=== PATIENT | female | born 1940 | race Caucasian/White ===

== ENCOUNTER 2022-01-18 09:50 | Day surgery (SDC) | payer MEDICARE, OTHER, SELFPAY ==
--- NOTE | ~2022-01-18 | FL_ITS ---
EXAMINATION: FL GUIDED LUMBAR PUNCTURE CLINICAL INFORMATION: Peripheral neuropathy. COMPARISON: None TECHNIQUE: Following explaining fluoroscopic lumbar puncture procedure, benefits and risks, a written consent was obtained. Patient was placed prone and low back area was cleaned and draped in the usual sterile manner. 1% lidocaine was inserted overlying the L3-L4 disc level. A 22-gauge spinal needle then was inserted with a left paramidline approach intrathecally at the L3-L4 disc level. Patient was placed in left lateral decubitus view and CSF collected in 4 test tubes. Postprocedure, needle was withdrawn and complete hemostasis achieved at puncture site. Sterile Band-Aid applied postprocedure. Patient tolerated procedure extremely well. FINDINGS: On visualized images, there is maintained lumbar lordosis. The vertebral height, alignment and disc heights are normal. There is hardware seen overlying the sacrum with a solitary electrode. Approximately 10 mL of clear CSF fluid was collected in 4 test tubes and sent to lab. FLUOROSCOPY TIME: 0.8 minutes DOSE AREA PRODUCT: 4.779 uGy-m2 (microgray-meter squared) FL/FL guided lumbar puncture LP IMPRESSION: Successful fluoroscopy-guided lumbar puncture performed at L3-L4 disc level.
[2022-01-18 10:08] VITALS: BMI 20.5
[2022-01-18 10:19] LABS: Basophils Percent Auto 0.4 % (0-2); Eosinophils Percent Auto 0.4 % (0-4); Hemoglobin 9.9 g/dl (12.0-16.0); Imm Gran Abs Auto 0.01 X10*3/uL (0.00-0.03); Imm Gran Pct Auto 0.2 % (0.0-0.4); Lymphocytes Absolute Auto 0.1 X10*3/uL (1.2-4.9); MANUAL DIFF FLAG SCAN; Mean Corpuscular HGB Conc 31.9 g/dl (31.0-35.0); Mean Corpuscular Volume 84.5 fL (80.0-98.0); Mean Platelet Volume 11.9 fL (9.4-12.3); Monocytes Absolute Auto 0.2 X10*3/uL (0.1-1.2); Monocytes Percent Auto 4.7 % (2-11); Neutrophils Absolute Auto 4.1 x10*3/uL (2.0-8.3); Neutrophils Percent Auto 92.3 % (45-73); Platelet Count 139 X10*3/uL (160-400); Red Blood Count 3.67 X10*6/uL (4.20-5.50); Red Cell Distribution Width 15.3 % (11.0-16.0); SCAN SMEAR FLAG 1; White Blood Count 4.5 X10*3/uL (4.8-10.8)
[2022-01-18 10:25] LABS: INTERNATIONAL NORM RATIO 1.2 (0.9-1.1); Prothrombin Time 13.6 SEC (10.0-13.1)
[2022-01-18 10:28] LABS: Partial Thromboplastin Time 29.2 SEC (26.0-36.4)
[2022-01-18 10:37] LABS: SLIDE REVIEW VERIFIED
[2022-01-18 12:53] VITALS: BP 110/29; PULSE 56; RESP 18; TEMP 37.4; O2SAT 93
--- NOTE | 2022-01-18 13:11 | ECG_ITS ---
Test Reason : New on set AFIB Blood Pressure : / mmHG Vent. Rate : 061 BPM Atrial Rate : 061 BPM P-R Int : 180 ms QRS Dur : 126 ms QT Int : 478 ms P-R-T Axes : 057 048 076 degrees QTc Int : 481 ms Sinus bradycardia with Premature supraventricular complexes Left ventricular hypertrophy with QRS widening and repolarization abnormality ( Sokolow-Galvan , Arie product , Romhilt-Wilson ) Abnormal ECG No previous ECGs available Referred By: Kavon Galvan Electronically Signed By:ALICE FERGUSON MD
[2022-01-18 13:23] VITALS: BP 126/45; PULSE 55; RESP 18; O2SAT 92
[2022-01-18 13:53] VITALS: BP 125/34; PULSE 63; RESP 18; O2SAT 93
[2022-01-18 14:23] VITALS: BP 113/26; PULSE 56; RESP 18; O2SAT 93
[2022-01-18 14:52] LABS: CSF Appearance Clear, Colorless; CSF Tube # 1
[2022-01-18 14:53] VITALS: BP 117/30; PULSE 61; RESP 20; O2SAT 93
[2022-01-18 15:03] LABS: Appearance CSF CLEAR; CSF Tube # 4; Glucose CSF 80 mg/dL; Total Protein CSF 37.1 mg/dL (15-45)
[2022-01-18 15:04] LABS: CSF Monos 30 %; Color CSF COLORLESS; Lymphocytes CSF 70 %; Neutrophils CSF 0 %; Red Blood Cell CSF 0 MM*3; White Blood Cell CSF 7 MM*3
[2022-01-18 15:23] VITALS: BP 121/34; PULSE 63; RESP 20; TEMP 36.6; O2SAT 93
== END 2022-01-18 15:47 | disposition home or self-care (01) ==
PROVIDERS: Radiology Diagnostic Radiology; PCP Family Medicine; Visit Provider Psychiatry & Neurology Neurology
PROC: 009U3ZZ Drainage of Spinal Canal, Percutaneous Approach (ICD-10-PCS; CPT 62270; principal; 2022-01-18 11:00)
DX: G62.9 Polyneuropathy, unspecified (principal); G70.00 Myasthenia gravis without (acute) exacerbation; R26.89 Other abnormalities of gait and mobility; J44.9 Chronic obstructive pulmonary disease, unspecified; D64.9 Anemia, unspecified; D69.6 Thrombocytopenia, unspecified; Z85.6 Personal history of leukemia; Z79.899 Other long term (current) drug therapy; Z96.659 Presence of unspecified artificial knee joint
CPT/HCPCS: 36415; 62328; 82945; 84157; 85025; 85610; 85730; 87015; 87070; 87205; 89051; 93005

== ENCOUNTER 2023-08-11 14:16 | Inpatient (IN) | payer MEDICARE, OTHER, SELFPAY ==
[2023-08-11] VITALS (8 sets, daily range): BP systolic 115–141; BP diastolic 36–59; PULSE 77–92; RESP 18–33; TEMP 36.7–37.3; O2SAT 74–100; BMI 23.5
--- NOTE | ~2023-08-11 | CT_ITS ---
EXAMINATION: CT CHEST WITHOUT IV CONTRAST CLINICAL INFORMATION: COMPARISON: Previous chest x-ray 08/11/2023. TECHNIQUE: Axial images through the chest without IV contrast. Sagittal and coronal reconstructions on the technologist workstation. This CT examination was performed using dose optimization techniques as appropriate, variously including the following: *Automated exposure control *Adjustment of mA and/or kV according to patient size (this includes techniques or standardized protocols for targeted exams where dose is matched to indication/reason for exam; i.e. extremities or head) *Use of iterative reconstruction technique DLP: 184 mGy-cm FINDINGS: There is evidence of emphysema. There is increased ground-glass attenuation and interstitial markings, right lung greater than left, questionable for pulmonary edema. Differential would include pneumonia. There is denser compressive atelectasis in the lower lobes adjacent to the pleural effusions, right greater than left. There is a 5 mm left lower lobe pulmonary nodule axial image 34 series 2. There is a 1.2 cm nodule in the peripheral or subpleural lateral segment of the right middle lobe. It is uncertain whether this represents area of atelectasis as it appears somewhat linear on sagittal and coronal reconstructed images. The heart is slightly enlarged. Small pericardial effusion. Severe coronary artery and aortic valve calcification. Probable anemia. Evaluation for adenopathy limited due to lack of IV contrast. There is shotty mediastinal lymphadenopathy in the paratracheal pre- and subcarinal regions. There may be calcified left hilar lymph nodes. There are bilateral pleural effusions, moderate on the right and small on the left. There is evidence of severe atherosclerotic disease in the upper abdomen with extensive vascular calcification. Degenerative changes of the spine and mild scoliosis. No fracture seen. CT/CT chest wo IV con IMPRESSION: Enlarged heart and severe coronary artery and aortic valve calcification. Small pericardial effusion. Probable anemia. Emphysema. Ground-glass attenuation and increased interstitial markings in the lungs, right greater than left, question of representing asymmetric distribution of pulmonary edema. Bilateral pleural effusions, right greater than left. 5 mm left lower lobe nodule. According to the UPDATED 2017 Fleischner Society recommendations, the advised followup imaging for less than 6 mm solid nodule: Low-risk no chest CT follow up, and high-risk, optional chest CT follow up in 1 year.
--- NOTE | ~2023-08-11 | XR_ITS ---
EXAMINATION: XR CHEST CLINICAL INFORMATION: Shortness of breath COMPARISON: None available. TECHNIQUE: Frontal view of the chest was obtained. FINDINGS: Chest radiograph is grossly abnormal with increased interstitial markings and some alveolar disease. No prior radiographs are available for comparison. There is mild cardiac enlargement. A small left pleural effusion is present. A trace right pleural effusion is likely present. Findings could be secondary to combination of bronchiectasis/interstitial lung disease plus/minus CHF. Infectious etiologies cannot be entirely excluded. There is bilateral rotator cuff tears along with an old healed fracture of the lateral left femoral neck and old healed left rib fractures. XR/XR chest 1V IMPRESSION: Abnormal chest radiograph with increased interstitial markings and some alveolar disease. Findings could be secondary to combination of bronchiectasis/interstitial lung disease plus/minus CHF. Infectious etiologies cannot be entirely excluded.
--- NOTE | ~2023-08-11 | XR_ITS ---
EXAMINATION: XR CHEST CLINICAL INFORMATION: Low oxygen saturation COMPARISON: 08/11/2023 TECHNIQUE: Frontal view of the chest was obtained. FINDINGS: Cardiomegaly and pulmonary vascular congestion. Interval increased airspace opacity in the perihilar region of the right lung. Findings include generalized interstitial prominence, persistent patchy opacity in the left upper lobe and small pleural effusions. No pneumothorax. A CardioMEMS device projects over the left lower lobe pulmonary artery. There is atherosclerotic calcification of the aorta. No acute osseous abnormality. XR/XR chest 1V IMPRESSION: Cardiomegaly, pulmonary opacities (likely edema) and small pleural effusions. Interval worsening patchy airspace opacity in the perihilar region of the right lung compared to 08/11/2023.
--- NOTE | ~2023-08-11 | NM_ITS ---
PULMONARY PERFUSION ONLY STUDY: CLINICAL INDICATION: Hypoxia. Suspected pulmonary thromboembolism. PROCEDURE: Following the intravenous administration of 1.0 millicuries technetium 99m MAA, images of the chest were obtained in multiple projections using a gamma scintiphotographic camera. COMPARISON: Chest radiograph done on 08/11/2023. PERFUSION IMAGES: No large segmental perfusion defects or other perfusion abnormalities are noted. NM/NM pul perfusion IMPRESSION: Based on perfusion only modified PIOPED 2 criteria, pulmonary thromboembolism is absent.
--- NOTE | 2023-08-11 14:23 | ED_ITS ---
HPI - General Adult General Chief complaint: Dyspnea Stated complaint: SOB Time Seen by Provider: 08/11/23 14:23 History of Present Illness HPI narrative: The patient is an 83-year-old woman with a history of congestive heart failure and COPD who presents with 2 or 3 days of worsening shortness of breath. She is normally on 2 L of oxygen at home. She was mildly short of breath yesterday but today became significantly more short of breath with a cough. She does not believe that she has had any fever. No significant chest pain. No peripheral edema. Patient says that she has been having problems with shortness of breath multiple times over the last couple of months. She has been hospitalized 3 times at [facility]. She says she has been home for about a week following her most recent hospitalization. When paramedics came to her house today to pick her up she asked to be taken to [facility] but because her oxygen saturations were in the 70s paramedics felt they needed to come to the nearest hospital. Related Data Allergies Allergy/AdvReac Type Severity Reaction Status Date / Time SARI Inhibitors Allergy Unknown ANGIOEDEMA Verified 08/11/23 14:24 [SARI INHIBITORS] Review of Systems 2 Review of Systems: Yes all other systems are reviewed and are negative PMFSH Social History Social History Smoked in Last 30 Days: Yes Use of substances other than those prescribed or required for medical reasons: No Advance Directives: No Advance Directives Information Provided: No Physical Exam ED Vital Signs: Vital Signs - 24 hr 08/11/23 14:23 08/11/23 14:36 08/11/23 15:05 Temperature 99.1 F Pulse Rate 92 92 85 Respiratory Rate 33 H 31 H 25 H Blood Pressure 141/38 H 129/45 L Pulse Oximetry 93 84 L Oxygen Delivery Method Non-Rebreather Mask Oxymask Oxygen Flow Rate 6 08/11/23 15:35 08/11/23 16:01 08/11/23 17:11 Temperature 98.1 F Pulse Rate 85 77 Respiratory Rate 25 H 18 Blood Pressure 126/36 L 115/44 L Pulse Oximetry 83 L 100 Oxygen Delivery Method Oxymask Oxymask Oxygen Flow Rate 10 BMI result Body Mass Index 23.5 Const Other: The patient was awake and alert and looked quite short of breath. She had a non-rebreather mask with paramedics. She seemed very anxious as well. HENMT Other: Face is symmetrical. Airway clear. Eyes Other: Pupils are round equal, conjunctivae clear Neck Other: No adenopathy, I think there is jugular venous distention present Resp Other: The patient was tachypneic and had what I thought might be a combination of wheezes and crackles. Cardio Rate: regular rate Rhythm: regular rhythm Heart sounds: S1 normal heart sound present and S2 normal heart sound present GI Other: Abdomen is soft and nontender Skin Other: Skin is dry and unremarkable Neuro Other: The patient is awake and alert. Face is symmetrical. Speech was clear. Moves extremities with symmetrical tone. The patient seems neurologically intact. Extrem Other: No peripheral edema. The left lower leg seems mildly larger than the right but not remarkably so. Medications Administered Discontinued Medications Generic Name Dose Route Start Last Admin Trade Name Freq PRN Reason Stop Dose Admin Albuterol Sulfate 7.5 mg/ 0 mg 08/11/23 14:29 08/11/23 14:33 Albuterol/Ipratropium 3 ml INHALE 08/11/23 14:30 1 each ONCE ONE Administration Furosemide 80 mg 08/11/23 15:14 08/11/23 15:35 Furosemide 100 Mg/10 Ml Vial IVPUSH 08/11/23 15:15 80 mg ONCE ONE Administration Protocol Ceftriaxone Sodium 1 gm/ 50 mls @ 100 mls/hr 08/11/23 15:27 08/11/23 16:11 Sodium Chloride IV 08/11/23 15:56 Infused ONCE ONE Infusion Azithromycin 500 mg/ Sodium 250 mls @ 125 mls/hr 08/11/23 15:27 08/11/23 15:59 Chloride IV 08/11/23 17:26 125 mls/hr ONCE ONE Administration Methylprednisolone Sodium Succinate 80 mg 08/11/23 16:11 08/11/23 16:27 Methylprednisolone Sod Succ 125 Mg/2 Ml Vial IVPUSH 08/11/23 16:12 80 mg ONCE ONE Administration Ondansetron HCl 4 mg 08/11/23 14:30 08/11/23 15:04 Ondansetron Hcl 4 Mg/2 Ml Vial IVPUSH 08/11/23 14:31 4 mg ONCE ONE Administration Ondansetron HCl 4 mg 08/11/23 15:39 08/11/23 16:00 Ondansetron Hcl 4 Mg/2 Ml Vial IVPUSH 08/11/23 15:40 4 mg ONCE ONE Administration Medical Decision Making Medical Decision Making [facility] Narrative: The patient is an 83-year-old female with a history of congestive heart failure and COPD who presents in acute respiratory distress with hypoxia. She looks significantly ill and was seen right away. My initial impression was that she had a great deal of wheezing and so she was given bronchodilator treatments. A portable chest x-ray I thought suggested congestive heart failure and so she was also given furosemide. She felt warm although she was not febrile. However she has had a cough. She was given IV antibiotics after blood cultures have been drawn. The patient reports that she has been trying to wean off steroids which were prescribed for apparent chronic inflammatory demyelinating polyneuropathy (she reports she received no benefit from the steroids). She was therefore somewhat reluctant to receive any steroids initially but ultimately accepted a dose of IV methylprednisolone. Patient was observed. Her oxygen saturations improved and her respiratory effort improved. I think she is stable for admission for the hospitalist service on telemetry. Of note the patient has some mild asymmetry of her lower legs with the left leg being slightly larger than the right. Given the abnormal x-ray in the abnormal breath sounds and the positive response to treatment for COPD and CHF I think pulmonary embolism would be very unlikely. Ultrasound was not available for a DVT steady. Lab Data 08/11/23 14:46 08/11/23 14:46 Labs: Lab Results 08/11/23 08/11/23 08/11/23 Range/Units 14:46 15:04 17:27 WBC 11.7 H (4.8-10.8) X10*3/uL RBC 4.06 L (4.20-5.50) X10*6/uL Hgb 9.0 L (12.0-16.0) g/dl Hct 31.4 L (37.0-47.0) % MCV 77.3 L (80.0-98.0) fL MCH 22.2 L (27.0-33.0) pg MCHC 28.7 L (31.0-35.0) g/dl RDW 17.1 H (11.0-16.0) % Plt Count 251 D (160-400) X10*3/uL MPV 11.6 (9.4-12.3) fL Immature Gran % (Auto) 0.6 H (0.0-0.4) % Neut % (Auto) 80.2 H (45-73) % Lymph % (Auto) 9.1 L (20-40) % [place] % (Auto) 7.3 (2-11) % Eos % (Auto) 2.1 (0-4) % Baso % (Auto) 0.7 (0-2) % Lymph # (Auto) 1.1 L (1.2-4.9) X10*3/uL [place] # (Auto) 0.9 (0.1-1.2) X10*3/uL Eos # (Auto) 0.3 (0.0-0.4) X10*3/uL Baso # (Auto) 0.1 (0.0-0.2) X10*3/uL Abs Immat Gran (auto) 0.07 H (0.00-0.03) X10*3/uL Absolute Neuts (auto) 9.4 H (2.0-8.3) x10*3/uL Absolute Nucleated RBC 0.000 (0.0-0.012) X10*3/uL Nucleated RBC % (auto) 0.0 (0.0-0.2) /100WBC PT 13.4 H (11.1-13.3) SEC INR 1.1 (0.9-1.1) VBG pH 7.38 (7.32-7.43) VBG pCO2 47 mmHg VBG pO2 140 mmHg VBG HCO3 28 H (22-26) mmol/L VBG O2 Saturation 99.0 % VBG Base Excess 2.9 mmol/L Sodium 140 (135-145) mmol/L Potassium 4.8 (3.3-5.1) mmol/L Chloride 104 (96-108) mmol/L Carbon Dioxide 24 (22-29) mmol/L Anion Gap 17 (12-20) BUN 23 H (9-16) mg/dL Creatinine 1.29 (0.5-1.4) mg/dL Estim Creat Clear Calc 25.7 Estimated GFR 39 Random Glucose 200 H (60-115) mg/dL Lactic Acid 2.2 H* (0.5-2.0) mmol/L Lactic Acid F/U @ 2Hr 1.1 (0.5-2.0) mmol/L Calcium 9.2 (8.4-10.2) mg/dL Magnesium 2.2 (1.6-2.6) mg/dL Total Bilirubin 0.4 (0.0-1.0) mg/dL Direct Bilirubin 0.1 (0.0-0.5) mg/dL AST 18 (5-31) U/L ALT 7 (0-31) U/L Alkaline Phosphatase 61 (39-117) U/L Troponin I High Sens 40.6 H 42.2 H (<3.5-17.0) ng/L C-Reactive Protein 0.86 H (< or = 0.50) mg/dL B-Natriuretic Peptide 3159 H (<100) pg/mL Total Protein 7.0 (6.5-8.0) g/dL Albumin 3.7 (3.5-5.0) g/dL Urine Color Yellow Urine Appearance Clear Urine pH 5.5 (5.0-9.0) Ur Specific [place] 1.010 (1.005-1.025) Urine Protein Negative (Neg-Trace) mg/dL Urine Glucose (UA) Negative (Negative) mg/dL Urine Ketones Negative (Negative) mg/dL Urine Blood Negative (Negative) Urine Nitrite Negative (Negative) Ur Leukocyte Esterase Small (1+) H (Negative) Urine RBC 0-2 (0-2) /HPF Urine WBC 6-10 (0-5) /HPF Ur Squamous Epith Cells 0-2 (0-2) /HPF Urine Bacteria None Seen (None Seen) Hyaline Casts 3-5 (0-2) /LPF Ethyl Alcohol < 10 mg/dL Influenza Type A (PCR) NEGATIVE (Negative) Influenza Type B (PCR) NEGATIVE (Negative) RSV RNA Qual (PCR) NEGATIVE (Negative) SARS-CoV-2 RNA (RT-PCR) NEGATIVE (Negative) Critical Care Time Critical Care Time Total Critical Care Time: 45 Attestation: The patient was critically ill with a high probability of imminent or life- threatening deterioration. ?I spent greater than 30 minutes of discontinuous time evaluating the patient, delivering critical care at the bedside, discussing evaluating data with consultants. ?Critical care time does not include time spent performing separately billable procedures or teaching. ?Time spent performing critical care with 45 minutes. Discharge Plan Discharge Clinical Impression: Acute dyspnea, Congestive heart failure, Acute exacerbation of chronic obstructive pulmonary disease Patient Disposition: Admitted As Inpatient Print Language: Georgian
--- NOTE | 2023-08-11 14:23 | ECG_ITS ---
Test Reason : SOB Blood Pressure : / mmHG Vent. Rate : 086 BPM Atrial Rate : 086 BPM P-R Int : 194 ms QRS Dur : 128 ms QT Int : 388 ms P-R-T Axes : 034 078 -07 degrees QTc Int : 464 ms Sinus rhythm with Premature ventricular complexes Left ventricular hypertrophy with QRS widening and repolarization abnormality ( Arie product ) Inferior infarct (cited on or before 11-AUG-2023) Abnormal ECG When compared with ECG of 18-JAN-2022 13:26, Premature ventricular complexes are now Present Referred By: Nasim Estevez Electronically Signed By:ARIC PRIETO
[2023-08-11] MEDS: Albuterol Sulfate 7.5 MG, Albuterol/Iprat 2.5/0.5MG 3 ML 3 ML INHALE (14:33)
[2023-08-11 14:57] LABS: MANUAL DIFF FLAG NO
[2023-08-11 15:01] LABS: Basophils Absolute Auto 0.1 X10*3/uL (0.0-0.2); Basophils Percent Auto 0.7 % (0-2); Eosinophils Absolute Auto 0.3 X10*3/uL (0.0-0.4); Eosinophils Percent Auto 2.1 % (0-4); Hematocrit 31.4 % (37.0-47.0); Imm Gran Abs Auto 0.07 X10*3/uL (0.00-0.03); Imm Gran Pct Auto 0.6 % (0.0-0.4); Lymphocytes Absolute Auto 1.1 X10*3/uL (1.2-4.9); Lymphocytes Percent Auto 9.1 % (20-40); Mean Corpuscular HGB Conc 28.7 g/dl (31.0-35.0); Mean Corpuscular Hemoglobin 22.2 pg (27.0-33.0); Mean Corpuscular Volume 77.3 fL (80.0-98.0); Mean Platelet Volume 11.6 fL (9.4-12.3); Monocytes Absolute Auto 0.9 X10*3/uL (0.1-1.2); Monocytes Percent Auto 7.3 % (2-11); Neutrophils Absolute Auto 9.4 x10*3/uL (2.0-8.3); Neutrophils Percent Auto 80.2 % (45-73); Platelet Count 251 X10*3/uL (160-400); Red Blood Count 4.06 X10*6/uL (4.20-5.50); Red Cell Distribution Width 17.1 % (11.0-16.0); White Blood Count 11.7 X10*3/uL (4.8-10.8)
[2023-08-11] MEDS: ondansetron HCL 4 MG/2 ML VIAL IVPUSH ×3 (15:04→19:31)
[2023-08-11 15:11] LABS: INTERNATIONAL NORM RATIO 1.1 (0.9-1.1); Prothrombin Time 13.4 SEC (11.1-13.3)
[2023-08-11 15:11] LABS: Venous Blood Gas Refer to POC result
[2023-08-11 15:12] LABS: VBG Base Excess 2.9 mmol/L; VBG HCO3 28 mmol/L (22-26); VBG pCO2 47 mmHg; VBG pH 7.38 (7.32-7.43); VBG pO2 140 mmHg
[2023-08-11 15:22] LABS: Ethanol < 10 mg/dL; Lactic Acid 2.2 mmol/L (0.5-2.0)
[2023-08-11 15:28] LABS: Alanine Aminotransferase 7 U/L (0-31); Albumin Level 3.7 g/dL (3.5-5.0); Alkaline Phosphatase 61 U/L (39-117); Anion Gap 17 (12-20); Aspartate Amino Transferase 18 U/L (5-31); Bilirubin Direct 0.1 mg/dL (0.0-0.5); Bilirubin Total 0.4 mg/dL (0.0-1.0); Blood Urea Nitrogen 23 mg/dL (9-16); C Reactive Protein 0.86 mg/dL (< or = 0.50); Calcium 9.2 mg/dL (8.4-10.2); Carbon Dioxide 24 mmol/L (22-29); Chloride 104 mmol/L (96-108); Creatinine Clr Calc Pharmacy 25.7; Estimated Glomerular Filt Rate 39; Glucose Random 200 mg/dL (60-115); Magnesium 2.2 mg/dL (1.6-2.6); Potassium 4.8 mmol/L (3.3-5.1); Sodium 140 mmol/L (135-145)
[2023-08-11 15:32] LABS: Troponin-I High Sensitivity 40.6 ng/L (<3.5-17.0)
[2023-08-11] MEDS: cefTRIAXone sodium 1 GM in 0.9 % Sodium Chloride 50 ML IV (15:35)
[2023-08-11] MEDS: Furosemide 100 MG/10 ML VIAL 80 MG IVPUSH (15:35)
[2023-08-11 15:57] LABS: Influenza A PCR NEGATIVE (Negative); Influenza B PCR NEGATIVE (Negative); Resp Syncy Virus RNA Qual PCR NEGATIVE (Negative); SARS COV2 PCR INHOUSE NEGATIVE (Negative)
[2023-08-11] MEDS: Azithromycin 500 MG in 0.9 % Sodium Chloride 250 ML 125 MG IV (15:59)
[2023-08-11 16:18] LABS: B Type Natriuretic Peptide 3159 pg/mL (<100)
[2023-08-11] MEDS: methylPREDNISolone Sod Succ 125 MG/2 ML VIAL 80 MG IVPUSH (16:27)
[2023-08-11 16:53] LABS: Reflex Lactate? Lactic Acid Added
[2023-08-11 17:38] LABS: Appearance Urine Clear; Color Urine Yellow; Glucose Urine UA Negative (Negative); Leukocyte Esterase Urine Small (1+) (Negative); Nitrite Urine Negative (Negative); PH 5.5 (5.0-9.0); UMIC TRIGGER UACC YES; Urine Blood Negative (Negative); Urine Ketones Negative (Negative); Urine Protein Negative (Neg-Trace)
[2023-08-11 17:46] LABS: ~Lactic Acid-LAB USE ONLY 1.1 mmol/L (0.5-2.0)
[2023-08-11 17:57] LABS: Troponin-I High Sensitivity 42.2 ng/L (<3.5-17.0)
[2023-08-11 18:02] LABS: Bacteria Urine None Seen (None Seen); RBC Urine 0-2 /HPF (0-2); Squamous Epithelial Cell Urine 0-2 /HPF (0-2); UACC Culture Trigger YES
--- NOTE | 2023-08-11 18:04 | PC.NURSE ---
ARRIVES FROM HOME AFTER BECOMING SOB TODAY. RECENT ADMISSION TO [facility] FOR THE SAME. HX CHF, COPD, ON 2L OF O2 AT BASELINE. ABD BREATHING ON ARRIVAL, 93% ON NRB. RHONCHI, WHEEZING AUDIBLE, ALERT, ORIENTED X4. SIGNIFICANT IMPROVEMENT WITH WORK OF BREATHING AFTER DUONEB, LASIX THOUGH SPO2 REMAINED 83% AT 6L FOR A PERIOD. DENIES CP. NITRO PASTE HELD DUE TO LOW DBP. PT RETAINS URINE, SELF CATHS AT HOME, ADAMES INSERTED. 2 #20S IN LFA. PT HAS COMPLAINED OF ONGOING NAUSEA, DENIES ANY PAIN, REQUESTS TO BE LEFT ALONE TO SLEEP.SHE IS AWARE OF THE PLAN FOR ADMISSION TO INPT.
[2023-08-11] MEDS: Albuterol Sulfate 2.5 MG, Albuterol/Iprat 2.5/0.5MG 3 ML 3 ML INHALE (18:34)
--- NOTE | 2023-08-11 18:40 | P.HPHOSP_ITS ---
History of Present Illness Date of Service: 08/11/23 Attending physician on admission: Jorge Luis Carcamo Chief Complaint: sob 83-year-old female with history of AAA, coronary artery disease, heart failure reduced ejection fraction with EF 30-35%, moderate to severe aortic valve regurgitation, hypertension, hyperlipidemia, history of myasthenia gravis, peripheral artery disease, asthma/copd, chronic hypoxemic respiratory failure, urinary retention requiring self straight catheterization, and CKD stage 3 presented to the ED earlier today for evaluation of dyspnea. The patient has had multiple admissions to [facility] with most recent discharge on 07/22 for CHF exacerbation. She follows with Dr. Sanders in Cardiology and reports compliance with her 2 L supplemental O2 at rest and 3 L with ambulation as well as 40 mg of Lasix in the morning and 20 mg of Lasix in the evening. She states that she was feeling well following her discharge but around 3 days ago began developing shortness of breath again both at rest and with exertion that worsened significantly last night. She is also endorsing significant orthopnea and bilateral lower extremity edema. Does not weigh herself on a daily basis but does not feel she is gained weight. She denies any recent illness. No fevers, chills, abdominal pain, nausea, vomiting, diarrhea, dysuria, cough, wheezing, lightheadedness, chest pain. Since arrival, was tachypneic with significant improvement following IV diuresis. She was also initially on a non-rebreather but has been weaned to OxyMask now maintaining oximetry 95%. She is afebrile. There is a mild leukocytosis of 11.7. She is stable, chronic microcytic anemia. Renal function baseline, electrolyte levels normal. Initial lactic acid 2.2, repeat 1.1. Initial troponin 40.6, repeat 42.2 BNP 3159. Procalcitonin 0.04. Urinalysis unremarkable. Negative for COVID-19, RSV, flu. Ethyl alcohol level undetectable. Chest x-ray shows increased interstitial markings and some alveolar disease likely combination of bronchiectasis, interstitial lung disease plus-minus CHF. EKG shows sinus rhythm with PSVT complexes and occasional PVCs with nonspecific T-wave abnormality but no ST or depressions. In the ED, has received multiple DuoNebs, 80 mg Lasix, ceftriaxone, azithromycin, 80 mg methylprednisolone and ondansetron. Review of Systems 2 Review of Systems: Yes all other systems are reviewed and are negative [facility] Medical History Peripheral artery disease Myasthenia gravis Hypertension Urinary retention AAA (abdominal aortic aneurysm) Moderate to severe aortic valve regurgitation Heart failure with reduced ejection fraction Cigarette smoker Asthma-COPD overlap syndrome Social History Smoked in Last 30 Days: Yes Use of substances other than those prescribed or required for medical reasons: No Advance Directives: No Advance Directives Information Provided: No Meds Allergies Allergy/AdvReac Type Severity Reaction Status Date / Time SARI Inhibitors Allergy Unknown ANGIOEDEMA Verified 08/11/23 14:24 [SARI INHIBITORS] Active Medications: Current Medications Acetaminophen (Acetaminophen 325 Mg Tablet) 650 mg PO Q6H PRN PRN Reason: Pain, Mild, headache, fever Enoxaparin Sodium (Enoxaparin Sodium 30 Mg/0.3 Ml Syringe) 30 mg SUBCUT Q24H [facility] Magnesium Hydroxide (Milk Of Magnesia 30 Ml Oral.Susp) 30 ml PO DAILY PRN PRN Reason: Constipation Ondansetron HCl (Ondansetron Hcl 4 Mg/2 Ml Vial) 4 mg IVPUSH Q8H PRN PRN Reason: Nausea and Vomiting Sodium Chloride (0.9 % Sodium Chloride Flush 3 Ml Syringe) 3 ml IVFLUSH QSHIFT [facility] Home Medications ?Medication ?Instructions ?Recorded ?Confirmed ?Last Taken ?Type albuterol sulfate 90 mcg/actuation 2 puff inhalation Q4H PRN wheezing 08/11/23 08/11/23 Unknown History aerosol inhaler amlodipine 10 mg tablet 10 mg PO BID 08/11/23 08/11/23 Unknown History atenolol 50 mg tablet 25 mg PO BID 08/11/23 08/11/23 Unknown History budesonide 0.5 mg/2 mL suspension 0.5 mg inhalation BID 08/11/23 08/11/23 Unknown History for nebulization desmopressin 0.2 mg tablet 0.2 mg PO DAILY 08/11/23 08/11/23 Unknown History furosemide 20 mg tablet 20 mg PO BEDTIME 08/11/23 08/11/23 Unknown History furosemide 20 mg tablet 40 mg PO QAM 08/11/23 08/11/23 Unknown History ipratropium 0.5 mg-albuterol 3 mg 3 ml inhalation QID 08/11/23 08/11/23 Unknown History (2.5 mg base)/3 mL nebulization soln losartan 50 mg tablet 50 mg PO DAILY 08/11/23 08/11/23 Unknown History mirabegron 50 mg tablet,extended 50 mg PO DAILY 08/11/23 08/11/23 Unknown History release 24 hr omeprazole 40 mg capsule,delayed 40 mg PO BID PRN Heartburn 08/11/23 08/11/23 Unknown History release oxcarbazepine 600 mg tablet 600 mg PO BEDTIME 08/11/23 08/11/23 Unknown History prednisone 1 mg tablet 0.5 mg PO DAILY 08/11/23 08/11/23 Unknown History rosuvastatin 20 mg tablet 20 mg PO DAILY 08/11/23 08/11/23 Unknown History terazosin 10 mg capsule 20 mg PO BEDTIME 08/11/23 Unknown History trazodone 100 mg tablet 100 mg PO DAILY 08/11/23 08/11/23 Unknown History Physical Exam 2 Vital Signs and Narrative: Vital Signs: Last Vital Signs Temp 98.1 F 08/11/23 17:11 Pulse 81 08/11/23 18:36 Resp 18 08/11/23 18:36 BP 115/44 L 08/11/23 16:01 Pulse Ox 100 08/11/23 17:11 O2 Del Method Oxymask 08/11/23 17:11 O2 Flow Rate 10 08/11/23 16:01 Oxygen Flow Rate 15 08/11/23 14:23 BMI result Body Mass Index 23.5 Constitutional - Awake and Alert, No apparent distress Eyes - PERRLA, EOMI Cardiovascular - S1S2, RRR, 2+ LLE edema , 1+ RLE, no jvd Respiratory - Normal lung expansion, Normal respiratory effort, No respiratory distress on oxymask, crackles bilaterally R>L Gastrointestinal - NT / ND; +BS; No rebound or guarding Extremities - no calf tenderness bilaterally, no swelling Skin - Warm/Dry Neurological - Alert & oriented x3 Psychological - Appropriate affect Results Labs 08/11/23 14:46 08/11/23 14:46 Labs: Laboratory Results - last 24 hr 08/11/23 08/11/23 08/11/23 14:46 15:04 17:27 MCV 77.3 L MCH 22.2 L MCHC 28.7 L RDW 17.1 H Plt Count 251 D MPV 11.6 Immature Gran % (Auto) 0.6 H Neut % (Auto) 80.2 H Lymph % (Auto) 9.1 L [place] % (Auto) 7.3 Eos % (Auto) 2.1 Baso % (Auto) 0.7 Lymph # (Auto) 1.1 L [place] # (Auto) 0.9 Eos # (Auto) 0.3 Baso # (Auto) 0.1 Abs Immat Gran (auto) 0.07 H Absolute Neuts (auto) 9.4 H Absolute Nucleated RBC 0.000 Nucleated RBC % (auto) 0.0 PT 13.4 H INR 1.1 VBG pH 7.38 VBG pCO2 47 VBG pO2 140 VBG HCO3 28 H VBG O2 Saturation 99.0 VBG Base Excess 2.9 Anion Gap 17 Estim Creat Clear Calc 25.7 Estimated GFR 39 Random Glucose 200 H Lactic Acid 2.2 H* Lactic Acid F/U @ 2Hr 1.1 Calcium 9.2 Magnesium 2.2 Total Bilirubin 0.4 Direct Bilirubin 0.1 AST 18 ALT 7 Alkaline Phosphatase 61 Troponin I High Sens 40.6 H 42.2 H C-Reactive Protein 0.86 H B-Natriuretic Peptide 3159 H Total Protein 7.0 Albumin 3.7 Urine Color Yellow Urine Appearance Clear Urine pH 5.5 Ur Specific [place] 1.010 Urine Protein Negative Urine Glucose (UA) Negative Urine Ketones Negative Urine Blood Negative Urine Nitrite Negative Ur Leukocyte Esterase Small (1+) H Urine RBC 0-2 Urine WBC 6-10 Ur Squamous Epith Cells 0-2 Urine Bacteria None Seen Hyaline Casts 3-5 Ethyl Alcohol < 10 Influenza Type A (PCR) NEGATIVE Influenza Type B (PCR) NEGATIVE RSV RNA Qual (PCR) NEGATIVE SARS-CoV-2 RNA (RT-PCR) NEGATIVE Imaging Radiologist's Impressions: Impressions Chest X-Ray 08/11/23 15:10 IMPRESSION: Abnormal chest radiograph with increased interstitial markings and some alveolar disease. Findings could be secondary to combination of bronchiectasis/interstitial lung disease plus/minus CHF. Infectious etiologies cannot be entirely excluded. Assessment and Plan (1) Congestive heart failure: Status: Acute (2) Acute on chronic hypoxic respiratory failure: Status: Acute Plan 83-year-old female with history of AAA, coronary artery disease, heart failure reduced ejection fraction with EF 30-35%, moderate to severe aortic valve regurgitation, hypertension, hyperlipidemia, history of myasthenia gravis, peripheral artery disease, asthma/copd, chronic hypoxemic respiratory failure, urinary retention requiring self straight catheterization, and CKD stage 3 admitted for further management of acute on chronic hypoxemic respiratory failure secondary to CHF exacerbation. #acute on chronic hypoxemic respiratory failure secondary to CHF exacerbation -CXR with increased interstitial markings. BNP >3000 -Echo Summary 06/30/2023 from [facility]: The left ventricle is moderately dilated (5.9 cm). There is asymmetric septal hypertrophy (2.1 cm). The left ventricular wall thickness is upper normal. The LV systolic function is moderately reduced. The left ventricular ejection fraction is 30-35 %. There is moderate global hypokinesis with regional variation. Unable to assess diastolic function due to severe mitral annulus calcification. The aortic valve is trileaflet. The aortic valve appears severely calcified. The aortic valve leaflet opening is mildly decreased. There is moderate aortic regurgitation. There is mild aortic stenosis. There is severe posterior mitral annular calcification. The mitral valve and subchordal apparatus appear calcified. Mitral leaflet excursion is mildly reduced. There is moderate to severe mitral regurgitation. There is no significant mitral stenosis (mean gradient of 4 mmHg at heart rate of 67 bpm). The ascending aorta and aortic root are normal in size. Abdominal aorta is not well visualized, dilatation is suggested in limited images - recommend dedicated evaluation. The right ventricular size and function appears grossly normal. There is a small circumferential pericardial effusion most notable anteriorly. There is no evidence of tamponade. The left ventricle is moderately dilated (5.9 cm). There is asymmetric septal hypertrophy (2.1 cm). The left ventricular wall thickness is upper normal. The LV systolic function is moderately reduced. The left ventricular ejection fraction is 30-35 %. There is moderate global hypokinesis with regional variation. Unable to assess diastolic function due to severe mitral annulus calcification. The ascending aorta and aortic root are normal in size. Abdominal aorta is not well visualized, dilatation is suggested in limited images - recommend dedicated evaluation. The pulmonary artery systolic pressure estimation is 65-70 mmHg. There is pulmonary hypertension. There is a small circumferential pericardial effusion most notable anteriorly. There is no evidence of tamponade. -40 mg IV Lasix b.i.d. -strict I&O-has Odell catheter in place due to urinary retention (straight catheterizes at home at baseline) -daily weights -cardiac diet -consider cardiology consult if no improvement -continue atenolol, losartan. Apparently was previously on spironolactone but is no longer taking -follow renal function, lytes. Trend BNP -wean supplemental O2 as tolerated # asthma/COPD overlap -doubt acute exacerbation. Patient denies cough, wheezing -DuoNebs p.r.n., continue maintenance inhaler # hypertension -continue atenolol, amlodipine, furosemide, losartan # myasthenia gravis -has been tapering prednisone, currently on 0.5 mg daily, continue # urinary retention -hold desmopressin. Can continue mirabegron. Self-catheterizations at home, has Odell catheter in place at this time for fluid management with urinary retention # CKD stage 3 -renal function baseline # PVD/hyperlipidemia -statin DVT prophylaxis-Lovenox Full code Patient requires inpatient stay at least 2 midnights for management of CHF exacerbation with acute on chronic hypoxemic respiratory failure requiring IV diuresis, close monitoring of intake and output, as well as close monitoring of respiratory status to monitor for and prevent decompensation Quality Stroke Does the patient have a stroke diagnosis?: No VTE Prior VTE?: No VTE Risk Level:: Medical - moderate - high VTE Device Contraindication: Treatment Not Indicated VTE Drug Contraindication: N/A - Med Ordered
[2023-08-11 18:58] LABS: Procalcitonin 0.04 ng/mL
--- NOTE | 2023-08-11 19:16 | PHA.MEDREC ---
Addendum entered by Ronnie Monsivais 08/12/23 09:19: Called [facility] pharmacy, they have no prescriptions on file for her, confirmed terazosin on med rec according to claim history. Original Note: Pharmacy Consult ? Medication Reconciliation Pharmacy has completed the medication reconciliation. spoke with patient. She was able to confirm trazodone, rosuvastatin, oxcarbazepine, prednisone, omeprazole, atenolol (she said she cuts in half), myrbetriq, lasix, and reported she was on 3 breathing treatments but claims only show 2 and an albuterol inhaler. Used [facility] discharge medications and claim history to confirm the ones she was unsure about. Patient said she was not on spironolactone and only on one water pill (the lasix) despite it being in claims and in [facility] discharge list, Provider is aware. Terazosin on [facility] discharge med list says 1mg at bedtime but in her claims it has 10 mg capsules - 2 at bedtime. Will call [facility] pharmacy in the morning to se if anything was filled there that is not showing on claims. Will update and let provider know of any changes. Patient also reports cutting 3 of her medications in half however she was only able to recognize one that she cuts in half.
[2023-08-11] MEDS: Enoxaparin Sodium 30 MG/0.3 ML SYRINGE SUBCUT (19:32)
[2023-08-11] MEDS: Nicotine 7 MG PATCH.TD24 TRANSDERMA (19:32)
[2023-08-11] MEDS: LORazepam 0.5 MG TABLET PO (19:32)
[2023-08-11 19:51] LABS: Iron 48 mcg/dL (30-160); Percent Iron Saturation 15 % (15-50); Total Iron Binding Capacity 312 mcg/dL (228-428); Unsaturated Iron Binding 264 ug/dL
[2023-08-11 20:07] LABS: Ferritin 19 ng/mL (10-250)
[2023-08-11] MEDS: Metoclopramide HCl 10 MG/2 ML VIAL 5 MG IVPUSH (21:14)
[2023-08-11] MEDS: LORazepam 1 MG TABLET PO (21:14)
[2023-08-11] MEDS: OXcarbazepine 300 MG TABLET 600 MG PO (21:15)
[2023-08-11] MEDS: amLODIPine Besylate 10 MG TABLET PO (21:15)
[2023-08-11] MEDS: atenoloL 25 MG TABLET PO (21:15)
[2023-08-12] VITALS (14 sets, daily range): BP systolic 114–141; BP diastolic 38–64; PULSE 65–85; RESP 18–25; TEMP 36.4–37.8; O2SAT 84–98; BMI 21.8
[2023-08-12] MEDS: 0.9 % Sodium Chloride Flush 3 ML SYRINGE IVFLUSH ×3 (00:33→21:38)
--- NOTE | 2023-08-12 02:00 | PC.NURSE ---
Patient is alert and oriented x3. VSS, O2 Sat 94-98% on Oxymask at 4 LPM. Patient denies any pain at present, currently resting in a stretcher bed, call argueta in reach, plan of care ongoing.
[2023-08-12 05:01] LABS: MANUAL DIFF FLAG NO
[2023-08-12 05:02] LABS: Basophils Percent Auto 0.2 % (0-2); Hematocrit 27.3 % (37.0-47.0); Hemoglobin 7.9 g/dl (12.0-16.0); Imm Gran Abs Auto 0.02 X10*3/uL (0.00-0.03); Imm Gran Pct Auto 0.3 % (0.0-0.4); Lymphocytes Absolute Auto 0.3 X10*3/uL (1.2-4.9); Lymphocytes Percent Auto 5.3 % (20-40); Mean Corpuscular HGB Conc 28.9 g/dl (31.0-35.0); Mean Corpuscular Hemoglobin 22.1 pg (27.0-33.0); Mean Corpuscular Volume 76.3 fL (80.0-98.0); Mean Platelet Volume 10.7 fL (9.4-12.3); Monocytes Absolute Auto 0.3 X10*3/uL (0.1-1.2); Monocytes Percent Auto 5.7 % (2-11); Neutrophils Absolute Auto 5.2 x10*3/uL (2.0-8.3); Neutrophils Percent Auto 88.5 % (45-73); Platelet Count 165 X10*3/uL (160-400); Red Blood Count 3.58 X10*6/uL (4.20-5.50); White Blood Count 5.8 X10*3/uL (4.8-10.8)
[2023-08-12 05:15] LABS: Anion Gap 16 (12-20); Blood Urea Nitrogen 27 mg/dL (9-16); Calcium 8.9 mg/dL (8.4-10.2); Carbon Dioxide 25 mmol/L (22-29); Chloride 104 mmol/L (96-108); Estimated Glomerular Filt Rate 40; Glucose Random 125 mg/dL (60-115); Sodium 141 mmol/L (135-145)
--- NOTE | 2023-08-12 05:15 | PC.NURSE ---
Patient appears to be sleeping, respirations even and unlabored, call argueta within reach, plan of care ongoing
[2023-08-12 05:23] LABS: B Type Natriuretic Peptide 4460 pg/mL (<100)
--- NOTE | 2023-08-12 09:27 | MHC.CM.PN ---
CM met with Patient at bedside and attempted to address IMM with her but she stated that she has, 50 thousand copies, and did not want CM leaving another one. Patient lives in a condo with a Friend and she uses a walker to assist with mobility. Patient may benefit from a VNA and her home O2 is supplied by [facility]. CM has initiated and will follow for dc planning. Patient did not want to discuss a HCP and the PCP is Dr.Lauren Ford.
[2023-08-12] MEDS: Budesonide 0.5 MG/2 ML AMPUL.NEB INHALE ×2 (09:33→19:55)
--- NOTE | 2023-08-12 09:51 | PM.CNCAR ---
History of Present Illness History of Present Illness Date of Service: 08/12/23 Chief complaint: Chf exacerbation Narrative: This is a cardiology consultation regarding congestive heart failure. Per recent [facility] discharge summary, she has cardiomyopathy ejection fraction 30-35% and she also has COPD with supplemental oxygen therapy. It appears that she has had multiple hospitalizations for a combination of both COPD and CHF. It seems that she also has a CardioMEMS in place. Question of myasthenia gravis and demyelinating polyneuropathy. She was admitted to [facility] and discharged in July. She states that she again did not feel good and her shortness of breath got worse and now she has back in the hospital. No significant leg swelling at this time. No clear-cut anginal-type complaints. Review of Systems Review of Systems: Yes all other systems are reviewed and are negative Constitutional: Constitutional: Reports as per HPI and Reports no additional constitutional complaints Eyes: Eyes: Reports as per HPI and Denies no additional eye complaints ENT: Denies system reviewed and no additional complaints, except as documented and Reports as per HPI Cardiovascular: Cardiovascular: Reports as per HPI, Reports no additional cardiovascular complaints, Denies acrocyanosis, Denies cool extremities, Denies chest pain, Denies leg edema, Denies lightheadedness, Denies palpitations and Reports dyspnea Respiratory: Respiratory: Reports as per HPI, Denies no additional respiratory complaints and Reports dyspnea Gastrointestinal: Gastrointestinal: Reports as per HPI and Denies no additional gastrointestinal complaints Genitourinary: Genitourinary: Reports as per HPI Musculoskeletal: Musculoskeletal: Reports no additional musculoskeletal complaints and Reports as per HPI Integumentary/Breasts: Skin/Breast: Reports system reviewed and no additional complaints, except as docu Neurologic: Reports system reviewed and no additional complaints, except as documented and Reports as per HPI Psychiatric: Psychiatric: Reports no additional psychiatric complaints and Reports as per HPI Endocrine: Endocrine: Reports no additional endocrine complaints, Reports as per HPI and Denies palpitations Hematologic/Lymphatic: Hematologic/Lymphatic: Reports no additional hematologic/lymphatic complaints and Reports as per HPI Allergic/Immunologic: Allergic/Immunologic: Reports no additional allergic/immunologic complaints and Reports as per HPI [facility] Past Medical History Medical History Peripheral artery disease Myasthenia gravis Hypertension Urinary retention AAA (abdominal aortic aneurysm) Moderate to severe aortic valve regurgitation Heart failure with reduced ejection fraction Cigarette smoker Asthma-COPD overlap syndrome Family History Pertinent family history: No pertinent family history Social History Social History Household Members: Friend(s) Housing: Condominium Do you presently have visiting nurse or other home services: No Patient Tobacco Use Status: Former Tobacco user Tobacco use type: Cigarette Smoked in Last 30 Days: Yes e-Cigarette/Vaping Use: Never Used Patient Interested in Nicotine Replacement: Yes Patient Given Instructions on How to Stop Smoking: Yes Date Education Initiated: 08/12/23 Second Hand Smoke Exposure: Yes Use of substances other than those prescribed or required for medical reasons: No Currently Displaying Signs/Symptoms of Drug Intoxication Withdrawal: No Any prior treatment program specific to substance use: No Have you been hit, kicked, punched, or otherwise hurt by someone within the past year? If so, by whom?: No Do you feel safe in your current relationship?: Yes Is there a partner from a previous relationship who is making you feel unsafe now?: No Are you made to feel afraid or neglected: No Advance Directives: No Advance Directives Information Provided: No Do you have a plan to hurt others: No Plan Recently lost weight without trying: No Nutrition Risks: No Nutritional Risk Patient : No : No Poor oral hygiene: No service: No Meds Allergies Allergy/AdvReac Type Severity Reaction Status Date / Time SARI Inhibitors Allergy Unknown ANGIOEDEMA Verified 08/11/23 14:24 [SARI INHIBITORS] Active Medications: Current Medications Acetaminophen (Acetaminophen 325 Mg Tablet) 650 mg PO Q6H PRN PRN Reason: Pain, Mild, headache, fever Albuterol Sulfate (Albuterol Sulfate 90 Mcg 8 Gm Inhaler) 2 puff INHALE Q4H PRN PRN Reason: wheezing Albuterol/Ipratropium (Albuterol/Iprat 2.5/0.5mg 3 Ml Ampul.Neb) 3 ml INHALE RQ4H WHILE AWAKE PRN PRN Reason: Shortness of Breath/Wheezing Amlodipine Besylate (Amlodipine Besylate 10 Mg Tablet) 10 mg PO BID [facility]; Protocol Last Admin: 08/11/23 21:15 Dose: 10 mg Atenolol (Atenolol 25 Mg Tablet) 25 mg PO BID [facility]; Protocol Last Admin: 08/11/23 21:15 Dose: 25 mg Atorvastatin Calcium (Atorvastatin Calcium 80 Mg Tablet) 80 mg PO DAILY [facility] Budesonide (Budesonide 0.5 Mg/2 Ml Ampul.Neb) 0.5 mg INHALE RBID [facility] Last Admin: 08/12/23 09:33 Dose: 0.5 mg Enoxaparin Sodium (Enoxaparin Sodium 30 Mg/0.3 Ml Syringe) 30 mg SUBCUT Q24H [facility] Last Admin: 08/11/23 19:32 Dose: 30 mg Furosemide (Furosemide 40 Mg/4 Ml Vial) 40 mg IVPUSH BID@0900,1800 [facility]; Protocol Losartan Potassium (Losartan Potassium 50 Mg Tablet) 50 mg PO DAILY [facility]; Protocol Magnesium Hydroxide (Milk Of Magnesia 30 Ml Oral.Susp) 30 ml PO DAILY PRN PRN Reason: Constipation Methylprednisolone Sodium Succinate (Methylprednisolone Sod Succ 40 Mg/Ml Vial) 40 mg IVPUSH Q24H [facility] Mirabegron (Mirabegron 50 Mg Tab.Er.24h) 50 mg PO DAILY [facility] Nicotine (Nicotine 7 Mg Patch.Td24) 7 mg TRANSDERMA DAILY [facility] Last Admin: 08/11/23 19:32 Dose: 7 mg Omeprazole (Omeprazole 40 Mg Capsule.Dr) 40 mg PO BID PRN PRN Reason: Heartburn Ondansetron HCl (Ondansetron Hcl 4 Mg/2 Ml Vial) 4 mg IVPUSH Q8H PRN PRN Reason: Nausea and Vomiting Last Admin: 08/11/23 19:31 Dose: 4 mg Oxcarbazepine (Oxcarbazepine 300 Mg Tablet) 600 mg PO BEDTIME [facility] Last Admin: 08/11/23 21:15 Dose: 600 mg Prednisone (Prednisone 1 Mg Tablet) 0.5 mg PO DAILY [facility] Sodium Chloride (0.9 % Sodium Chloride Flush 3 Ml Syringe) 3 ml IVFLUSH QSHIFT [facility] Last Admin: 08/12/23 00:33 Dose: 3 ml Trazodone HCl (Trazodone Hcl 100 Mg Tablet) 100 mg PO DAILY [facility] Home Medications ?Medication ?Instructions ?Recorded ?Confirmed ?Last Taken ?Type albuterol sulfate 90 mcg/actuation 2 puff inhalation Q4H PRN wheezing 08/11/23 08/11/23 Unknown History aerosol inhaler amlodipine 10 mg tablet 10 mg PO BID 08/11/23 08/11/23 Unknown History atenolol 50 mg tablet 25 mg PO BID 08/11/23 08/11/23 Unknown History budesonide 0.5 mg/2 mL suspension 0.5 mg inhalation BID 08/11/23 08/11/23 Unknown History for nebulization desmopressin 0.2 mg tablet 0.2 mg PO DAILY 08/11/23 08/11/23 Unknown History furosemide 20 mg tablet 20 mg PO BEDTIME 08/11/23 08/11/23 Unknown History furosemide 20 mg tablet 40 mg PO QAM 08/11/23 08/11/23 Unknown History ipratropium 0.5 mg-albuterol 3 mg 3 ml inhalation QID 08/11/23 08/11/23 Unknown History (2.5 mg base)/3 mL nebulization soln losartan 50 mg tablet 50 mg PO DAILY 08/11/23 08/11/23 Unknown History mirabegron 50 mg tablet,extended 50 mg PO DAILY 08/11/23 08/11/23 Unknown History release 24 hr omeprazole 40 mg capsule,delayed 40 mg PO BID PRN Heartburn 08/11/23 08/11/23 Unknown History release oxcarbazepine 600 mg tablet 600 mg PO BEDTIME 08/11/23 08/11/23 Unknown History prednisone 1 mg tablet 0.5 mg PO DAILY 08/11/23 08/11/23 Unknown History rosuvastatin 20 mg tablet 20 mg PO DAILY 08/11/23 08/11/23 Unknown History terazosin 10 mg capsule 20 mg PO BEDTIME 08/11/23 08/12/23 Unknown History trazodone 100 mg tablet 100 mg PO DAILY 08/11/23 08/11/23 Unknown History Physical Exam Vital Signs: Vital Signs: Last Vital Signs Temp 97.7 F 08/12/23 07:42 Pulse 77 08/12/23 09:35 Resp 18 08/12/23 09:35 BP 124/40 L 08/12/23 07:42 Pulse Ox 98 08/12/23 07:42 O2 Del Method Oxymask 08/12/23 07:42 O2 Flow Rate 5.5 08/12/23 07:42 Oxygen Flow Rate 15 08/11/23 14:23 BMI result Body Mass Index 21.8 Const: Other: Does not look too comfortable but she is also being moved from the stretcher to bed. Orientation/consciousness: patient oriented x3 HEENT: Other: Unremarkable Head: Yes normal to inspection Neck: Neck: Yes normal visual inspection Chest: Chest palpation & inspection: normal inspection of the chest Resp: Auscultation: rhonchi and diminished lung sounds Cardio: Palpation: normal PMI Heart sounds: S1 normal heart sound present, S2 normal heart sound present, no gallops, no murmurs and no rubs GI: Palpation (GI): Soft to palpation Back/Spine/Pelvis: Other: unremarkable Skin: General skin exam: no rashes or lesions noted Neuro: General: patient oriented x3 Extrem: General: Yes normal to inspection Psych: Mental Status: mental status grossly normal Objective Labs and Meds 08/12/23 04:57 08/12/23 04:57 Lab results: Laboratory Results - last 24 hr 08/11/23 08/11/23 08/11/23 14:46 15:04 17:27 WBC 11.7 H RBC 4.06 L Hgb 9.0 L Hct 31.4 L MCV 77.3 L MCH 22.2 L MCHC 28.7 L RDW 17.1 H Plt Count 251 D MPV 11.6 Immature Gran % (Auto) 0.6 H Neut % (Auto) 80.2 H Lymph % (Auto) 9.1 L [place] % (Auto) 7.3 Eos % (Auto) 2.1 Baso % (Auto) 0.7 Lymph # (Auto) 1.1 L [place] # (Auto) 0.9 Eos # (Auto) 0.3 Baso # (Auto) 0.1 Abs Immat Gran (auto) 0.07 H Absolute Neuts (auto) 9.4 H Absolute Nucleated RBC 0.000 Nucleated RBC % (auto) 0.0 PT 13.4 H INR 1.1 VBG pH 7.38 VBG pCO2 47 VBG pO2 140 VBG HCO3 28 H VBG O2 Saturation 99.0 VBG Base Excess 2.9 Sodium 140 Potassium 4.8 Chloride 104 Carbon Dioxide 24 Anion Gap 17 BUN 23 H Creatinine 1.29 Estim Creat Clear Calc 25.7 Estimated GFR 39 Random Glucose 200 H Lactic Acid 2.2 H* Lactic Acid F/U @ 2Hr 1.1 Calcium 9.2 Magnesium 2.2 Iron 48 TIBC 312 % Saturation 15 Unsat Iron Binding 264 Ferritin 19 Total Bilirubin 0.4 Direct Bilirubin 0.1 AST 18 ALT 7 Alkaline Phosphatase 61 Troponin I High Sens 40.6 H 42.2 H C-Reactive Protein 0.86 H B-Natriuretic Peptide 3159 H Total Protein 7.0 Albumin 3.7 Procalcitonin 0.04 Urine Color Yellow Urine Appearance Clear Urine pH 5.5 Ur Specific [place] 1.010 Urine Protein Negative Urine Glucose (UA) Negative Urine Ketones Negative Urine Blood Negative Urine Nitrite Negative Ur Leukocyte Esterase Small (1+) H Urine RBC 0-2 Urine WBC 6-10 Ur Squamous Epith Cells 0-2 Urine Bacteria None Seen Hyaline Casts 3-5 Ethyl Alcohol < 10 Influenza Type A (PCR) NEGATIVE Influenza Type B (PCR) NEGATIVE RSV RNA Qual (PCR) NEGATIVE SARS-CoV-2 RNA (RT-PCR) NEGATIVE 08/12/23 04:57 WBC 5.8 RBC 3.58 L Hgb 7.9 L Hct 27.3 L MCV 76.3 L MCH 22.1 L MCHC 28.9 L RDW 17.0 H Plt Count 165 D MPV 10.7 Immature Gran % (Auto) 0.3 Neut % (Auto) 88.5 H Lymph % (Auto) 5.3 L [place] % (Auto) 5.7 Eos % (Auto) 0.0 Baso % (Auto) 0.2 Lymph # (Auto) 0.3 L [place] # (Auto) 0.3 Eos # (Auto) 0.0 Baso # (Auto) 0.0 Abs Immat Gran (auto) 0.02 Absolute Neuts (auto) 5.2 Absolute Nucleated RBC 0.000 Nucleated RBC % (auto) 0.0 PT INR VBG pH VBG pCO2 VBG pO2 VBG HCO3 VBG O2 Saturation VBG Base Excess Sodium 141 Potassium 4.0 Chloride 104 Carbon Dioxide 25 Anion Gap 16 BUN 27 H Creatinine 1.27 Estim Creat Clear Calc 26.0 Estimated GFR 40 Random Glucose 125 H Lactic Acid Lactic Acid F/U @ 2Hr Calcium 8.9 Magnesium Iron TIBC % Saturation Unsat Iron Binding Ferritin Total Bilirubin Direct Bilirubin AST ALT Alkaline Phosphatase Troponin I High Sens C-Reactive Protein B-Natriuretic Peptide 4460 H Total Protein Albumin Procalcitonin Urine Color Urine Appearance Urine pH Ur Specific [place] Urine Protein Urine Glucose (UA) Urine Ketones Urine Blood Urine Nitrite Ur Leukocyte Esterase Urine RBC Urine WBC Ur Squamous Epith Cells Urine Bacteria Hyaline Casts Ethyl Alcohol Influenza Type A (PCR) Influenza Type B (PCR) RSV RNA Qual (PCR) SARS-CoV-2 RNA (RT-PCR) ECG Interpretation: EKG with sinus rhythm; LVH/repolarization findings and can not exclude old inferior infarct. PVC. Imaging Radiologist's impression: Impressions Chest X-Ray 08/11/23 15:10 IMPRESSION: Abnormal chest radiograph with increased interstitial markings and some alveolar disease. Findings could be secondary to combination of bronchiectasis/interstitial lung disease plus/minus CHF. Infectious etiologies cannot be entirely excluded. Assessment and Plan (1) Acute on chronic systolic congestive heart failure, NYHA class 3: Status: Acute (2) Nonrheumatic aortic valve regurgitation: Status: Acute (3) Nonrheumatic mitral valve regurgitation: Status: Acute (4) Pulmonary hypertension: Status: Acute Plan Per recent echocardiogram at [facility], LV moderately dilated; LVEF 30-35%; calcified aortic valve with moderate regurgitation; mild stenosis; severe mitral annular calcification with moderate to severe mitral regurgitation; moderate tricuspid regurgitation; RVSP of 65-70mmHg. Dilated IVC with blunted inspiratory collapse. Small circumferential pericardial effusion. Chest x-ray with some interstitial markings, alveolar disease. Suspected to be some combination of bronchiectasis/interstitial lung disease/CHF. Labs reveal anemia. Slightly increased lactic acid. Elevated cardiac BNP in the 3000s/4000s. Slightly increased troponins but flat. Overall, cardiomyopathy, significant valvular disease including mitral and aortic regurgitation, COPD on supplemental oxygen, recurrent hospitalizations with shortness of breath. Suspect some combination of the above. Unclear if she has been assess for any transcatheter valvular interventions but she seems to be fairly of high risk. For now, diurese and treat COPD as well. Will follow. Procedures Date of Service Date of Service: 08/12/23
[2023-08-12] MEDS: Mirabegron 50 MG TAB.ER.24H PO (10:26)
[2023-08-12] MEDS: amLODIPine Besylate 10 MG TABLET PO (10:26)
[2023-08-12] MEDS: Losartan Potassium 50 MG TABLET PO (10:26)
[2023-08-12] MEDS: Atorvastatin Calcium 80 MG TABLET PO (10:26)
[2023-08-12] MEDS: traZODone HCL 100 MG TABLET PO (10:26)
[2023-08-12] MEDS: atenoloL 25 MG TABLET PO ×2 (10:26→20:25)
[2023-08-12] MEDS: Nicotine 7 MG PATCH.TD24 TRANSDERMA (10:29)
[2023-08-12] MEDS: methylPREDNISolone Sod Succ 40 MG/ML VIAL IVPUSH ×2 (10:30→21:38)
[2023-08-12] MEDS: predniSONE 1 MG TABLET 0.5 MG PO (10:30)
[2023-08-12] MEDS: Furosemide 40 MG/4 ML VIAL IVPUSH (10:30)
[2023-08-12] MEDS: ondansetron HCL 4 MG/2 ML VIAL IVPUSH ×2 (10:31→21:38)
[2023-08-12] MEDS: Albuterol/Iprat 2.5/0.5MG 3 ML AMPUL.NEB INHALE ×2 (11:38→23:31)
[2023-08-12 12:19] LABS: ABG Base Excess 4.6 mmol/L; ABG HCO3 28 mmol/L (22-26); ABG pCO2 39 mmHg (32-45); ABG pH 7.46 (7.35-7.45); ABG pO2 54 mmHg (83-108)
--- NOTE | 2023-08-12 12:32 | P.PNIM_ITS ---
Subjective Subjective Date of Service: 08/12/23 Interval History: short of breath and hypoxic, currently on 12L via [place] cannula and SaO2 only 84% not hypercarbic on ABG wheezing negative 900 mL thus far Review of Systems Review of Systems: Yes all other systems are reviewed and are negative Physical Exam 2 Vital Signs: Vital Signs: Last Vital Signs Temp 97.5 F 08/12/23 10:23 Pulse 79 08/12/23 11:41 Resp 25 H 08/12/23 12:24 BP 141/64 H 08/12/23 10:23 Pulse Ox 90 L 08/12/23 10:23 O2 Del Method Nasal Cannula, Hu midified O2 08/12/23 10:23 O2 Flow Rate 5.5 08/12/23 07:42 Oxygen Flow Rate 15 08/11/23 14:23 BMI result Body Mass Index 21.8 Gen: in acute respiratory distress HEENT: sclera anicteric, moist mucus membranes Neck: supple Lungs: diminished, bilateral inspiratory crackles and expiratory wheezes, tachypneic Heart: regular rate and rhythm, no murmurs Abd: soft, non-tender, non-distended Ext: no edema Skin: warm/well-perfused Neuro: alert and oriented x3, no focal findings Psych: appropriate affect Objective Data Active Medications Acetaminophen (Acetaminophen 325 Mg Tablet) 650 mg PO Q6H PRN PRN Reason: Pain, Mild, headache, fever Albuterol Sulfate (Albuterol Sulfate 90 Mcg 8 Gm Inhaler) 2 puff INHALE Q4H PRN PRN Reason: wheezing Albuterol/Ipratropium (Albuterol/Iprat 2.5/0.5mg 3 Ml Ampul.Neb) 3 ml INHALE RQ4H WHILE AWAKE PRN PRN Reason: Shortness of Breath/Wheezing Last Admin: 08/12/23 11:38 Dose: 3 ml Documented By: DAT Amlodipine Besylate (Amlodipine Besylate 10 Mg Tablet) 10 mg PO BID [facility]; Protocol Last Admin: 08/12/23 10:26 Dose: 10 mg Documented By: CATARINO Atenolol (Atenolol 25 Mg Tablet) 25 mg PO BID [facility]; Protocol Last Admin: 08/12/23 10:26 Dose: 25 mg Documented By: CATARINO Atorvastatin Calcium (Atorvastatin Calcium 80 Mg Tablet) 80 mg PO DAILY [facility] Last Admin: 08/12/23 10:26 Dose: 80 mg Documented By: CATARINO Budesonide (Budesonide 0.5 Mg/2 Ml Ampul.Neb) 0.5 mg INHALE RBID [facility] Last Admin: 08/12/23 09:33 Dose: 0.5 mg Documented By: HENNA Enoxaparin Sodium (Enoxaparin Sodium 30 Mg/0.3 Ml Syringe) 30 mg SUBCUT Q24H [facility] Last Admin: 08/11/23 19:32 Dose: 30 mg Documented By: VTIALIY Furosemide 200 mg/ Sodium (Chloride) 100 mls @ 2.5 mls/hr IVCONT .Q24H [facility] Losartan Potassium (Losartan Potassium 50 Mg Tablet) 50 mg PO DAILY [facility]; Protocol Last Admin: 08/12/23 10:26 Dose: 50 mg Documented By: CATARINO Magnesium Hydroxide (Milk Of Magnesia 30 Ml Oral.Susp) 30 ml PO DAILY PRN PRN Reason: Constipation Methylprednisolone Sodium Succinate (Methylprednisolone Sod Succ 40 Mg/Ml Vial) 40 mg IVPUSH Q12H [facility] Mirabegron (Mirabegron 50 Mg Tab.Er.24h) 50 mg PO DAILY [facility] Last Admin: 08/12/23 10:26 Dose: 50 mg Documented By: CATARINO Nicotine (Nicotine 7 Mg Patch.Td24) 7 mg TRANSDERMA DAILY [facility] Last Admin: 08/12/23 10:29 Dose: 7 mg Documented By: CATARINO Omeprazole (Omeprazole 40 Mg Capsule.Dr) 40 mg PO BID PRN PRN Reason: Heartburn Ondansetron HCl (Ondansetron Hcl 4 Mg/2 Ml Vial) 4 mg IVPUSH Q8H PRN PRN Reason: Nausea and Vomiting Last Admin: 08/12/23 10:31 Dose: 4 mg Documented By: CATARINO Oxcarbazepine (Oxcarbazepine 300 Mg Tablet) 600 mg PO BEDTIME [facility] Last Admin: 08/11/23 21:15 Dose: 600 mg Documented By: VITALIY Prednisone (Prednisone 1 Mg Tablet) 0.5 mg PO DAILY [facility] Last Admin: 08/12/23 10:30 Dose: 0.5 mg Documented By: CATARINO Sodium Chloride (0.9 % Sodium Chloride Flush 3 Ml Syringe) 3 ml IVFLUSH QSHIFT [facility] Last Admin: 08/12/23 10:31 Dose: 3 ml Documented By: CATARINO Trazodone HCl (Trazodone Hcl 100 Mg Tablet) 100 mg PO DAILY [facility] Last Admin: 08/12/23 10:26 Dose: 100 mg Documented By: CATARINO Labs 08/12/23 04:57 08/12/23 04:57 Labs: Laboratory Results - last 24 hr 08/11/23 08/11/23 08/11/23 14:46 15:04 17:27 MCV 77.3 L MCH 22.2 L MCHC 28.7 L RDW 17.1 H Plt Count 251 D MPV 11.6 Immature Gran % (Auto) 0.6 H Neut % (Auto) 80.2 H Lymph % (Auto) 9.1 L [place] % (Auto) 7.3 Eos % (Auto) 2.1 Baso % (Auto) 0.7 Lymph # (Auto) 1.1 L [place] # (Auto) 0.9 Eos # (Auto) 0.3 Baso # (Auto) 0.1 Abs Immat Gran (auto) 0.07 H Absolute Neuts (auto) 9.4 H Absolute Nucleated RBC 0.000 Nucleated RBC % (auto) 0.0 PT 13.4 H INR 1.1 O2 Saturation ABG pH at Pt Temp ABG pCO2 at Pt Temp ABG pO2 at Pt Temp ABG HCO3 ABG Base Excess (Actual) VBG pH 7.38 VBG pCO2 47 VBG pO2 140 VBG HCO3 28 H VBG O2 Saturation 99.0 VBG Base Excess 2.9 Anion Gap 17 Estim Creat Clear Calc 25.7 Estimated GFR 39 Random Glucose 200 H Lactic Acid 2.2 H* Lactic Acid F/U @ 2Hr 1.1 Calcium 9.2 Magnesium 2.2 Iron 48 TIBC 312 % Saturation 15 Unsat Iron Binding 264 Ferritin 19 Total Bilirubin 0.4 Direct Bilirubin 0.1 AST 18 ALT 7 Alkaline Phosphatase 61 Troponin I High Sens 40.6 H 42.2 H C-Reactive Protein 0.86 H B-Natriuretic Peptide 3159 H Total Protein 7.0 Albumin 3.7 Procalcitonin 0.04 Urine Color Yellow Urine Appearance Clear Urine pH 5.5 Ur Specific [place] 1.010 Urine Protein Negative Urine Glucose (UA) Negative Urine Ketones Negative Urine Blood Negative Urine Nitrite Negative Ur Leukocyte Esterase Small (1+) H Urine RBC 0-2 Urine WBC 6-10 Ur Squamous Epith Cells 0-2 Urine Bacteria None Seen Hyaline Casts 3-5 Ethyl Alcohol < 10 Influenza Type A (PCR) NEGATIVE Influenza Type B (PCR) NEGATIVE RSV RNA Qual (PCR) NEGATIVE SARS-CoV-2 RNA (RT-PCR) NEGATIVE 08/12/23 08/12/23 04:57 12:11 MCV 76.3 L MCH 22.1 L MCHC 28.9 L RDW 17.0 H Plt Count 165 D MPV 10.7 Immature Gran % (Auto) 0.3 Neut % (Auto) 88.5 H Lymph % (Auto) 5.3 L [place] % (Auto) 5.7 Eos % (Auto) 0.0 Baso % (Auto) 0.2 Lymph # (Auto) 0.3 L [place] # (Auto) 0.3 Eos # (Auto) 0.0 Baso # (Auto) 0.0 Abs Immat Gran (auto) 0.02 Absolute Neuts (auto) 5.2 Absolute Nucleated RBC 0.000 Nucleated RBC % (auto) 0.0 PT INR O2 Saturation 84.0 ABG pH at Pt Temp 7.46 H ABG pCO2 at Pt Temp 39 ABG pO2 at Pt Temp 54 L ABG HCO3 28 H ABG Base Excess (Actual) 4.6 VBG pH VBG pCO2 VBG pO2 VBG HCO3 VBG O2 Saturation VBG Base Excess Anion Gap 16 Estim Creat Clear Calc 26.0 Estimated GFR 40 Random Glucose 125 H Lactic Acid Lactic Acid F/U @ 2Hr Calcium 8.9 Magnesium Iron TIBC % Saturation Unsat Iron Binding Ferritin Total Bilirubin Direct Bilirubin AST ALT Alkaline Phosphatase Troponin I High Sens C-Reactive Protein B-Natriuretic Peptide 4460 H Total Protein Albumin Procalcitonin Urine Color Urine Appearance Urine pH Ur Specific [place] Urine Protein Urine Glucose (UA) Urine Ketones Urine Blood Urine Nitrite Ur Leukocyte Esterase Urine RBC Urine WBC Ur Squamous Epith Cells Urine Bacteria Hyaline Casts Ethyl Alcohol Influenza Type A (PCR) Influenza Type B (PCR) RSV RNA Qual (PCR) SARS-CoV-2 RNA (RT-PCR) Microbiology Microbiology Results: Microbiology 08/11/23 17:27 Urine Culture - Preliminary Urine clean catch - Urine masters top No growth to date. Assessment and Plan (1) Pulmonary hypertension: Status: Acute (2) Nonrheumatic aortic valve regurgitation: Status: Acute (3) Acute on chronic systolic congestive heart failure, NYHA class 3: Status: Acute (4) Acute on chronic hypoxic respiratory failure: Status: Acute (5) Acute exacerbation of chronic obstructive pulmonary disease: Status: Acute Assessment and Plan: d2 83yo F with CAD, HFrEF 30-35%, mitral + aortic regurgitation, pHTN, chronic hypoxic RF on 2-4L O2 at home, HTN, HLD, hx MG, PAD, asthma/COPD, urinary retention dependent on self-catheterization, CKD3; recent admission to [facility] for CHF eaxcerbation presenting with 3d of exertional dyspnea, orthopnea, and leg swelling admitted for acute/chronic hypoxia due to CHF + COPD exacerbation acute/chronic HFrEF - switch to IV furosemide gtt; monitor I/O, daily weights, BNP, BMP, and Mg with diuresis - recent [June 2023] TTE at [facility]: LV dilated to 5.9cm, asymmetric septal hypertrophy of 2.1cm, upper-normal thickness of LV wall, LVEF 30-35%, moderate global hypokinesis with regional variation, dilated ascending aorta + root, PASP 65-70mmHg, small circumferential pericardial effusion, mod-sev mitral regurg, mod aor regurg - Cardiology consulted, following - continue atenolol + losartan acute asthma/COPD exacerbation - steroids, nebs treatments, maintenance inhalers acute/chronic hypoxic respiratory failure - ABG reviewed; place on CPAP CKD3 - SCr at baseline; monitor carefully with diuresis HTN - continue atenolol, amlodipine, furosemide, losartan PAD HLD - continue statin myasthenia gravis - has been tapering prednisone, currently on 0.5 mg daily urinary retention - hold desmopressin [antidiuretic effect]; continue mirabegron; [place] in place at this time VTE ppx - LMWH dispo - TBD In my clinical judgment, the patient requires continued inpatient hospitalization for the following reasons: resp failure, IV diuresis Total time managing care of this patient today: 55 minutes. Quality Stroke Does the patient have a stroke diagnosis?: No VTE Prior VTE?: No VTE Risk Level:: Medical - moderate - high VTE Device Contraindication: Treatment Not Indicated VTE Drug Contraindication: N/A - Med Ordered
[2023-08-12] MEDS: Furosemide 200 MG in 0.9 % Sodium Chloride 80 ML IVCONT (13:42)
[2023-08-12 14:53] LABS: ABG Refer to POC result
[2023-08-12] MEDS: Enoxaparin Sodium 30 MG/0.3 ML SYRINGE SUBCUT (18:20)
[2023-08-12] MEDS: OXcarbazepine 300 MG TABLET 600 MG PO (20:25)
[2023-08-13] VITALS (15 sets, daily range): BP systolic 115–127; BP diastolic 55–77; PULSE 57–95; RESP 17–22; TEMP 36.1–36.9; O2SAT 88–98
[2023-08-13 06:15] LABS: Anion Gap 15 (12-20); Blood Urea Nitrogen 46 mg/dL (9-16); Calcium 8.6 mg/dL (8.4-10.2); Carbon Dioxide 24 mmol/L (22-29); Chloride 103 mmol/L (96-108); Creatinine Clr Calc Pharmacy 19.5; Estimated Glomerular Filt Rate 29; Glucose Random 143 mg/dL (60-115); Magnesium 2.2 mg/dL (1.6-2.6); Potassium 3.9 mmol/L (3.3-5.1); Sodium 138 mmol/L (135-145)
[2023-08-13 06:19] LABS: B Type Natriuretic Peptide 4205 pg/mL (<100)
[2023-08-13] MEDS: amLODIPine Besylate 10 MG TABLET PO ×2 (07:49→19:46)
[2023-08-13] MEDS: Nicotine 7 MG PATCH.TD24 TRANSDERMA (07:49)
[2023-08-13] MEDS: atenoloL 25 MG TABLET PO ×2 (07:50→19:45)
[2023-08-13] MEDS: predniSONE 1 MG TABLET 0.5 MG PO (07:50)
[2023-08-13] MEDS: Albuterol/Iprat 2.5/0.5MG 3 ML AMPUL.NEB INHALE (07:50)
[2023-08-13] MEDS: Budesonide 0.5 MG/2 ML AMPUL.NEB INHALE ×2 (07:50→19:52)
[2023-08-13] MEDS: Atorvastatin Calcium 80 MG TABLET PO (07:53)
[2023-08-13] MEDS: methylPREDNISolone Sod Succ 40 MG/ML VIAL 60 MG IVPUSH ×3 (08:17→19:45)
[2023-08-13] MEDS: levoFLOXacin/D5W 750 MG/150 ML PIGGYBACK 100 MG IV (10:26)
[2023-08-13] MEDS: Mirabegron 50 MG TAB.ER.24H PO (10:26)
[2023-08-13] MEDS: 0.9 % Sodium Chloride Flush 3 ML SYRINGE IVFLUSH ×3 (10:28→19:47)
--- NOTE | 2023-08-13 11:01 | HO.PM.IMPN ---
Subjective Subjective Date of Service: 08/13/23 Interval History: feeling better now; on 55% fiO2 @ 40 Lpm no leg edema no chest pain negative 900 mL this admission Lasix gtt held due to elevated Cr Review of Systems Review of Systems: Yes all other systems are reviewed and are negative Physical Exam Vital Signs: Vital Signs: Last Vital Signs Temp 97.0 F 08/13/23 07:16 Pulse 69 08/13/23 07:51 Resp 19 08/13/23 07:51 BP 122/58 L 08/13/23 07:50 Pulse Ox 98 08/13/23 07:16 O2 Del Method High Flow Nasal C annula 08/13/23 07:16 O2 Flow Rate 38 08/13/23 07:16 FiO2 70 08/13/23 07:16 Oxygen Flow Rate 15 08/11/23 14:23 BMI result Body Mass Index 21.8 Gen: NAD HEENT: sclera anicteric, moist mucus membranes Neck: supple Lungs: diminished, bilateral fine inspiratory crackles, scattered rhonchi Heart: regular rate and rhythm, no murmurs Abd: soft, non-tender, non-distended Ext: no edema Skin: warm/well-perfused Neuro: alert and oriented x3, no focal findings Psych: appropriate affect Objective Data Active Medications Acetaminophen (Acetaminophen 325 Mg Tablet) 650 mg PO Q6H PRN PRN Reason: Pain, Mild, headache, fever Albuterol Sulfate (Albuterol Sulfate 90 Mcg 8 Gm Inhaler) 2 puff INHALE Q4H PRN PRN Reason: wheezing Albuterol/Ipratropium (Albuterol/Iprat 2.5/0.5mg 3 Ml Ampul.Neb) 3 ml INHALE RQ4H WHILE AWAKE PRN PRN Reason: Shortness of Breath/Wheezing Last Admin: 08/13/23 07:50 Dose: 3 ml Documented By: DAT Amlodipine Besylate (Amlodipine Besylate 10 Mg Tablet) 10 mg PO BID [facility]; Protocol Last Admin: 08/13/23 07:49 Dose: 10 mg Documented By: DAVID Atenolol (Atenolol 25 Mg Tablet) 25 mg PO BID [facility]; Protocol Last Admin: 08/13/23 07:50 Dose: 25 mg Documented By: DAVID Atorvastatin Calcium (Atorvastatin Calcium 80 Mg Tablet) 80 mg PO DAILY [facility] Last Admin: 08/13/23 07:53 Dose: 80 mg Documented By: DAVID Budesonide (Budesonide 0.5 Mg/2 Ml Ampul.Neb) 0.5 mg INHALE RBID [facility] Last Admin: 08/13/23 07:50 Dose: 0.5 mg Documented By: DAT Enoxaparin Sodium (Enoxaparin Sodium 30 Mg/0.3 Ml Syringe) 30 mg SUBCUT Q24H [facility] Last Admin: 08/12/23 18:20 Dose: 30 mg Documented By: CATARINO Furosemide 200 mg/ Sodium (Chloride) 100 mls @ 2.5 mls/hr IVCONT .Q24H [facility] Last Infusion: 08/13/23 08:15 Dose: 0 mg/hr, 0 mls/hr Documented By: DAVID Levofloxacin (Levaquin) 750 mg in 150 mls @ 100 mls/hr IV Q48H [facility] Last Admin: 08/13/23 10:26 Dose: 100 mls/hr Documented By: DAVID Losartan Potassium (Losartan Potassium 50 Mg Tablet) 50 mg PO DAILY [facility]; Protocol Last Admin: 08/12/23 10:26 Dose: 50 mg Documented By: CATARINO Magnesium Hydroxide (Milk Of Magnesia 30 Ml Oral.Susp) 30 ml PO DAILY PRN PRN Reason: Constipation Methylprednisolone Sodium Succinate (Methylprednisolone Sod Succ 40 Mg/Ml Vial) 60 mg IVPUSH Q6H [facility] Last Admin: 08/13/23 08:17 Dose: 60 mg Documented By: DAVID Mirabegron (Mirabegron 50 Mg Tab.Er.24h) 50 mg PO DAILY [facility] Last Admin: 08/13/23 10:26 Dose: 50 mg Documented By: DAVID Nicotine (Nicotine 7 Mg Patch.Td24) 7 mg TRANSDERMA DAILY [facility] Last Admin: 08/13/23 07:49 Dose: 7 mg Documented By: DAVID Omeprazole (Omeprazole 40 Mg Capsule.Dr) 40 mg PO BID PRN PRN Reason: Heartburn Ondansetron HCl (Ondansetron Hcl 4 Mg/2 Ml Vial) 4 mg IVPUSH Q8H PRN PRN Reason: Nausea and Vomiting Last Admin: 08/12/23 21:38 Dose: 4 mg Documented By: JACINTO Oxcarbazepine (Oxcarbazepine 300 Mg Tablet) 600 mg PO BEDTIME [facility] Last Admin: 08/12/23 20:25 Dose: 600 mg Documented By: JACINTO Prednisone (Prednisone 1 Mg Tablet) 0.5 mg PO DAILY [facility] Last Admin: 08/13/23 07:50 Dose: 0.5 mg Documented By: DAVID Sodium Chloride (0.9 % Sodium Chloride Flush 3 Ml Syringe) 3 ml IVFLUSH QSHIFT [facility] Last Admin: 08/13/23 10:28 Dose: 3 ml Documented By: DAVID Trazodone HCl (Trazodone Hcl 100 Mg Tablet) 100 mg PO BEDTIME [facility] Labs 08/12/23 04:57 08/13/23 05:50 Labs: Laboratory Results - last 24 hr 08/12/23 08/13/23 12:11 05:50 O2 Saturation 84.0 ABG pH at Pt Temp 7.46 H ABG pCO2 at Pt Temp 39 ABG pO2 at Pt Temp 54 L ABG HCO3 28 H ABG Base Excess (Actual) 4.6 Anion Gap 15 Estim Creat Clear Calc 19.5 Estimated GFR 29 Random Glucose 143 H Calcium 8.6 Magnesium 2.2 B-Natriuretic Peptide 4205 H Procalcitonin 1.00 Microbiology Microbiology Results: Microbiology 08/11/23 17:27 Urine Culture - Final Urine clean catch - Urine masters top 08/11/23 14:46 Blood Culture - Preliminary Blood - Venous No growth after 24 hours. 08/11/23 14:46 Blood Culture - Preliminary Blood - Venous No growth after 24 hours. Assessment and Plan (1) Pulmonary hypertension: Status: Acute (2) Nonrheumatic aortic valve regurgitation: Status: Acute (3) Acute on chronic systolic congestive heart failure, NYHA class 3: Status: Acute (4) Acute on chronic hypoxic respiratory failure: Status: Acute (5) Acute exacerbation of chronic obstructive pulmonary disease: Status: Acute Assessment and Plan: d3 83yo F with CAD, HFrEF 30-35%, mitral + aortic regurgitation, pHTN, chronic hypoxic RF on 2-4L O2 at home, HTN, HLD, hx MG, PAD, asthma/COPD, urinary retention dependent on self-catheterization, CKD3; [place] [facility] [place] presenting with 3d of exertional dyspnea, orthopnea, and leg swelling admitted for acute/chronic hypoxia due to CHF + COPD/bronchiectasis exacerbation acute/chronic HFrEF - hold furosemide gtt due to elevated BUN/Cr - recent [June 2023] [place] [facility] LV dilated to 5.9cm, asymmetric septal hypertrophy of 2.1cm, upper-normal thickness of LV wall, LVEF 30-35%, moderate global hypokinesis with regional variation, dilated ascending aorta + root, PASP 65-70mmHg, small circumferential pericardial effusion, mod-sev mitral regurg, mod aor regurg - Cardiology consulted, following - continue atenolol acute COPD/bronchiectatsis exacerbation - increase IV methylprednisolone, start levofloxacin, check sputum culture, trend PCT [1 today], continue nebs + inhalers acute/chronic hypoxic respiratory failure - HFNC, wean to NC as tolerated JUAN MIGUEL/CKD3 - likely overdiuresis; hold furosemide for now and recheck BMP in AM; also hold losartan HTN - continue atenolol, amlodipine; hold furosemide, losartan PAD HLD - continue statin myasthenia gravis - has been tapering prednisone, currently on 0.5 mg daily urinary retention - hold desmopressin [antidiuretic effect]; continue mirabegron; Odell in place at this time VTE ppx - LMWH dispo - TBD In my clinical judgment, the patient requires continued inpatient hospitalization for the following reasons: resp failure requiring HFNC Total time managing care of this patient today: 50 minutes. Quality Stroke Does the patient have a stroke diagnosis?: No VTE Prior VTE?: No VTE Risk Level:: Medical - moderate - high VTE Device Contraindication: Treatment Not Indicated VTE Drug Contraindication: N/A - Med Ordered
[2023-08-13 12:47] LABS: Adenovirus PCR Not Detected (Not Detect.); Bordetella parapertussis PCR Not Detected (Not Detect.); Bordetella pertussis PCR Not Detected (Not Detect.); Chlamydia pneumoniae PCR Not Detected (Not Detect.); Coronavirus 229E PCR Not Detected (Not Detect.); Coronavirus HKU1 PCR Not Detected (Not Detect.); Coronavirus NL63 PCR Not Detected (Not Detect.); Coronavirus OC43 PCR Not Detected (Not Detect.); Human metapneumovirus PCR Not Detected (Not Detect.); Influenza A PCR Not Detected (Not Detect.); Influenza B PCR Not Detected (Not Detect.); Mycoplasma pneumoniae PCR Not Detected (Not Detect.); Parainfluenza 1 PCR Not Detected (Not Detect.); Parainfluenza 2 PCR Not Detected (Not Detect.); Parainfluenza 3 PCR Not Detected (Not Detect.); Parainfluenza 4 PCR Not Detected (Not Detect.); RSV PCR Not Detected (Not Detect.); Rhino/Enterovirus PCR Not Detected (Not Detect.)
--- NOTE | 2023-08-13 13:19 | PM.CNPUL ---
History of Present Illness History of Present Illness Consult date: 08/13/23 Chief complaint: Chf exacerbation Narrative: 83-year-old lady with underlying emphysema followed by Dr. Faria at [facility], also significant cardiomyopathy with reduced ejection fraction of approximately 30-35%, severe aortic regurgitation and mitral disease, chronic hypoxemia on 3 L of supplemental oxygen with recent admission to [facility] for CHF exacerbation admitted on 08/11/2023 with dyspnea secondary to acute on chronic congestive heart failure also treated empirically for COPD exacerbation and community-acquired pneumonia. Patient states that her dyspnea is improving with diuretic. Her CT chest is pending. Review of Systems Constitutional: Constitutional: Denies daytime sleepiness, Denies excessive sweating, Denies fatigue, Denies fever(s), Denies lethargy, Denies malaise, Denies night sweats, Denies snoring and Denies weight loss Eyes: Eyes: Denies blurry vision and Denies itchy eyes ENT: Denies nasal congestion, Denies post nasal drip, Denies sinus pain, Denies sinus pressure and Denies other ( Thrush) Cardiovascular: Cardiovascular: Denies chest pain, Denies pedal edema, Reports dyspnea, Reports orthopnea and Denies paroxysmal nocturnal dyspnea Respiratory: Respiratory: Denies cough, Denies hemoptysis, Denies excessive phlegm production, Reports dyspnea, Denies snoring and Denies wheezing Gastrointestinal: Gastrointestinal: Denies abdominal pain and Denies heartburn Musculoskeletal: Musculoskeletal: Denies myalgias, Denies arthralgias and Denies joint swelling Integumentary/Breasts: Skin/Breast: Denies rash Neurologic: Denies memory loss and Denies seizure-like activity Psychiatric: Psychiatric: Denies abnormal sleep pattern, Denies anxiety and Denies memory loss Endocrine: Endocrine: Denies excessive sweating, Denies fatigue and Denies heat intolerance Hematologic/Lymphatic: Hematologic/Lymphatic: Denies easy bruising Allergic/Immunologic: Allergic/Immunologic: Denies itchy eyes, Denies seasonal rhinorrhea and Denies wheezing PMFSH Past Medical History Medical History Peripheral artery disease Myasthenia gravis Hypertension Urinary retention AAA (abdominal aortic aneurysm) Moderate to severe aortic valve regurgitation Heart failure with reduced ejection fraction Cigarette smoker Asthma-COPD overlap syndrome Social History Social History Household Members: Friend(s) Housing: Condominium Do you presently have visiting nurse or other home services: No Patient Tobacco Use Status: Former Tobacco user Tobacco use type: Cigarette e-Cigarette/Vaping Use: Never Used Second Hand Smoke Exposure: Yes service: No Meds Allergies Allergy/AdvReac Type Severity Reaction Status Date / Time SARI Inhibitors Allergy Unknown ANGIOEDEMA Verified 08/11/23 14:24 [SARI INHIBITORS] Active Medications: Current Medications Acetaminophen (Acetaminophen 325 Mg Tablet) 650 mg PO Q6H PRN PRN Reason: Pain, Mild, headache, fever Albuterol Sulfate (Albuterol Sulfate 90 Mcg 8 Gm Inhaler) 2 puff INHALE Q4H PRN PRN Reason: wheezing Albuterol/Ipratropium (Albuterol/Iprat 2.5/0.5mg 3 Ml Ampul.Neb) 3 ml INHALE RQ4H WHILE AWAKE PRN PRN Reason: Shortness of Breath/Wheezing Last Admin: 08/13/23 07:50 Dose: 3 ml Amlodipine Besylate (Amlodipine Besylate 10 Mg Tablet) 10 mg PO BID [facility]; Protocol Last Admin: 08/13/23 07:49 Dose: 10 mg Atenolol (Atenolol 25 Mg Tablet) 25 mg PO BID [facility]; Protocol Last Admin: 08/13/23 07:50 Dose: 25 mg Atorvastatin Calcium (Atorvastatin Calcium 80 Mg Tablet) 80 mg PO DAILY [facility] Last Admin: 08/13/23 07:53 Dose: 80 mg Budesonide (Budesonide 0.5 Mg/2 Ml Ampul.Neb) 0.5 mg INHALE RBID [facility] Last Admin: 08/13/23 07:50 Dose: 0.5 mg Enoxaparin Sodium (Enoxaparin Sodium 30 Mg/0.3 Ml Syringe) 30 mg SUBCUT Q24H [facility] Last Admin: 08/12/23 18:20 Dose: 30 mg Furosemide 200 mg/ Sodium (Chloride) 100 mls @ 2.5 mls/hr IVCONT .Q24H [facility] Last Infusion: 08/13/23 08:15 Dose: 0 mg/hr, 0 mls/hr Levofloxacin (Levaquin) 750 mg in 150 mls @ 100 mls/hr IV Q48H [facility] Last Infusion: 08/13/23 12:08 Dose: Infused Losartan Potassium (Losartan Potassium 50 Mg Tablet) 50 mg PO DAILY [facility]; Protocol Last Admin: 08/12/23 10:26 Dose: 50 mg Magnesium Hydroxide (Milk Of Magnesia 30 Ml Oral.Susp) 30 ml PO DAILY PRN PRN Reason: Constipation Methylprednisolone Sodium Succinate (Methylprednisolone Sod Succ 40 Mg/Ml Vial) 60 mg IVPUSH Q6H [facility] Last Admin: 08/13/23 08:17 Dose: 60 mg Mirabegron (Mirabegron 50 Mg Tab.Er.24h) 50 mg PO DAILY [facility] Last Admin: 08/13/23 10:26 Dose: 50 mg Nicotine (Nicotine 7 Mg Patch.Td24) 7 mg TRANSDERMA DAILY [facility] Last Admin: 08/13/23 07:49 Dose: 7 mg Omeprazole (Omeprazole 40 Mg Capsule.Dr) 40 mg PO BID PRN PRN Reason: Heartburn Ondansetron HCl (Ondansetron Hcl 4 Mg/2 Ml Vial) 4 mg IVPUSH Q8H PRN PRN Reason: Nausea and Vomiting Last Admin: 08/12/23 21:38 Dose: 4 mg Oxcarbazepine (Oxcarbazepine 300 Mg Tablet) 600 mg PO BEDTIME [facility] Last Admin: 08/12/23 20:25 Dose: 600 mg Prednisone (Prednisone 1 Mg Tablet) 0.5 mg PO DAILY [facility] Last Admin: 08/13/23 07:50 Dose: 0.5 mg Sodium Chloride (0.9 % Sodium Chloride Flush 3 Ml Syringe) 3 ml IVFLUSH QSHIFT [facility] Last Admin: 08/13/23 10:28 Dose: 3 ml Trazodone HCl (Trazodone Hcl 100 Mg Tablet) 100 mg PO BEDTIME [facility] Home Medications ?Medication ?Instructions ?Recorded ?Confirmed ?Last Taken ?Type albuterol sulfate 90 mcg/actuation 2 puff inhalation Q4H PRN wheezing 08/11/23 08/11/23 Unknown History aerosol inhaler amlodipine 10 mg tablet 10 mg PO BID 08/11/23 08/11/23 Unknown History atenolol 50 mg tablet 25 mg PO BID 08/11/23 08/11/23 Unknown History budesonide 0.5 mg/2 mL suspension 0.5 mg inhalation BID 08/11/23 08/11/23 Unknown History for nebulization desmopressin 0.2 mg tablet 0.2 mg PO DAILY 08/11/23 08/11/23 Unknown History furosemide 20 mg tablet 20 mg PO BEDTIME 08/11/23 08/11/23 Unknown History furosemide 20 mg tablet 40 mg PO QAM 08/11/23 08/11/23 Unknown History ipratropium 0.5 mg-albuterol 3 mg 3 ml inhalation QID 08/11/23 08/11/23 Unknown History (2.5 mg base)/3 mL nebulization soln losartan 50 mg tablet 50 mg PO DAILY 08/11/23 08/11/23 Unknown History mirabegron 50 mg tablet,extended 50 mg PO DAILY 08/11/23 08/11/23 Unknown History release 24 hr omeprazole 40 mg capsule,delayed 40 mg PO BID PRN Heartburn 08/11/23 08/11/23 Unknown History release oxcarbazepine 600 mg tablet 600 mg PO BEDTIME 08/11/23 08/11/23 Unknown History prednisone 1 mg tablet 0.5 mg PO DAILY 08/11/23 08/11/23 Unknown History rosuvastatin 20 mg tablet 20 mg PO DAILY 08/11/23 08/11/23 Unknown History terazosin 10 mg capsule 20 mg PO BEDTIME 08/11/23 08/12/23 Unknown History trazodone 100 mg tablet 100 mg PO DAILY 08/11/23 08/11/23 Unknown History Physical Exam Vital Signs: Vital Signs: Last Vital Signs Temp 97.0 F 08/13/23 07:16 Pulse 69 08/13/23 07:51 Resp 18 08/13/23 11:35 BP 122/58 L 08/13/23 07:50 Pulse Ox 98 08/13/23 07:16 O2 Del Method High Flow Nasal C annula 08/13/23 07:16 O2 Flow Rate 38 08/13/23 07:16 FiO2 70 08/13/23 07:16 Oxygen Flow Rate 15 08/11/23 14:23 BMI result Body Mass Index 21.8 Const: General: no acute distress and alert Nutritional Appearance: not obese Orientation/consciousness: Other orientation findings ( oriented) HEENT: Head: Yes atraumatic Eyes: General: appearance normal, both eyes and all related structures Sclerae: sclerae normal EOM: EOMs intact bilaterally Neck: Neck: Yes supple Lymphatic: no lymphadenopathy noted Resp: Effort & Inspection: normal respiratory effort and no use of accessory muscles Auscultation: clear to auscultation bilaterally Cardio: Rate: regular rate Rhythm: regular rhythm Heart sounds: no gallops, no murmurs and no rubs Skin: General skin exam: other ( warm) Extrem: General: No clubbing, No cyanosis and No edema Results Laboratory Findings 08/12/23 04:57 08/13/23 05:50 ABG, PT/INR, D-dimer: PT/INR, D-dimer PT 13.4 SEC (11.1-13.3) H 08/11/23 14:46 INR 1.1 (0.9-1.1) 08/11/23 14:46 Abnormal lab findings: Abnormal Labs 08/11/23 08/11/23 08/11/23 14:46 15:04 17:27 WBC 11.7 H RBC 4.06 L Hgb 9.0 L Hct 31.4 L MCV 77.3 L MCH 22.2 L MCHC 28.7 L RDW 17.1 H Immature Gran % (Auto) 0.6 H Neut % (Auto) 80.2 H Lymph % (Auto) 9.1 L Lymph # (Auto) 1.1 L Abs Immat Gran (auto) 0.07 H Absolute Neuts (auto) 9.4 H PT 13.4 H ABG pH at Pt Temp ABG pO2 at Pt Temp ABG HCO3 VBG HCO3 28 H BUN 23 H Creatinine Random Glucose 200 H Lactic Acid 2.2 H* Troponin I High Sens 40.6 H 42.2 H C-Reactive Protein 0.86 H B-Natriuretic Peptide 3159 H Ur Leukocyte Esterase Small (1+) H 08/12/23 08/12/23 08/13/23 04:57 12:11 05:50 WBC RBC 3.58 L Hgb 7.9 L Hct 27.3 L MCV 76.3 L MCH 22.1 L MCHC 28.9 L RDW 17.0 H Immature Gran % (Auto) Neut % (Auto) 88.5 H Lymph % (Auto) 5.3 L Lymph # (Auto) 0.3 L Abs Immat Gran (auto) Absolute Neuts (auto) PT ABG pH at Pt Temp 7.46 H ABG pO2 at Pt Temp 54 L ABG HCO3 28 H VBG HCO3 BUN 27 H 46 H Creatinine 1.70 H Random Glucose 125 H 143 H Lactic Acid Troponin I High Sens C-Reactive Protein B-Natriuretic Peptide 4460 H 4205 H Ur Leukocyte Esterase Microbiology: Microbiology 08/11/23 17:27 Urine clean catch - Urine masters top Urine Culture - Final 08/11/23 14:46 Blood - Venous Blood Culture - Preliminary No growth after 24 hours. 08/11/23 14:46 Blood - Venous Blood Culture - Preliminary No growth after 24 hours. Assessment and Plan (1) Acute on chronic hypoxic respiratory failure: Status: Acute (2) Acute on chronic systolic congestive heart failure, NYHA class 3: Status: Acute (3) Pulmonary hypertension: Status: Acute Plan Impression: 83-year-old lady with underlying systolic congestive heart failure with valvular disease admitted with acute on chronic hypoxic respiratory failure secondary to exacerbation of underlying congestive heart failure. At this time, patient does not appear to have exacerbation of underlying COPD or significant pneumonia. Recommendations: Agree with judicious diuresis. Does not requiring nebulized budesonide 0 systemic Solu-Medrol. Does not appear to have community-acquired pneumonia, thus would consider monitoring off Levaquin. Check D-dimer. Procedures Date of Service Date of Service: 08/13/23
[2023-08-13 13:55] LABS: SARS-CoV-2 PCR Not Detected (Not Detect.)
[2023-08-13] MEDS: LORazepam 1 MG TABLET PO (16:19)
[2023-08-13] MEDS: Enoxaparin Sodium 30 MG/0.3 ML SYRINGE SUBCUT (17:09)
[2023-08-13] MEDS: OXcarbazepine 300 MG TABLET 600 MG PO (19:46)
[2023-08-13] MEDS: traZODone HCL 100 MG TABLET PO (19:47)
[2023-08-14] VITALS (13 sets, daily range): BP systolic 102–124; BP diastolic 45–62; PULSE 60–67; RESP 17–26; TEMP 36.4–36.5; O2SAT 84–97
[2023-08-14] MEDS: methylPREDNISolone Sod Succ 40 MG/ML VIAL 60 MG IVPUSH ×2 (02:00→09:50)
[2023-08-14] MEDS: Furosemide 20 MG/2 ML VIAL IVPUSH (04:20)
--- NOTE | 2023-08-14 05:47 | PC.NURSE ---
Pt observed newly desatting to 84-85% with good pleth. HFNC settings observed fluctuating 60-65% Fio2, consistent with earlier settings in evening. Respiratory notified and to bedside, increased Fio2 to 75%. Crackles RT greater than LT heard in bases. Pt denies sob and was shouting let me sleep at staff when attempting to explain care and assessments. Covering Dr. Darvin Nance notified, 20mg IVP lasix ordered and given. 250ml UOP via grubbs this morning, spo2 improved to 99% on Fio2 75%; respiratory notified and weaned patient to 65% which patient is tolerating at this time. Patient attempted to refuse labs this morning for profiler. Mine Car Repairer to bedside and importance explained. After this, patient agreeable.
[2023-08-14 07:10] LABS: D Dimer High Sensitivity 307 NG/ML
[2023-08-14 07:10] LABS: Hemoglobin 8.5 g/dl (12.0-16.0); Mean Corpuscular HGB Conc 29.3 g/dl (31.0-35.0); Mean Corpuscular Hemoglobin 21.9 pg (27.0-33.0); Mean Corpuscular Volume 74.7 fL (80.0-98.0); Mean Platelet Volume 11.6 fL (9.4-12.3); Platelet Count 233 X10*3/uL (160-400); Red Blood Count 3.88 X10*6/uL (4.20-5.50); Red Cell Distribution Width 17.3 % (11.0-16.0); White Blood Count 5.4 X10*3/uL (4.8-10.8)
[2023-08-14] MEDS: Budesonide 0.5 MG/2 ML AMPUL.NEB INHALE (07:20)
[2023-08-14 07:23] LABS: Anion Gap 13 (12-20); Blood Urea Nitrogen 57 mg/dL (9-16); Calcium 8.8 mg/dL (8.4-10.2); Carbon Dioxide 27 mmol/L (22-29); Chloride 100 mmol/L (96-108); Creatinine Clr Calc Pharmacy 19.2; Estimated Glomerular Filt Rate 28; Glucose Random 164 mg/dL (60-115); Magnesium 2.4 mg/dL (1.6-2.6); Potassium 4.4 mmol/L (3.3-5.1); Sodium 136 mmol/L (135-145)
[2023-08-14 07:48] LABS: B Type Natriuretic Peptide 6349 pg/mL (<100)
[2023-08-14] MEDS: Furosemide 40 MG/4 ML VIAL IVPUSH (08:40)
--- NOTE | 2023-08-14 09:00 | P.PNCA_ITS ---
Subjective Subjective Date of Service: 08/14/23 Interval history: Seen and examined. Patient states she still feeling short of breath. BNP is going up. Kidney function is also going up. Review of Systems Review of Systems Yes all other systems are reviewed and are negative Constitutional: Reports as per HPI and Reports no additional constitutional complaints Eyes: Reports as per HPI and Denies no additional eye complaints Denies system reviewed and no additional complaints, except as documented and Reports as per HPI Cardiovascular: Reports as per HPI, Reports no additional cardiovascular complaints, Denies acrocyanosis, Denies cool extremities, Denies chest pain, Denies leg edema, Denies lightheadedness, Denies palpitations and Reports dyspnea Respiratory: Reports as per HPI, Denies no additional respiratory complaints and Reports dyspnea Gastrointestinal: Reports as per HPI and Denies no additional gastrointestinal complaints Genitourinary: Reports as per HPI Musculoskeletal: Reports no additional musculoskeletal complaints and Reports as per HPI Skin/Breast: Reports system reviewed and no additional complaints, except as docu Reports system reviewed and no additional complaints, except as documented and Reports as per HPI Psychiatric: Reports no additional psychiatric complaints and Reports as per HPI Endocrine: Reports no additional endocrine complaints, Reports as per HPI and Denies palpitations Hematologic/Lymphatic: Reports no additional hematologic/lymphatic complaints and Reports as per HPI Allergic/Immunologic: Reports no additional allergic/immunologic complaints and Reports as per HPI Physical Exam Vital Signs: Last Vital Signs Temp 97.7 F 08/14/23 08:00 Pulse 64 08/14/23 08:00 Resp 20 08/14/23 08:00 BP 124/62 08/14/23 08:40 Pulse Ox 97 08/14/23 08:00 O2 Del Method High Flow Nasal Cannula, Humidified O2 08/14/23 08:00 O2 Flow Rate 40 08/14/23 08:00 FiO2 70 08/14/23 08:00 Oxygen Flow Rate 15 08/11/23 14:23 BMI result Body Mass Index 21.8 Const General: in distress, ill appearing and tired appearing Orientation/consciousness: patient oriented x3 HEENT Other: Unremarkable Head: Yes normal to inspection Neck Neck: Yes normal visual inspection Chest Chest palpation & inspection: normal inspection of the chest Resp Other: Scattered rhonchi Auscultation: diminished lung sounds Cardio Palpation: normal PMI Heart sounds: S1 normal heart sound present, S2 normal heart sound present, no gallops, no murmurs and no rubs GI Palpation (GI): Soft to palpation Back/Spine/Pelvis Other: unremarkable Skin General skin exam: no rashes or lesions noted Neuro General: patient oriented x3 Extrem General: Yes normal to inspection Psych Mental Status: mental status grossly normal Objective Labs and Meds 08/14/23 06:03 08/14/23 06:02 Lab results: Laboratory Results - last 24 hr 08/13/23 08/13/23 08/14/23 05:50 10:18 06:02 WBC RBC Hgb Hct MCV MCH MCHC RDW Plt Count MPV Absolute Nucleated RBC Nucleated RBC % (auto) D-Dimer High Sensitivty 307 Sodium 136 Potassium 4.4 Chloride 100 Carbon Dioxide 27 Anion Gap 13 BUN 57 H Creatinine 1.72 H Estim Creat Clear Calc 19.2 Estimated GFR 28 Random Glucose 164 H Calcium 8.8 Magnesium 2.4 B-Natriuretic Peptide Procalcitonin 1.00 Respiratory Panel Zamorano See Note Adenovirus (Rapid PCR) Not Detected B.pert (TEM-PCR) Not Detected B.parapertussis DNA PCR Not Detected C. pneumoniae DNA (PCR) Not Detected Coronavirus OC43 (PCR) Not Detected Coronavirus HKU1 (PCR) Not Detected Coronavirus 229E (PCR) Not Detected Coronavirus NL63 (PCR) Not Detected Human Metapneumovir PCR Not Detected Influenza A (RT-PCR) Not Detected Influenza B (RT-PCR) Not Detected M. pneumoniae (PCR) Not Detected Parainfluenza 1 (PCR) Not Detected Parainfluenza 2 (PCR) Not Detected Parainfluenza 3 (PCR) Not Detected Parainfluenza 4 (PCR) Not Detected RSV (PCR) Not Detected Entero/Rhino (PCR) Not Detected SARS-CoV-2 RNA (RT-PCR) Not Detected Blood Type A Positive Antibody Screen NEGATIVE 08/14/23 06:03 WBC 5.4 RBC 3.88 L Hgb 8.5 L Hct 29.0 L MCV 74.7 L MCH 21.9 L MCHC 29.3 L RDW 17.3 H Plt Count 233 D MPV 11.6 Absolute Nucleated RBC 0.000 Nucleated RBC % (auto) 0.0 D-Dimer High Sensitivty Sodium Potassium Chloride Carbon Dioxide Anion Gap BUN Creatinine Estim Creat Clear Calc Estimated GFR Random Glucose Calcium Magnesium B-Natriuretic Peptide 6349 H Procalcitonin Respiratory Panel Zamorano Adenovirus (Rapid PCR) B.pert (TEM-PCR) B.parapertussis DNA PCR C. pneumoniae DNA (PCR) Coronavirus OC43 (PCR) Coronavirus HKU1 (PCR) Coronavirus 229E (PCR) Coronavirus NL63 (PCR) Human Metapneumovir PCR Influenza A (RT-PCR) Influenza B (RT-PCR) M. pneumoniae (PCR) Parainfluenza 1 (PCR) Parainfluenza 2 (PCR) Parainfluenza 3 (PCR) Parainfluenza 4 (PCR) RSV (PCR) Entero/Rhino (PCR) SARS-CoV-2 RNA (RT-PCR) Blood Type Antibody Screen Imaging Radiologist's impression: Impressions Chest CT 08/13/23 09:30 IMPRESSION: Enlarged heart and severe coronary artery and aortic valve calcification. Small pericardial effusion. Probable anemia. Emphysema. Ground-glass attenuation and increased interstitial markings in the lungs, right greater than left, question of representing asymmetric distribution of pulmonary edema. Bilateral pleural effusions, right greater than left. 5 mm left lower lobe nodule. According to the UPDATED 2017 Fleischner Society recommendations, the advised followup imaging for less than 6 mm solid nodule: Low-risk no chest CT follow up, and high-risk, optional chest CT follow up in 1 year. Pulmonary Perfusion Imaging 08/13/23 09:30 IMPRESSION: Based on perfusion only modified PIOPED 2 criteria, pulmonary thromboembolism is absent. Chest X-Ray 08/14/23 06:10 IMPRESSION: Cardiomegaly, pulmonary opacities (likely edema) and small pleural effusions. Interval worsening patchy airspace opacity in the perihilar region of the right lung compared to 08/11/2023. Progress Note: A&P Assessment and plan (1) Acute on chronic systolic congestive heart failure, NYHA class 3: Status: Acute (2) Nonrheumatic aortic valve regurgitation: Status: Acute (3) Nonrheumatic mitral valve regurgitation: Status: Acute (4) Pulmonary hypertension: Status: Acute Plan Per recent echocardiogram at [facility], LV moderately dilated; LVEF 30-35%; calcified aortic valve with moderate regurgitation; mild stenosis; severe mitral annular calcification with moderate to severe mitral regurgitation; moderate tricuspid regurgitation; RVSP of 65-70mmHg. Dilated IVC with blunted inspiratory collapse. Small circumferential pericardial effusion. Chest x-ray with some interstitial markings, alveolar disease. Suspected to be some combination of bronchiectasis/interstitial lung disease/CHF. Overall, cardiomyopathy, significant valvular disease including mitral and aortic regurgitation, COPD on supplemental oxygen, recurrent hospitalizations with shortness of breath. Suspect some combination of the above. She did receive diuretics but it seems that kidney function is going up. Cardiac BNP is also going up. Discussed with , her stock taker. Decided on [facility] transfer for further care. However, it is felt that transcatheter interventions will probably be high risk for her. Time Spent With Patient Time: Total time managing care of this patient today ____ minutes. Progress Note: Quality Stroke Does the patient have a stroke diagnosis?: No Procedures Date of Service Date of Service: 08/14/23
[2023-08-14] MEDS: Atorvastatin Calcium 80 MG TABLET PO (09:48)
[2023-08-14] MEDS: amLODIPine Besylate 10 MG TABLET PO (09:48)
[2023-08-14] MEDS: Nicotine 7 MG PATCH.TD24 TRANSDERMA (09:51)
[2023-08-14] MEDS: 0.9 % Sodium Chloride Flush 3 ML SYRINGE IVFLUSH (09:51)
[2023-08-14] MEDS: atenoloL 25 MG TABLET PO (09:54)
--- NOTE | 2023-08-14 10:27 | PM.DS ---
DS: Providers Provider Date of Service: 08/14/23 Date of admission: 08/11/23 18:26 Date of discharge: 08/14/23 Primary care physician: Layne Ford MD Consults: 08/12/23 08:06 Consult to Cardiology Routine Consulting Provider: [facility] Reason for consultation: HFrEF 08/13/23 07:48 Consult to Pulmonology Routine Consulting Provider: [facility] Pulmonology Services Reason for consultation: CHF/COPD, hypoxia RF on HFNC DS: Diagnosis Discharge Diagnosis (1) Acute on chronic systolic congestive heart failure, NYHA class 3: Status: Acute (2) Nonrheumatic aortic valve regurgitation: Status: Acute (3) Nonrheumatic mitral valve regurgitation: Status: Acute (4) Pulmonary hypertension: Status: Acute (5) Acute on chronic hypoxic respiratory failure: Status: Acute (6) Acute exacerbation of chronic obstructive pulmonary disease: Status: Acute (7) Bronchiectasis: Status: Acute (8) Acute kidney injury: Status: Acute DS: Summary Hospital Course Hospital Course: From the history and physical by the admitting hospitalist, TOÑITO Dale, 08/11/23: 83-year-old female with history of AAA, coronary artery disease, heart failure reduced ejection fraction with EF 30-35%, moderate to severe aortic valve regurgitation, hypertension, hyperlipidemia, history of myasthenia gravis, peripheral artery disease, asthma/copd, chronic hypoxemic respiratory failure, urinary retention requiring self straight catheterization, and CKD stage 3 presented to the ED earlier today for evaluation of dyspnea. The patient has had multiple admissions to [facility] with most recent discharge on 07/22 for CHF exacerbation. She follows with Dr. Sanders in Cardiology and reports compliance with her 2 L supplemental O2 at rest and 3 L with ambulation as well as 40 mg of Lasix in the morning and 20 mg of Lasix in the evening. She states that she was feeling well following her discharge but around 3 days ago began developing shortness of breath again both at rest and with exertion that worsened significantly last night. She is also endorsing significant orthopnea and bilateral lower extremity edema. Does not weigh herself on a daily basis but does not feel she is gained weight. She denies any recent illness. No fevers, chills, abdominal pain, nausea, vomiting, diarrhea, dysuria, cough, wheezing, lightheadedness, chest pain. Since arrival, was tachypneic with significant improvement following IV diuresis. She was also initially on a non-rebreather but has been weaned to OxyMask now maintaining oximetry 95%. She is afebrile. There is a mild leukocytosis of 11.7. She is stable, chronic microcytic anemia. Renal function baseline, electrolyte levels normal. Initial lactic acid 2.2, repeat 1.1. Initial troponin 40.6, repeat 42.2 BNP 3159. Procalcitonin 0.04. Urinalysis unremarkable. Negative for COVID-19, RSV, flu. Ethyl alcohol level undetectable. Chest x-ray shows increased interstitial markings and some alveolar disease likely combination of bronchiectasis, interstitial lung disease plus-minus CHF. EKG shows sinus rhythm with PSVT complexes and occasional PVCs with nonspecific T-wave abnormality but no ST or depressions. In the ED, has received multiple DuoNebs, 80 mg Lasix, ceftriaxone, azithromycin, 80 mg methylprednisolone and ondansetron. 83yo F with CAD, HFrEF with recent 30-35%, sev mitral + mod aortic regurgitation, pHTN, chronic hypoxic RF on 2-4L O2 at home, HTN, HLD, hx MG on 0.5 mg/d prednisone, PAD, asthma/COPD, urinary retention dependent on self-catheterization, and CKD3. She was recently admitted to [facility] in July 2023 for CHF exacerbation. This time, she presented with 3d of exertional dyspnea, orthopnea, and leg swelling and was admitted to the telemetry unit with Cardiology and Pulmonology consultations for acute/chronic hypoxia due to CHF + COPD/bronchiectasis exacerbations. Hospital course by problem: acute/chronic HFrEF - Diuresed with furosemide IV drip, but this was then held due to elevated BUN/Cr. However, this may be due to cardiorenal syndrome. Net fluid balance about -950 mL cumulatively. But due to BNP and hypoxia worsening, furosemide was resumed, as IV pushes. Difficult to manage due to valvular regurgitation as noted as above. Cardiology was consulted and arranged transfer to [facility] where her primary wood experimental mechanic, Danial Sanders, practices. acute COPD/bronchiectatsis exacerbation - Blood cultures negative. Respiratory pathogen PCR panel negative. CT scan with extensive emphysema, ground-glass infiltrates, R>L interstitial infiltates, and R>L pleural effusions. Treated with IV methylprednisolone. Procalcitonin 1.00 and started levofloxacin on 08/13/23. acute/chronic hypoxic respiratory failure - Briefly on CPAP then transitioned to HFNC. No CO2 retention. At the time of transfer to [facility], she was saturating 92% on 90% fiO2 @ 40 Lpm. V/Q negative for acute PE. JUAN MIGUEL/CKD3 - Could be cardiorenal syndrome. Continue to monitor carefully with diuresis. Losartan on hold Time Attestation Discharge Coordination Time (in mins): 55 Quality: Safe Use of Opioids Does Pt have an Active Cancer Diagnosis on the Problem List?: No Quality: Stroke Does the patient have a stroke diagnosis?: No Physical Exam Vital Signs: Vital Signs: Last Vital Signs Temp 97.7 F 08/14/23 08:00 Pulse 67 08/14/23 09:54 Resp 20 08/14/23 08:00 BP 115/45 L 08/14/23 09:54 Pulse Ox 97 08/14/23 08:00 O2 Del Method High Flow Nasal C annula, Humidified O2 08/14/23 08:00 O2 Flow Rate 40 08/14/23 08:00 FiO2 70 08/14/23 08:00 Oxygen Flow Rate 15 08/11/23 14:23 BMI result Body Mass Index 21.8 Gen: no respiratory distress HEENT: sclera anicteric, moist mucus membranes Neck: supple Lungs: diminished, bilateral fine inspiratory crackles, scattered rhonchi Heart: regular rate and rhythm, no murmurs Abd: soft, non-tender, non-distended Ext: no edema Skin: warm/well-perfused Neuro: alert and oriented x3, no focal findings Psych: appropriate affect DS: Data Data Completed and Pending Completed studies during hospitalization [Text1]: ITS Impressions Chest X-Ray 08/11/23 15:10 IMPRESSION: Abnormal chest radiograph with increased interstitial markings and some alveolar disease. Findings could be secondary to combination of bronchiectasis/interstitial lung disease plus/minus CHF. Infectious etiologies cannot be entirely excluded. Chest CT 08/13/23 09:30 IMPRESSION: Enlarged heart and severe coronary artery and aortic valve calcification. Small pericardial effusion. Probable anemia. Emphysema. Ground-glass attenuation and increased interstitial markings in the lungs, right greater than left, question of representing asymmetric distribution of pulmonary edema. Bilateral pleural effusions, right greater than left. 5 mm left lower lobe nodule. According to the UPDATED 2017 Fleischner Society recommendations, the advised followup imaging for less than 6 mm solid nodule: Low-risk no chest CT follow up, and high-risk, optional chest CT follow up in 1 year. Pulmonary Perfusion Imaging 08/13/23 09:30 IMPRESSION: Based on perfusion only modified PIOPED 2 criteria, pulmonary thromboembolism is absent. Chest X-Ray 08/14/23 06:10 IMPRESSION: Cardiomegaly, pulmonary opacities (likely edema) and small pleural effusions. Interval worsening patchy airspace opacity in the perihilar region of the right lung compared to 08/11/2023. Laboratory Tests 08/11/23 08/11/23 08/11/23 14:46 15:04 17:27 WBC 11.7 H RBC 4.06 L Hgb 9.0 L Hct 31.4 L MCV 77.3 L MCH 22.2 L MCHC 28.7 L RDW 17.1 H Plt Count 251 D MPV 11.6 Immature Gran % (Auto) 0.6 H Neut % (Auto) 80.2 H Lymph % (Auto) 9.1 L [place] % (Auto) 7.3 Eos % (Auto) 2.1 Baso % (Auto) 0.7 Lymph # (Auto) 1.1 L [place] # (Auto) 0.9 Eos # (Auto) 0.3 Baso # (Auto) 0.1 Abs Immat Gran (auto) 0.07 H Absolute Neuts (auto) 9.4 H Absolute Nucleated RBC 0.000 Nucleated RBC % (auto) 0.0 PT 13.4 H INR 1.1 D-Dimer High Sensitivty O2 Saturation ABG pH at Pt Temp ABG pCO2 at Pt Temp ABG pO2 at Pt Temp ABG HCO3 ABG Base Excess (Actual) VBG pH 7.38 VBG pCO2 47 VBG pO2 140 VBG HCO3 28 H VBG O2 Saturation 99.0 VBG Base Excess 2.9 Sodium 140 Potassium 4.8 Chloride 104 Carbon Dioxide 24 Anion Gap 17 BUN 23 H Creatinine 1.29 Estim Creat Clear Calc 25.7 Estimated GFR 39 Random Glucose 200 H Lactic Acid 2.2 H* Lactic Acid F/U @ 2Hr 1.1 Calcium 9.2 Magnesium 2.2 Iron 48 TIBC 312 % Saturation 15 Unsat Iron Binding 264 Ferritin 19 Total Bilirubin 0.4 Direct Bilirubin 0.1 AST 18 ALT 7 Alkaline Phosphatase 61 Troponin I High Sens 40.6 H 42.2 H C-Reactive Protein 0.86 H B-Natriuretic Peptide 3159 H Total Protein 7.0 Albumin 3.7 Procalcitonin 0.04 Urine Color Yellow Urine Appearance Clear Urine pH 5.5 Ur Specific [place] 1.010 Urine Protein Negative Urine Glucose (UA) Negative Urine Ketones Negative Urine Blood Negative Urine Nitrite Negative Ur Leukocyte Esterase Small (1+) H Urine RBC 0-2 Urine WBC 6-10 Ur Squamous Epith Cells 0-2 Urine Bacteria None Seen Hyaline Casts 3-5 Ethyl Alcohol < 10 Respiratory Panel Zamorano Adenovirus (Rapid PCR) B.pert (TEM-PCR) B.parapertussis DNA PCR C. pneumoniae DNA (PCR) Coronavirus OC43 (PCR) Coronavirus HKU1 (PCR) Coronavirus 229E (PCR) Coronavirus NL63 (PCR) Human Metapneumovir PCR Influenza A (RT-PCR) Influenza Type A (PCR) NEGATIVE Influenza B (RT-PCR) Influenza Type B (PCR) NEGATIVE M. pneumoniae (PCR) Parainfluenza 1 (PCR) Parainfluenza 2 (PCR) Parainfluenza 3 (PCR) Parainfluenza 4 (PCR) RSV (PCR) RSV RNA Qual (PCR) NEGATIVE Entero/Rhino (PCR) SARS-CoV-2 RNA (RT-PCR) NEGATIVE Blood Type Antibody Screen 08/12/23 08/12/23 08/13/23 04:57 12:11 05:50 WBC 5.8 RBC 3.58 L Hgb 7.9 L Hct 27.3 L MCV 76.3 L MCH 22.1 L MCHC 28.9 L RDW 17.0 H Plt Count 165 D MPV 10.7 Immature Gran % (Auto) 0.3 Neut % (Auto) 88.5 H Lymph % (Auto) 5.3 L [place] % (Auto) 5.7 Eos % (Auto) 0.0 Baso % (Auto) 0.2 Lymph # (Auto) 0.3 L [place] # (Auto) 0.3 Eos # (Auto) 0.0 Baso # (Auto) 0.0 Abs Immat Gran (auto) 0.02 Absolute Neuts (auto) 5.2 Absolute Nucleated RBC 0.000 Nucleated RBC % (auto) 0.0 PT INR D-Dimer High Sensitivty O2 Saturation 84.0 ABG pH at Pt Temp 7.46 H ABG pCO2 at Pt Temp 39 ABG pO2 at Pt Temp 54 L ABG HCO3 28 H ABG Base Excess (Actual) 4.6 VBG pH VBG pCO2 VBG pO2 VBG HCO3 VBG O2 Saturation VBG Base Excess Sodium 141 138 Potassium 4.0 3.9 Chloride 104 103 Carbon Dioxide 25 24 Anion Gap 16 15 BUN 27 H 46 H Creatinine 1.27 1.70 H Estim Creat Clear Calc 26.0 19.5 Estimated GFR 40 29 Random Glucose 125 H 143 H Lactic Acid Lactic Acid F/U @ 2Hr Calcium 8.9 8.6 Magnesium 2.2 Iron TIBC % Saturation Unsat Iron Binding Ferritin Total Bilirubin Direct Bilirubin AST ALT Alkaline Phosphatase Troponin I High Sens C-Reactive Protein B-Natriuretic Peptide 4460 H 4205 H Total Protein Albumin Procalcitonin 1.00 Urine Color Urine Appearance Urine pH Ur Specific [place] Urine Protein Urine Glucose (UA) Urine Ketones Urine Blood Urine Nitrite Ur Leukocyte Esterase Urine RBC Urine WBC Ur Squamous Epith Cells Urine Bacteria Hyaline Casts Ethyl Alcohol Respiratory Panel Zamorano Adenovirus (Rapid PCR) B.pert (TEM-PCR) B.parapertussis DNA PCR C. pneumoniae DNA (PCR) Coronavirus OC43 (PCR) Coronavirus HKU1 (PCR) Coronavirus 229E (PCR) Coronavirus NL63 (PCR) Human Metapneumovir PCR Influenza A (RT-PCR) Influenza Type A (PCR) Influenza B (RT-PCR) Influenza Type B (PCR) M. pneumoniae (PCR) Parainfluenza 1 (PCR) Parainfluenza 2 (PCR) Parainfluenza 3 (PCR) Parainfluenza 4 (PCR) RSV (PCR) RSV RNA Qual (PCR) Entero/Rhino (PCR) SARS-CoV-2 RNA (RT-PCR) Blood Type Antibody Screen 08/13/23 08/14/23 08/14/23 10:18 06:02 06:03 WBC 5.4 RBC 3.88 L Hgb 8.5 L Hct 29.0 L MCV 74.7 L MCH 21.9 L MCHC 29.3 L RDW 17.3 H Plt Count 233 D MPV 11.6 Immature Gran % (Auto) Neut % (Auto) Lymph % (Auto) [place] % (Auto) Eos % (Auto) Baso % (Auto) Lymph # (Auto) [place] # (Auto) Eos # (Auto) Baso # (Auto) Abs Immat Gran (auto) Absolute Neuts (auto) Absolute Nucleated RBC 0.000 Nucleated RBC % (auto) 0.0 PT INR D-Dimer High Sensitivty 307 O2 Saturation ABG pH at Pt Temp ABG pCO2 at Pt Temp ABG pO2 at Pt Temp ABG HCO3 ABG Base Excess (Actual) VBG pH VBG pCO2 VBG pO2 VBG HCO3 VBG O2 Saturation VBG Base Excess Sodium 136 Potassium 4.4 Chloride 100 Carbon Dioxide 27 Anion Gap 13 BUN 57 H Creatinine 1.72 H Estim Creat Clear Calc 19.2 Estimated GFR 28 Random Glucose 164 H Lactic Acid Lactic Acid F/U @ 2Hr Calcium 8.8 Magnesium 2.4 Iron TIBC % Saturation Unsat Iron Binding Ferritin Total Bilirubin Direct Bilirubin AST ALT Alkaline Phosphatase Troponin I High Sens C-Reactive Protein B-Natriuretic Peptide 6349 H Total Protein Albumin Procalcitonin Urine Color Urine Appearance Urine pH Ur Specific [place] Urine Protein Urine Glucose (UA) Urine Ketones Urine Blood Urine Nitrite Ur Leukocyte Esterase Urine RBC Urine WBC Ur Squamous Epith Cells Urine Bacteria Hyaline Casts Ethyl Alcohol Respiratory Panel Zamorano See Note Adenovirus (Rapid PCR) Not Detected B.pert (TEM-PCR) Not Detected B.parapertussis DNA PCR Not Detected C. pneumoniae DNA (PCR) Not Detected Coronavirus OC43 (PCR) Not Detected Coronavirus HKU1 (PCR) Not Detected Coronavirus 229E (PCR) Not Detected Coronavirus NL63 (PCR) Not Detected Human Metapneumovir PCR Not Detected Influenza A (RT-PCR) Not Detected Influenza Type A (PCR) Influenza B (RT-PCR) Not Detected Influenza Type B (PCR) M. pneumoniae (PCR) Not Detected Parainfluenza 1 (PCR) Not Detected Parainfluenza 2 (PCR) Not Detected Parainfluenza 3 (PCR) Not Detected Parainfluenza 4 (PCR) Not Detected RSV (PCR) Not Detected RSV RNA Qual (PCR) Entero/Rhino (PCR) Not Detected SARS-CoV-2 RNA (RT-PCR) Not Detected Blood Type A Positive Antibody Screen NEGATIVE Discharge Plan Discharge Anticipated Discharge Date/Time: 08/14/23 10:20 Patient Disposition: Xfer Acute Care Hospital Discharge Diagnosis: CHF exacerbation COPD exerbation bronchiectasis acute hypoxic respiratory failure acute renal failure Referrals: [facility] [Outside] - 1 Week Layne Ford MD [Primary Care Provider] - 1 Week Discharge Medications: New furosemide 10 mg/mL Solution 40 mg IVPUSH BID@0900,1800 Qty: 1 0RF Protocol: Hold for SBP< HOLD for SBP < : 90 ipratropium-albuterol 0.5 mg-3 mg(2.5 mg base)/3 mL Solution For Nebulization 3 ml inhalation RQ4H WHILE AWAKE PRN (Reason: Shortness Of Breath/Wheezing) Qty: 1 0RF nicotine 7 mg/24 hr Patch 24 Hour 7 mg transdermal DAILY Qty: 1 0RF enoxaparin 30 mg/0.3 mL Syringe 30 mg subcut Q24H Qty: 1 0RF levofloxacin in D5W 750 mg/150 mL Piggyback 750 mg IV Q48H Qty: 1 0RF Solu-Medrol (PF) 40 mg/mL Recon Soln 60 mg IVPUSH Q6H Qty: 1 0RF Continued ipratropium-albuterol 0.5 mg-3 mg(2.5 mg base)/3 mL solution for nebulization 3 ml inhalation QID omeprazole 40 mg capsule,delayed release(DR/EC) 40 mg PO BID PRN (Reason: Heartburn) trazodone 100 mg tablet 100 mg PO DAILY amlodipine 10 mg tablet 10 mg PO BID oxcarbazepine 600 mg tablet 600 mg PO BEDTIME albuterol sulfate 90 mcg/actuation HFA aerosol inhaler 2 puff inhalation Q4H PRN (Reason: wheezing) terazosin 10 mg capsule 20 mg PO BEDTIME atenolol 50 mg tablet 25 mg PO BID Rx Instructions: patient says she cuts these in half rosuvastatin 20 mg tablet 20 mg PO DAILY mirabegron 50 mg tablet extended release 24 hr 50 mg PO DAILY lorazepam [Ativan] 1 mg Tablet 1 mg PO DAILY PRN (Reason: Anxiety) Held losartan 50 mg tablet 50 mg PO DAILY Hold Instructions: Resume on 09/02/23. prednisone 1 mg tablet 0.5 mg PO DAILY Hold Instructions: Resume on 09/02/23. Rx Instructions: per patient, 0.5mg daily for 2 weeks (currently on first week), then 0.5mg QOD for 2 weeks, then stop budesonide 0.5 mg/2 mL suspension for nebulization 0.5 mg inhalation BID Hold Instructions: Resume on 09/02/23. furosemide 20 mg tablet 20 mg PO BEDTIME Hold Instructions: Resume on 09/02/23. furosemide 20 mg tablet 40 mg PO QAM Hold Instructions: Resume on 09/02/23. Discontinued desmopressin 0.2 mg tablet 0.2 mg PO DAILY Discharge Orders: Discharge Order (Routine); Ordered 08/14/23 Ordered By: Jorge Luis Carcamo Diet: Advance to usual diet Activity on Discharge: As tolerated Stand Alone Forms: Patient Portal Discharge page Print Language: Danish Care Plan Goals: cardiac and respiratory health Health Concerns: CHF exacerbation COPD exerbation bronchiectasis acute hypoxic respiratory failure acute renal failure Plan of Treatment: transfer to [facility] for continued care Assessment: See Discharge Summary.
--- NOTE | 2023-08-14 10:29 | MHC.CM.PN ---
Per ROUNDS discussion, Patient will be transferred to [facility] today.
[2023-08-14] MEDS: Mirabegron 50 MG TAB.ER.24H PO (11:02)
== END 2023-08-14 13:28 | disposition short-term general hospital (02) | DRG 291 ==
LOC: HO.ED 18:04 → HO.EDOVER 18:42 → HO.IMC 08-12 07:34
PROVIDERS: Internal Medicine; Admitting Provider Physician Assistant; Emergency Provider Emergency Medicine; PCP Family Medicine; Visit Provider Family Medicine
DX: I13.0 Hypertensive heart and chronic kidney disease with heart failure and stage 1 through stage 4 chronic kidney disease, or unspecified chronic kidney disease (principal); I50.23 Acute on chronic systolic (congestive) heart failure; J96.21 Acute and chronic respiratory failure with hypoxia; G61.81 Chronic inflammatory demyelinating polyneuritis; J47.1 Bronchiectasis with (acute) exacerbation; N17.9 Acute kidney failure, unspecified; I25.10 Atherosclerotic heart disease of native coronary artery without angina pectoris; I27.20 Pulmonary hypertension, unspecified; J43.9 Emphysema, unspecified; I42.9 Cardiomyopathy, unspecified; R33.9 Retention of urine, unspecified; I73.9 Peripheral vascular disease, unspecified; I08.0 Rheumatic disorders of both mitral and aortic valves; E78.5 Hyperlipidemia, unspecified; G70.00 Myasthenia gravis without (acute) exacerbation; N18.30 Chronic kidney disease, stage 3 unspecified; Z20.822 Contact with and (suspected) exposure to COVID-19; Z87.891 Personal history of nicotine dependence; Z95.818 Presence of other cardiac implants and grafts; Z99.81 Dependence on supplemental oxygen; Z79.899 Other long term (current) drug therapy
CPT/HCPCS: 0241U; 36415; 36600; 71045; 71250; 78580; 80048; 80076; 80307; 81001; 82728; 82803; 83540; 83605; 83735; 83880; 84145; 84484; 85025; 85027; 85379; 85610; 86140; 86850; 86900; 86901; 87040; 87086; 87633; 93005; 94640; 94660; 99285; A9540; C1758; J0456; J0696; J1650; J1940; J1956; J2405; J2765; J2919

== ENCOUNTER → 2023-08-11 18:26 | Outpatient (BNV) | payer MEDICARE, OTHER, SELFPAY | PROVIDERS: Admitting Provider Physician Assistant; Emergency Provider Emergency Medicine; PCP Family Medicine; Visit Provider Family Medicine | DX: I50.23 Acute on chronic systolic (congestive) heart failure (principal); J96.21 Acute and chronic respiratory failure with hypoxia; J44.1 Chronic obstructive pulmonary disease with (acute) exacerbation; I35.1 Nonrheumatic aortic (valve) insufficiency; I27.20 Pulmonary hypertension, unspecified | CPT/HCPCS: 99223; 99233; 99239 ==

== ENCOUNTER → 2023-08-11 18:26 | Outpatient (BNV) | payer MEDICARE, OTHER, SELFPAY | PROVIDERS: Admitting Provider Physician Assistant; Emergency Provider Emergency Medicine; PCP Family Medicine; Visit Provider Internal Medicine | DX: I50.23 Acute on chronic systolic (congestive) heart failure (principal); I35.1 Nonrheumatic aortic (valve) insufficiency; I34.0 Nonrheumatic mitral (valve) insufficiency; I27.20 Pulmonary hypertension, unspecified | CPT/HCPCS: 93010; 99223; 99233 ==

== ENCOUNTER → 2023-08-11 18:26 | Outpatient (BNV) | payer MEDICARE, OTHER, SELFPAY | PROVIDERS: Admitting Provider Physician Assistant; Emergency Provider Emergency Medicine; PCP Family Medicine; Visit Provider Internal Medicine Pulmonary Disease | DX: J96.21 Acute and chronic respiratory failure with hypoxia (principal); I50.23 Acute on chronic systolic (congestive) heart failure; I27.20 Pulmonary hypertension, unspecified | CPT/HCPCS: 99222 ==

== ENCOUNTER 2023-09-16 18:02 | Inpatient (IN) | payer MEDICARE, OTHER, SELFPAY ==
[2023-09-16] VITALS (10 sets, daily range): BP systolic 117–156; BP diastolic 47–82; PULSE 58–94; RESP 16–33; TEMP 36.2–36.6; O2SAT 86–95; BMI 21.8; BMI 19.9
--- NOTE | ~2023-09-16 | XR_ITS ---
EXAMINATION: PORTABLE CHEST 1 VIEW CLINICAL INFORMATION: dyspnea hypoxia. COMPARISON: 08/14/2023. TECHNIQUE: Portable frontal view of the chest was obtained. FINDINGS: Lungs are well-expanded with chronic appearing coarsened reticular markings and possible bronchiectatic changes bilaterally superimposed on chronic emphysematous changes better delineated on the prior CT scan. Blunting of the costophrenic angle suggests tiny effusions. Central vascular prominence may reflect component of underlying pulmonary arterial hypertension although component of pulmonary edema cannot be excluded. Cardiac silhouette is enlarged with vascular calcification in aorta. Left-sided cardiomegaly is pulmonary artery pressure monitor seen XR/XR chest 1V IMPRESSION: Extensive chronic appearing changes better delineated on the prior CT scan. There is central vascular prominence which may reflect component of underlying pulmonary arterial hypertension although component of pulmonary edema cannot be excluded in this setting.
--- NOTE | ~2023-09-16 | CT_ITS ---
EXAMINATION: CT ABDOMEN AND PELVIS WITHOUT CONTRAST CLINICAL INFORMATION: Abdomen pain COMPARISON: None available. TECHNIQUE: Multidetector volumetric imaging was performed from the superior aspect of the liver through the pubic symphysis. Sagittal and coronal reformatted images were obtained on the technologist's workstation. This CT examination was performed using dose optimization techniques as appropriate, variously including the following: *Automated exposure control *Adjustment of mA and/or kV according to patient size (this includes techniques or standardized protocols for targeted exams where dose is matched to indication/reason for exam; i.e. extremities or head) *Use of iterative reconstruction technique DLP: 500 mGy-cm FINDINGS: LUNG BASES: There is bilateral pleural fluid greater on right than left. There is severe calcification of the region of the aortic valve and throughout the visualized coronaries. The heart appears enlarged. The attenuation within the cardiac chambers suggests anemia. There is consolidation in the lower lung some of which is due to atelectasis. Some reticular opacities are nonspecific. LIVER, GALLBLADDER, AND BILIARY TREE: No suspicious focal liver lesion. Gas centrally consistent with pneumobilia. There are surgical clips in the expected region of the gallbladder. PANCREAS: No definite abnormality. SPLEEN: There are some peripheral calcifications which do not require any further imaging follow-up. The spleen measures 11.6 cm which is within one standard deviation above the mean expected ADRENAL GLANDS: No suspicious abnormality KIDNEYS AND URETERS: No dilation of the urinary collecting system. No suspicious mass. BLADDER: There is a balloon catheter present. GASTROINTESTINAL TRACT: Large amount of fecal residue throughout the colon. The stomach is not distended. No significant small bowel dilation. There is some semisolid material within the small bowel suggesting delayed transit There is a small amount of free intraperitoneal fluid. ABDOMINAL WALL: There are large lobular low attenuating structures in the inguinal region on each side. Whether these represent lymph nodes or fluid collections is uncertain. LYMPH NODES: As described there are low attenuating areas in the inguinal region bilaterally. VASCULAR: There is a saccular abdominal aortic aneurysm the maximal external diameter is approximately 4.4 cm. There is no definite evidence of a retroperitoneal hematoma. PELVIC VISCERA: The uterus does not appear enlarged. No large adnexal mass. OSSEOUS STRUCTURES: There is a power source in the right gluteal soft tissues with a catheter traversing one of the sacral neural foramina and terminating near the sacral notch. There is volume loss with opaque cement at L2. CT/CT abdomen pelvis wo IV con IMPRESSION: Intraperitoneal fluid. Large amount of fecal residue. 4.4 cm abdominal aortic aneurysm without evidence of surrounding hemorrhage. Fluid attenuating collections or masses in the inguinal region bilaterally. Bilateral pleural fluid and some lung base disease. Anemia. Enlarged heart. Based upon best practices the recommendation for a 4.4 cm abdominal aortic aneurysm is follow-up every 12 months. Recommend vascular consultation Fleischner guidelines were followed.
--- NOTE | ~2023-09-16 | US_ITS ---
EXAMINATION: RENAL ARTERY DOPPLER ULTRASOUND CLINICAL INFORMATION: JUAN MIGUEL, rule out renal artery stenosis COMPARISON: None TECHNIQUE: Renal ultrasound. Doppler ultrasound (spectral analysis and color Doppler) of the renal arteries and aorta were performed. FINDINGS: The right kidney measures 9.8 x 5.4 x 5.3 cm in sagittal, AP and transverse dimensions. The left kidney measures 10.5 x 4.4 x 4.6 cm in sagittal, AP and transverse dimensions. Simple cyst in the right upper pole measuring 1.6 x 1.3 x 1.2 cm RENAL ARTERY VELOCITIES: Right: Proximally: 121 cm/s. Mid: 47 cm/s. Distal: 56 cm/s. Left: Proximally: 79 cm/s. Mid: 92 cm/s. Distally: 46 cm/s. INTERLOBAR RESISTIVE INDICES: Right: Upper: 0.69 Mid: 0.76 Lower: 0.63 Left: Upper: 0.71 Mid: 0.76 Lower: 0.67 Mid aortic velocity: 50 cm/s. Incidentally noted mid abdominal aortic aneurysm measuring 4.4 x 4.5 cm. Renal Aortic Ratio: Right: 2.42 Left: 1.84 US/US renal BI IMPRESSION: 1. The kidneys are normal in appearance. 2. There is no evidence of renal artery stenosis. 3. Incidentally noted mid abdominal aortic aneurysm measuring 4.4 x 4.5 cm. Best Practice Recommendation: Based on published guidelines in J Am Nimisha Radiol 2013; 10(10):789-794 and J Vasc Surg. 2018; 67:2-77, the recommendation for an abdominal aortic aneurysm with diameter 4.5-5.4 cm is vascular consultation and subsequent follow-up every 6 months.
--- NOTE | ~2023-09-16 | US_ITS ---
EXAMINATION: RENAL ARTERY DOPPLER ULTRASOUND CLINICAL INFORMATION: JUAN MIGUEL, rule out renal artery stenosis COMPARISON: None TECHNIQUE: Renal ultrasound. Doppler ultrasound (spectral analysis and color Doppler) of the renal arteries and aorta were performed. FINDINGS: The right kidney measures 9.8 x 5.4 x 5.3 cm in sagittal, AP and transverse dimensions. The left kidney measures 10.5 x 4.4 x 4.6 cm in sagittal, AP and transverse dimensions. Simple cyst in the right upper pole measuring 1.6 x 1.3 x 1.2 cm RENAL ARTERY VELOCITIES: Right: Proximally: 121 cm/s. Mid: 47 cm/s. Distal: 56 cm/s. Left: Proximally: 79 cm/s. Mid: 92 cm/s. Distally: 46 cm/s. INTERLOBAR RESISTIVE INDICES: Right: Upper: 0.69 Mid: 0.76 Lower: 0.63 Left: Upper: 0.71 Mid: 0.76 Lower: 0.67 Mid aortic velocity: 50 cm/s. Incidentally noted mid abdominal aortic aneurysm measuring 4.4 x 4.5 cm. Renal Aortic Ratio: Right: 2.42 Left: 1.84 US/US renal doppler IMPRESSION: 1. The kidneys are normal in appearance. 2. There is no evidence of renal artery stenosis. 3. Incidentally noted mid abdominal aortic aneurysm measuring 4.4 x 4.5 cm. Best Practice Recommendation: Based on published guidelines in J Am Nimisha Radiol 2013; 10(10):789-794 and J Vasc Surg. 2018; 67:2-77, the recommendation for an abdominal aortic aneurysm with diameter 4.5-5.4 cm is vascular consultation and subsequent follow-up every 6 months.
--- NOTE | 2023-09-16 18:08 | ECG_ITS ---
Test Reason : SOB Blood Pressure : / mmHG Vent. Rate : 060 BPM Atrial Rate : 060 BPM P-R Int : 142 ms QRS Dur : 136 ms QT Int : 464 ms P-R-T Axes : 047 008 097 degrees QTc Int : 464 ms Normal sinus rhythm Left ventricular hypertrophy with QRS widening and repolarization abnormality ( [place] product ) Inferior infarct (cited on or before 11-AUG-2023) Abnormal ECG When compared with ECG of 11-AUG-2023 15:09, Premature ventricular complexes are no longer Present Questionable change in QRS axis Nonspecific T wave abnormality no longer evident in Inferior leads T wave inversion now evident in Lateral leads Referred By: Ashok Good Electronically Signed By:RAMIRO OAKES MD
--- NOTE | 2023-09-16 18:12 | ED_ITS ---
HPI - Asthma General Chief Complaint: Dyspnea Stated Complaint: SOB Time Seen by Provider: 09/16/23 18:06 Source: patient Mode of arrival: ambulatory Limitations: no limitations History of Present Illness HPI Narrative: 83-year-old female with past history significant for COPD CHF presents emergency department with worsening shortness of breath. She has been having multiple problems shortness of breath multiple times over last couple of months has been hospital 3 times [facility] was here and admitted in August. She had oxygen saturations in the 80s for EMS still short of breath on arrival on 6 L and Respiratory was called will try the patient on BiPAP given ABG breathing treatments as he has been get the patient feeling better. She states all her symptoms started today Related Data Home Medications ?Medication ?Instructions ?Recorded ?Confirmed albuterol sulfate 90 mcg/actuation 2 puff inhalation Q4H PRN wheezing 08/11/23 08/11/23 aerosol inhaler amlodipine 10 mg tablet 10 mg PO BID 08/11/23 08/11/23 atenolol 50 mg tablet 25 mg PO BID 08/11/23 08/11/23 budesonide 0.5 mg/2 mL suspension 0.5 mg inhalation BID 08/11/23 08/11/23 for nebulization furosemide 20 mg tablet 20 mg PO BEDTIME 08/11/23 08/11/23 furosemide 20 mg tablet 40 mg PO QAM 08/11/23 08/11/23 ipratropium 0.5 mg-albuterol 3 mg 3 ml inhalation QID 08/11/23 08/11/23 (2.5 mg base)/3 mL nebulization soln losartan 50 mg tablet 50 mg PO DAILY 08/11/23 08/11/23 mirabegron 50 mg tablet,extended 50 mg PO DAILY 08/11/23 08/11/23 release 24 hr omeprazole 40 mg capsule,delayed 40 mg PO BID PRN Heartburn 08/11/23 08/11/23 release oxcarbazepine 600 mg tablet 600 mg PO BEDTIME 08/11/23 08/11/23 prednisone 1 mg tablet 0.5 mg PO DAILY 08/11/23 08/11/23 rosuvastatin 20 mg tablet 20 mg PO DAILY 08/11/23 08/11/23 terazosin 10 mg capsule 20 mg PO BEDTIME 08/11/23 08/12/23 trazodone 100 mg tablet 100 mg PO DAILY 08/11/23 08/11/23 lorazepam 1 mg tablet (Ativan) 1 mg PO DAILY PRN Anxiety 08/13/23 08/13/23 Previous Rx's ?Medication ?Instructions ?Recorded enoxaparin 30 mg/0.3 mL 30 mg (0.3 mL) subcut Q24H #1 mL 08/14/23 subcutaneous syringe furosemide 10 mg/mL injection 40 mg IVPUSH BID@0900,1800 #1 mL 08/14/23 solution ipratropium 0.5 mg-albuterol 3 mg 3 ml inhalation RQ4H WHILE AWAKE 08/14/23 (2.5 mg base)/3 mL nebulization PRN Shortness Of Breath/Wheezing soln #1 mL levofloxacin 750 mg/150 mL in 5 % 750 mg IV Q48H #1 mL 08/14/23 dextrose intravenous piggyback methylprednisolone sod suc(PF) 40 60 mg (1.5 mL) IVPUSH Q6H #1 ea 08/14/23 mg/mL solution for injection (Solu-Medrol (PF)) nicotine 7 mg/24 hr daily 7 mg transdermal DAILY #1 ea 08/14/23 transdermal patch Allergies Allergy/AdvReac Type Severity Reaction Status Date / Time SARI Inhibitors Allergy Unknown ANGIOEDEMA Verified 09/16/23 18:09 [SARI INHIBITORS] Review of Systems 2 Review of Systems: Review of systems: General: Patient denies any fever chills recent illness or falls Musculoskeletal: Denies back pain or body aches or other injuries HEENT: denies headache, runny nose, ear pain Respiratory: shortness of breath, cough Cardiovascular: no chest pain or palpitations : denies dysuria, frequency Abdomen: no nausea vomiting denies abdominal pain Extremities: no swelling, no pain Skin: no diaphoresis Yes all other systems are reviewed and are negative [facility] Past Medical History Medical History Peripheral artery disease Myasthenia gravis Hypertension Urinary retention AAA (abdominal aortic aneurysm) Moderate to severe aortic valve regurgitation Heart failure with reduced ejection fraction Cigarette smoker Asthma-COPD overlap syndrome Social History Social History Household Members: Friend(s) Housing: Condominium Do you presently have visiting nurse or other home services: No Patient Tobacco Use Status: Former Tobacco user Tobacco use type: Cigarette e-Cigarette/Vaping Use: Never Used Second Hand Smoke Exposure: Yes Advance Directives: No Advance Directives Information Provided: No Do you have a plan to hurt others: No Plan service: No Physical Exam 2 Vital Signs: Vital Signs: Last Vital Signs Temp 97.6 F 09/16/23 18:05 Pulse 58 09/16/23 18:34 Resp 33 H 09/16/23 18:34 BP 147/54 H 09/16/23 18:05 Pulse Ox 90 L 09/16/23 18:05 O2 Del Method Nasal Cannula 09/16/23 18:05 Oxygen Flow Rate 6 09/16/23 18:05 BMI result Body Mass Index 21.8 Course Reevaluation(s) Reevaluation #1: ABG is unremarkable take the patient off BiPAP at this time. XR consistent with CHF i will start on lasix at this time. Medications Administered Discontinued Medications Generic Name Dose Route Start Last Admin Trade Name Freq PRN Reason Stop Dose Admin Albuterol Sulfate 7.5 mg/ 0 mg 09/16/23 18:27 09/16/23 18:34 Albuterol/Ipratropium 3 ml INHALE 09/16/23 18:28 10 each ONCE ONE Administration Medical Decision Making Medical Decision Making [facility] Narrative: Will give patient over for breathing treatments BiPAP and reassess. Differential Diagnosis Differential Diagnoses: The differential diagnosis associated with the presentation includes COPD CHF sepsis pneumonia less likely PE Consult Healthcare Provider Management of the patient was discussed with: Hospitalist I did speak with Dr. Blankenship who agrees with admission Lab Data [facility] Lab Attestation statement: I reviewed the patient's lab results. 09/16/23 18:28 09/16/23 18:28 Labs: Lab Results 09/16/23 09/16/23 09/16/23 Range/Units 18:28 18:29 18:46 WBC 7.8 (4.8-10.8) X10*3/uL RBC 4.04 L (4.20-5.50) X10*6/uL Hgb 8.4 L (12.0-16.0) g/dl Hct 30.1 L (37.0-47.0) % MCV 74.5 L (80.0-98.0) fL MCH 20.8 L (27.0-33.0) pg MCHC 27.9 L (31.0-35.0) g/dl RDW 17.6 H (11.0-16.0) % Plt Count 186 (160-400) X10*3/uL MPV 11.1 (9.4-12.3) fL Immature Gran % (Auto) 0.3 (0.0-0.4) % Neut % (Auto) 81.4 H (45-73) % Lymph % (Auto) 9.3 L (20-40) % [place] % (Auto) 6.0 (2-11) % Eos % (Auto) 2.2 (0-4) % Baso % (Auto) 0.8 (0-2) % Lymph # (Auto) 0.7 L (1.2-4.9) X10*3/uL [place] # (Auto) 0.5 (0.1-1.2) X10*3/uL Eos # (Auto) 0.2 (0.0-0.4) X10*3/uL Baso # (Auto) 0.1 (0.0-0.2) X10*3/uL Abs Immat Gran (auto) 0.02 (0.00-0.03) X10*3/uL Absolute Neuts (auto) 6.4 (2.0-8.3) x10*3/uL Absolute Nucleated RBC 0.000 (0.0-0.012) X10*3/uL Nucleated RBC % (auto) 0.0 (0.0-0.2) /100WBC O2 Saturation 100.0 % ABG pH at Pt Temp 7.43 (7.35-7.45) ABG pCO2 at Pt Temp 37 (32-45) mmHg ABG pO2 at Pt Temp 98 (83-108) mmHg ABG HCO3 25 (22-26) mmol/L ABG Base Excess (Actual) 1.7 mmol/L Sodium 139 (135-145) mmol/L Potassium 4.7 (3.3-5.1) mmol/L Chloride 102 (96-108) mmol/L Carbon Dioxide 25 (22-29) mmol/L Anion Gap 17 (12-20) BUN 27 H (9-16) mg/dL Creatinine 1.36 (0.5-1.4) mg/dL Estim Creat Clear Calc 26.5 Estimated GFR 37 Random Glucose 204 H (60-115) mg/dL Lactic Acid 1.5 (0.5-2.0) mmol/L Calcium 9.3 (8.4-10.2) mg/dL Total Bilirubin 0.4 (0.0-1.0) mg/dL Direct Bilirubin 0.2 (0.0-0.5) mg/dL AST 14 (5-31) U/L ALT 7 (0-31) U/L Alkaline Phosphatase 75 (39-117) U/L Troponin I High Sens 12.3 D (<3.5-17.0) ng/L B-Natriuretic Peptide 3916 H (<100) pg/mL Total Protein 6.6 (6.5-8.0) g/dL Albumin 3.9 (3.5-5.0) g/dL Lipase 17 (8-78) U/L Independent Interpretation I performed an independent interpretation of an: EKG, Rhythm Strip and Plain X- Ray Interpretation: EKG rate 60 normal sinus rhythm normal intervals no signs of ischemia will change from previous interpreted by me Independent Historian Clinical information obtained from an independent historian. History obtained from or confirmed by: EMS External Record Review External record reviewed: Inpatient record and Office record Chronic Conditions COPD Social Determinants Patient?s care significantly limited by Social Determinants of Health including: Problems related to primary support group Core Measures AMI core measures followed: Yes Critical Care Time Critical Care Time Critical Care Time: Yes Total Critical Care Time: 45 Attestation: But here patient with hypoxia weakness dehydration CHF exacerbation COPD requiring around multiple re-evaluations afterwards well as interpretation of ABG trialed on BiPAP improved Discharge Plan Discharge Clinical Impression: Acute dyspnea, Acute on chronic hypoxic respiratory failure, Congestive heart failure, Acute exacerbation of chronic obstructive pulmonary disease Patient Disposition: Admitted As Inpatient Prescriptions: No Action losartan 50 mg tablet 50 mg PO DAILY Hold Instructions: Resume on 09/02/23. ipratropium-albuterol 0.5 mg-3 mg(2.5 mg base)/3 mL solution for nebulization 3 ml inhalation QID omeprazole 40 mg capsule,delayed release(DR/EC) 40 mg PO BID PRN (Reason: Heartburn) trazodone 100 mg tablet 100 mg PO DAILY prednisone 1 mg tablet 0.5 mg PO DAILY Hold Instructions: Resume on 09/02/23. Rx Instructions: per patient, 0.5mg daily for 2 weeks (currently on first week), then 0.5mg QOD for 2 weeks, then stop amlodipine 10 mg tablet 10 mg PO BID budesonide 0.5 mg/2 mL suspension for nebulization 0.5 mg inhalation BID Hold Instructions: Resume on 09/02/23. oxcarbazepine 600 mg tablet 600 mg PO BEDTIME furosemide 20 mg tablet 20 mg PO BEDTIME Hold Instructions: Resume on 09/02/23. furosemide 20 mg tablet 40 mg PO QAM Hold Instructions: Resume on 09/02/23. albuterol sulfate 90 mcg/actuation HFA aerosol inhaler 2 puff inhalation Q4H PRN (Reason: wheezing) terazosin 10 mg capsule 20 mg PO BEDTIME atenolol 50 mg tablet 25 mg PO BID Rx Instructions: patient says she cuts these in half rosuvastatin 20 mg tablet 20 mg PO DAILY mirabegron 50 mg tablet extended release 24 hr 50 mg PO DAILY lorazepam [Ativan] 1 mg Tablet 1 mg PO DAILY PRN (Reason: Anxiety) furosemide 10 mg/mL Solution 40 mg IVPUSH BID@0900,1800 Qty: 1 0RF Protocol: Hold for SBP< HOLD for SBP < : 90 ipratropium-albuterol 0.5 mg-3 mg(2.5 mg base)/3 mL Solution For Nebulization 3 ml inhalation RQ4H WHILE AWAKE PRN (Reason: Shortness Of Breath/Wheezing) Qty: 1 0RF nicotine 7 mg/24 hr Patch 24 Hour 7 mg transdermal DAILY Qty: 1 0RF enoxaparin 30 mg/0.3 mL Syringe 30 mg subcut Q24H Qty: 1 0RF levofloxacin in D5W 750 mg/150 mL Piggyback 750 mg IV Q48H Qty: 1 0RF Solu-Medrol (PF) 40 mg/mL Recon Soln 60 mg IVPUSH Q6H Qty: 1 0RF Print Language: Citizen Of [place]
[2023-09-16] MEDS: Albuterol Sulfate 7.5 MG, Albuterol/Iprat 2.5/0.5MG 3 ML 3 ML INHALE (18:34)
[2023-09-16 18:36] LABS: MANUAL DIFF FLAG NO
[2023-09-16 18:38] LABS: Basophils Absolute Auto 0.1 X10*3/uL (0.0-0.2); Basophils Percent Auto 0.8 % (0-2); Eosinophils Absolute Auto 0.2 X10*3/uL (0.0-0.4); Eosinophils Percent Auto 2.2 % (0-4); Hematocrit 30.1 % (37.0-47.0); Hemoglobin 8.4 g/dl (12.0-16.0); Imm Gran Abs Auto 0.02 X10*3/uL (0.00-0.03); Imm Gran Pct Auto 0.3 % (0.0-0.4); Lymphocytes Absolute Auto 0.7 X10*3/uL (1.2-4.9); Lymphocytes Percent Auto 9.3 % (20-40); Mean Corpuscular HGB Conc 27.9 g/dl (31.0-35.0); Mean Corpuscular Hemoglobin 20.8 pg (27.0-33.0); Mean Corpuscular Volume 74.5 fL (80.0-98.0); Mean Platelet Volume 11.1 fL (9.4-12.3); Monocytes Absolute Auto 0.5 X10*3/uL (0.1-1.2); Neutrophils Absolute Auto 6.4 x10*3/uL (2.0-8.3); Neutrophils Percent Auto 81.4 % (45-73); Platelet Count 186 X10*3/uL (160-400); Red Blood Count 4.04 X10*6/uL (4.20-5.50); Red Cell Distribution Width 17.6 % (11.0-16.0); White Blood Count 7.8 X10*3/uL (4.8-10.8)
[2023-09-16 18:49] LABS: Lactic Acid 1.5 mmol/L (0.5-2.0)
[2023-09-16 18:55] LABS: Alanine Aminotransferase 7 U/L (0-31); Albumin Level 3.9 g/dL (3.5-5.0); Alkaline Phosphatase 75 U/L (39-117); Anion Gap 17 (12-20); Aspartate Amino Transferase 14 U/L (5-31); Bilirubin Direct 0.2 mg/dL (0.0-0.5); Bilirubin Total 0.4 mg/dL (0.0-1.0); Blood Urea Nitrogen 27 mg/dL (9-16); Calcium 9.3 mg/dL (8.4-10.2); Carbon Dioxide 25 mmol/L (22-29); Chloride 102 mmol/L (96-108); Creatinine Clr Calc Pharmacy 26.5; Estimated Glomerular Filt Rate 37; Glucose Random 204 mg/dL (60-115); Lipase 17 U/L (8-78); Potassium 4.7 mmol/L (3.3-5.1); Sodium 139 mmol/L (135-145); Total Protein 6.6 g/dL (6.5-8.0)
[2023-09-16 18:56] LABS: ABG Base Excess 1.7 mmol/L; ABG HCO3 25 mmol/L (22-26); ABG pCO2 37 mmHg (32-45); ABG pH 7.43 (7.35-7.45); ABG pO2 98 mmHg (83-108)
[2023-09-16 18:58] LABS: B Type Natriuretic Peptide 3916 pg/mL (<100)
[2023-09-16 19:02] LABS: Troponin-I High Sensitivity 12.3 ng/L (<3.5-17.0)
[2023-09-16] MEDS: methylPREDNISolone Sod Succ 125 MG/2 ML VIAL IVPUSH (19:13)
[2023-09-16] MEDS: 0.9 % Sodium Chloride 1,000 ML 999 ML IV (19:13)
[2023-09-16 19:16] LABS: Influenza A PCR NEGATIVE (Negative); Influenza B PCR NEGATIVE (Negative); Resp Syncy Virus RNA Qual PCR NEGATIVE (Negative); SARS COV2 PCR INHOUSE NEGATIVE (Negative)
--- NOTE | 2023-09-16 19:48 | P.HPHOSP_ITS ---
History of Present Illness Date of Service: 09/16/23 Chief Complaint: Dyspnea This is a 83-year-old female with pertinent history of congestive heart failure with reduced ejection fraction, severe mitral annular calcification with regurgitation, calcified aortic valve with moderate regurgitation, moderate tricuspid regurgitation, pulmonary hypertension, chronic hypoxic respiratory failure on 2 L supplemental oxygen, CKD stage 3, hypertension, peripheral arterial disease, mixed hyperlipidemia, urinary retention dependent on self catheterization, myasthenia gravis, gastroesophageal reflux disease, mood disorder who presents to the emergency department for evaluation of dyspnea. Patient states her symptoms started on the day of presentation. She has been having dyspnea and wheezing. Admits orthopnea. No cough or fever or chills. Patient with recurrent hospitalizations due to dyspnea in the past few months. Patient denies chest discomfort, palpitations, abdominal pain, changes in urinary or bowel habits. Patient was found to be satting in the 80s on her 2 L baseline supplemental oxygen as per EMS. Patient was placed on BiPAP upon arrival in the ER. Patient states she has an appointment with the scorer helper tomorrow and has two outpatient scheduled tests. Patient's breathing improved with BiPAP in the ER. ABG within normal limits. She was given IV diuresis and admitted to hospital medicine. Review of Systems 2 Constitutional: Constitutional: Reports fatigue and Reports malaise Cardiovascular: Cardiovascular: Reports dyspnea on exertion and Reports orthopnea Respiratory: Respiratory: Reports dyspnea on exertion and Reports wheezing Gastrointestinal: Gastrointestinal: Reports no additional gastrointestinal complaints Genitourinary: Genitourinary: Reports no additional female genitourinary complaints Endocrine: Endocrine: Reports fatigue Allergic/Immunologic: Allergic/Immunologic: Reports wheezing [facility] Medical History Peripheral artery disease Myasthenia gravis Hypertension Urinary retention AAA (abdominal aortic aneurysm) Moderate to severe aortic valve regurgitation Heart failure with reduced ejection fraction Cigarette smoker Asthma-COPD overlap syndrome Pertinent family history: No family history of early CAD Social History Household Members: Friend(s) Housing: Condominium Do you presently have visiting nurse or other home services: No Patient Tobacco Use Status: Former Tobacco user Tobacco use type: Cigarette e-Cigarette/Vaping Use: Never Used Second Hand Smoke Exposure: Yes Advance Directives: No Advance Directives Information Provided: No Do you have a plan to hurt others: No Plan service: No Meds Allergies Allergy/AdvReac Type Severity Reaction Status Date / Time SARI Inhibitors Allergy Unknown ANGIOEDEMA Verified 09/16/23 18:09 [SARI INHIBITORS] Home Medications ?Medication ?Instructions ?Recorded ?Confirmed ?Last Taken ?Type albuterol sulfate 90 mcg/actuation 2 puff inhalation Q4H PRN wheezing 08/11/23 08/11/23 Unknown History aerosol inhaler amlodipine 10 mg tablet 10 mg PO BID 08/11/23 08/11/23 Unknown History atenolol 50 mg tablet 25 mg PO BID 08/11/23 08/11/23 Unknown History budesonide 0.5 mg/2 mL suspension 0.5 mg inhalation BID 08/11/23 08/11/23 Unknown History for nebulization furosemide 20 mg tablet 20 mg PO BEDTIME 08/11/23 08/11/23 Unknown History furosemide 20 mg tablet 40 mg PO QAM 08/11/23 08/11/23 Unknown History ipratropium 0.5 mg-albuterol 3 mg 3 ml inhalation QID 08/11/23 08/11/23 Unknown History (2.5 mg base)/3 mL nebulization soln losartan 50 mg tablet 50 mg PO DAILY 08/11/23 08/11/23 Unknown History mirabegron 50 mg tablet,extended 50 mg PO DAILY 08/11/23 08/11/23 Unknown History release 24 hr omeprazole 40 mg capsule,delayed 40 mg PO BID PRN Heartburn 08/11/23 08/11/23 Unknown History release oxcarbazepine 600 mg tablet 600 mg PO BEDTIME 08/11/23 08/11/23 Unknown History prednisone 1 mg tablet 0.5 mg PO DAILY 08/11/23 08/11/23 Unknown History rosuvastatin 20 mg tablet 20 mg PO DAILY 08/11/23 08/11/23 Unknown History terazosin 10 mg capsule 20 mg PO BEDTIME 08/11/23 08/12/23 Unknown History trazodone 100 mg tablet 100 mg PO DAILY 08/11/23 08/11/23 Unknown History lorazepam 1 mg tablet (Ativan) 1 mg PO DAILY PRN Anxiety 08/13/23 08/13/23 Unknown History cholecalciferol (vitamin D3) 25 25 mcg PO QAM 09/16/23 Unknown History mcg (1,000 unit) capsule desmopressin 0.2 mg tablet 0.2 mg PO DAILY 09/16/23 Unknown History nicotine (polacrilex) 4 mg gum 4 mg PO Q2H PRN Nicotine Cravings 09/16/23 Unknown History spironolactone 25 mg tablet 25 mg PO DAILY 09/16/23 Unknown History Physical Exam 2 Vital Signs and Narrative: Vital Signs: Last Vital Signs Temp 97.6 F 09/16/23 18:05 Pulse 58 09/16/23 18:34 Resp 33 H 09/16/23 18:34 BP 147/54 H 09/16/23 18:05 Pulse Ox 90 L 09/16/23 18:05 O2 Del Method Nasal Cannula 09/16/23 18:05 Oxygen Flow Rate 6 09/16/23 18:05 BMI result Body Mass Index 21.8 Elderly female lying in bed in mild distress on supplemental oxygen Neck supple Regular rate and rhythm, S1-S2 heard Bilateral crackles with wheezing Abdomen soft nontender, no guarding, no rigidity Patient is awake, alert and oriented to self, place, time and person ; no focal motor deficit Psych: Normal mood Mild pedal edema Results Labs 09/16/23 18:28 09/16/23 18:28 Labs: Laboratory Results - last 24 hr 09/16/23 09/16/23 09/16/23 18:28 18:29 18:46 MCV 74.5 L MCH 20.8 L MCHC 27.9 L RDW 17.6 H Plt Count 186 MPV 11.1 Immature Gran % (Auto) 0.3 Neut % (Auto) 81.4 H Lymph % (Auto) 9.3 L [place] % (Auto) 6.0 Eos % (Auto) 2.2 Baso % (Auto) 0.8 Lymph # (Auto) 0.7 L [place] # (Auto) 0.5 Eos # (Auto) 0.2 Baso # (Auto) 0.1 Abs Immat Gran (auto) 0.02 Absolute Neuts (auto) 6.4 Absolute Nucleated RBC 0.000 Nucleated RBC % (auto) 0.0 O2 Saturation 100.0 ABG pH at Pt Temp 7.43 ABG pCO2 at Pt Temp 37 ABG pO2 at Pt Temp 98 ABG HCO3 25 ABG Base Excess (Actual) 1.7 Anion Gap 17 Estim Creat Clear Calc 26.5 Estimated GFR 37 Random Glucose 204 H Lactic Acid 1.5 Calcium 9.3 Total Bilirubin 0.4 Direct Bilirubin 0.2 AST 14 ALT 7 Alkaline Phosphatase 75 Troponin I High Sens 12.3 D B-Natriuretic Peptide 3916 H Total Protein 6.6 Albumin 3.9 Lipase 17 Influenza Type A (PCR) NEGATIVE Influenza Type B (PCR) NEGATIVE RSV RNA Qual (PCR) NEGATIVE SARS-CoV-2 RNA (RT-PCR) NEGATIVE Assessment and Plan (1) Acute on chronic hypoxic respiratory failure: Status: Acute (2) Congestive heart failure: Status: Acute (3) Acute exacerbation of chronic obstructive pulmonary disease: Status: Acute Plan This is a 83-year-old female with pertinent history of congestive heart failure with reduced ejection fraction, severe mitral annular calcification with regurgitation, calcified aortic valve with moderate regurgitation, moderate tricuspid regurgitation, pulmonary hypertension, chronic hypoxic respiratory failure on 2 L supplemental oxygen, CKD stage 3, hypertension, peripheral arterial disease, mixed hyperlipidemia, urinary retention dependent on self catheterization, myasthenia gravis, gastroesophageal reflux disease, mood disorder who presents to the emergency department for evaluation of dyspnea. #. Acute on chronic hypoxic respiratory failure due to acute exacerbation of congestive heart failure with reduced ejection fraction: Will admit patient with supplemental oxygen. On 2 L at baseline, currently requiring 4 L. initiating IV diuresis. Strict I's and O's. Low-salt diet. Consulted Cardiology in this patient with multiple valvular abnormalities and recurrent hospitalizations. Patient on beta-phong and ARB #. Acute exacerbation of COPD also contributing to acute hypoxemic: Initiating IV steroids. Scheduled and p.r.n. DuoNebs. Continue home inhaler #. Chronic kidney disease stage 3: At baseline. Continue to monitor with diuresis #. Hypertension: On amlodipine, beta-phong, losartan and furosemide #. Mood disorder: On trazodone at bedtime and lorazepam p.r.n. #. Peripheral arterial disease/mixed hyperlipidemia: On statin #. Urinary retention: Self catheterization at home. Will insert [place] fluid management. Continue mirabegron Med rec pending DVT prophylaxis: Lovenox Full code Admit as inpatient and will require two night minimum hospital stay for supplemental oxygen, IV diuresis, IV steroids (as above), which is not possible in a lesser acute setting. Quality Stroke Does the patient have a stroke diagnosis?: No VTE Prior VTE?: No VTE Risk Level:: Medical - moderate - high VTE Device Contraindication: Treatment Not Indicated VTE Drug Contraindication: N/A - Med Ordered
--- NOTE | 2023-09-16 20:07 | PC.NURSE ---
pt educated on the use of lovenox, pt refusing medication administration as last time i was admitted my stomach was all black and blue and there is no need for that. pt educated on risk and pt verbalizes understanding and continues to refuse med.
[2023-09-16] MEDS: Albuterol/Iprat 2.5/0.5MG 3 ML AMPUL.NEB INHALE (20:12)
[2023-09-16] MEDS: Furosemide 40 MG/4 ML VIAL IVPUSH (20:18)
[2023-09-16] MEDS: Albuterol Sulfate 2.5 MG/0.5 ML VIAL.NEB 5 MG INHALE (20:56)
[2023-09-16] MEDS: LORazepam 2 MG/ML VIAL 1 MG IVPUSH (21:01)
[2023-09-16] MEDS: Haloperidol Lactate 5 MG/ML VIAL IVPUSH (21:01)
--- NOTE | 2023-09-16 21:02 | PC.NURSE ---
Addendum entered by Celeste Rey 09/16/23 21:03: advance grubbs with pt in a sitting position. RT called to bedside and attempted bipap however pt ripped it off stating she cannot tolerate it. called to bedside. with verbal reassurance pt continues to refuse to lay back as states she cannot breathe. lung sounds tight/crackles. pt sitting on edge of bed tripoding. per Dr. Mae and Dr. Westfall meds ordered and given per may. pt also received iv lasix per may. pt currently receiving breathing tx with RT at bedside. will reattempt bipap and grubbs. Original Note: assumed care of pt 1914, pt not tolerating position changes/bipap machine. after receiving breathing tx sats 93% on 4L NC, attempt to reposition pt to place grubbs in, pt reported she cannot lay back and cannot afv
[2023-09-16 21:03] LABS: ABG Refer to POC result
--- NOTE | 2023-09-16 21:23 | PC.NURSE ---
pt medicated per may. tolerating cpap per RT placement. pt tolerated grubbs insertion without uroject. pt resting comfortably now grubbs draining urine clear yellow.
[2023-09-16 21:51] LABS: Appearance Urine Cloudy; Color Urine Yellow; Glucose Urine UA Negative (Negative); Leukocyte Esterase Urine Moderate (2+) (Negative); Nitrite Urine Positive (Negative); Specific Gravity - Urine 1.015 (1.005-1.025); UMIC TRIGGER UACC YES; Urine Blood Negative (Negative); Urine Ketones Negative (Negative); Urine Protein Negative (Neg-Trace)
[2023-09-16 22:07] LABS: Bacteria Urine 3+ (None Seen); Hyaline Casts Urine >20 /LPF (0-2); RBC Urine 0-2 /HPF (0-2); UACC Culture Trigger YES; WBC Urine 21-50 /HPF (0-5)
--- NOTE | 2023-09-16 22:17 | PC.NURSE ---
upon transport to s3 pt is arousable to name/tactile stimulation. vss. pt taken off cpap by RT and sats remain 93-94% on 4L NC. pt transported to floor without issue.
[2023-09-17] VITALS (14 sets, daily range): BP systolic 116–139; BP diastolic 56–65; PULSE 62–74; RESP 16–18; TEMP 36–36.8; O2SAT 92–100
[2023-09-17 06:52] LABS: MANUAL DIFF FLAG NO
[2023-09-17 06:55] LABS: Basophils Percent Auto 0.2 % (0-2); Hematocrit 26.5 % (37.0-47.0); Hemoglobin 7.4 g/dl (12.0-16.0); Imm Gran Abs Auto 0.02 X10*3/uL (0.00-0.03); Imm Gran Pct Auto 0.5 % (0.0-0.4); Lymphocytes Absolute Auto 0.3 X10*3/uL (1.2-4.9); Lymphocytes Percent Auto 6.6 % (20-40); Mean Corpuscular HGB Conc 27.9 g/dl (31.0-35.0); Mean Corpuscular Hemoglobin 20.6 pg (27.0-33.0); Mean Corpuscular Volume 73.6 fL (80.0-98.0); Mean Platelet Volume 10.8 fL (9.4-12.3); Monocytes Absolute Auto 0.2 X10*3/uL (0.1-1.2); Monocytes Percent Auto 3.4 % (2-11); Neutrophils Absolute Auto 3.9 x10*3/uL (2.0-8.3); Neutrophils Percent Auto 89.3 % (45-73); Platelet Count 145 X10*3/uL (160-400); Red Cell Distribution Width 17.4 % (11.0-16.0); White Blood Count 4.4 X10*3/uL (4.8-10.8)
[2023-09-17 07:14] LABS: Anion Gap 15 (12-20); Blood Urea Nitrogen 26 mg/dL (9-16); Calcium 8.4 mg/dL (8.4-10.2); Carbon Dioxide 22 mmol/L (22-29); Chloride 107 mmol/L (96-108); Creatinine Clr Calc Pharmacy 28.4; Estimated Glomerular Filt Rate 42; Glucose Random 140 mg/dL (60-115); Potassium 4.3 mmol/L (3.3-5.1); Sodium 140 mmol/L (135-145)
[2023-09-17] MEDS: Furosemide 40 MG/4 ML VIAL IVPUSH ×2 (07:48→17:25)
[2023-09-17] MEDS: methylPREDNISolone Sod Succ 40 MG/ML VIAL IVPUSH ×2 (07:48→20:35)
[2023-09-17] MEDS: Albuterol/Iprat 2.5/0.5MG 3 ML AMPUL.NEB INHALE ×4 (08:09→19:33)
--- NOTE | 2023-09-17 09:17 | PHA.MEDREC ---
Pharmacy Consult ? Medication Reconciliation Pharmacy has completed the medication reconciliation. Utilized list from [facility], accurate as of 09/11/2023, patient stated that everything was the same. Patient stated last time she took her medications was yesterday morning.
--- NOTE | 2023-09-17 09:29 | MHC.CM.PN ---
IMM 09/17/23, EMR REVIEWED, CM MET W/PT WHO WAS IRRITABLE AND DECLINING TO ANSWER QUESTIONS AND REPETIVELY STATING IT'S IN MY CHART PT ALSO C/O HER LEGS NOT WORKING AND INSISTING WHAT SHE NEEDS IS TO SEE A NEUROLOGIST, PT DOES REPORT SHE HAS A CANE/WALKER/GRAB BARS ALL OVER THE HOUSE AND NO HOME SERVICES, PT HAD SAID SHE WAS TRYING TO GET P.T. HOWEVER WHEN CM OFFERED P.T. EVAL PT DECLINED AND STATES, THAT WON'T HELP. PT DECLINES TO GIVE CM NAME OF PCP OR DOES NOT RECALL NAME, PER CM TEXT TRANSCRIBER PT'S PCP IS MARLON ESPINOZA, PT INSISTS THERE IS A HCP ON FILE HOWEVER CM UNABLE TO LOCATE IN CHART OR [facility]. CM WILL REVISIT.
--- NOTE | 2023-09-17 10:28 | P.PNIM_ITS ---
Subjective Subjective Date of Service: 09/17/23 Interval History: f/u on copd and chf exacerbation her breathing is better, Physical Exam 2 Vital Signs: Vital Signs: Last Vital Signs Temp 96.8 F 09/17/23 07:42 Pulse 65 09/17/23 08:13 Resp 16 09/17/23 08:13 BP 139/65 09/17/23 07:42 Pulse Ox 98 09/17/23 07:42 O2 Del Method Nasal Cannula 09/17/23 07:42 O2 Flow Rate 3 09/17/23 07:42 Oxygen Flow Rate 6 09/16/23 18:05 BMI result Body Mass Index 19.9 General: AO X 3, no acute distress Resp: dimished bilaterally CVS: S1,S2,RRR GI: +BS, NT, no distention Skin: No rash Neuro: motor grossly intact Psych: appropriate affect Objective Data Active Medications Acetaminophen (Acetaminophen 325 Mg Tablet) 650 mg PO Q6H PRN PRN Reason: Pain, Mild (Pain Scale 1-3), fever or headache Albuterol/Ipratropium (Albuterol/Iprat 2.5/0.5mg 3 Ml Ampul.Neb) 3 ml INHALE RQ4H WHILE AWAKE [facility] Last Admin: 09/17/23 08:09 Dose: 3 ml Documented By: TONY Albuterol/Ipratropium (Albuterol/Iprat 2.5/0.5mg 3 Ml Ampul.Neb) 3 ml INHALE Q4H PRN PRN Reason: Wheezing Aspirin (Aspirin Enteric Coated 81 Mg Tablet.Dr) 81 mg PO DAILY [facility] Atenolol (Atenolol 50 Mg Tablet) 50 mg PO BID [facility]; Protocol Benzonatate (Benzonatate 100 Mg Capsule) 100 mg PO TID PRN PRN Reason: Cough Budesonide (Budesonide 0.5 Mg/2 Ml Ampul.Neb) 0.5 mg INHALE BID [facility] Calcium Carbonate (Calcium Carbonate 750 Mg Tab.Chew) 750 mg PO Q4H PRN PRN Reason: Heartburn Cyanocobalamin (Cyanocobalamin (Vitamin B-12) 1,000 Mcg Tablet) 1,000 mcg PO DAILY [facility] Desmopressin Acetate (Desmopressin Acetate 0.2 Mg Tablet) 0.2 mg PO DAILY [facility] Enoxaparin Sodium (Enoxaparin Sodium 30 Mg/0.3 Ml Syringe) 30 mg SUBCUT Q24H [facility] Last Admin: 09/16/23 20:10 Dose: Not Given Documented By: AMY Non-Admin Reason: Patient Refused Furosemide (Furosemide 40 Mg/4 Ml Vial) 40 mg IVPUSH BID@0900,1800 [facility]; Protocol Last Admin: 09/17/23 07:48 Dose: 40 mg Documented By: PAIGE Furosemide (Furosemide 40 Mg Tablet) 40 mg PO BID [facility]; Protocol Lorazepam (Lorazepam 1 Mg Tablet) 1 mg PO ONCE PRN PRN Reason: anxiety/restlessness Losartan Potassium (Losartan Potassium 50 Mg Tablet) 50 mg PO DAILY [facility]; Protocol Magnesium Hydroxide (Milk Of Magnesia 30 Ml Oral.Susp) 30 ml PO DAILY PRN PRN Reason: Constipation Melatonin (Melatonin 3 Mg Tablet) 6 mg PO BEDTIME PRN PRN Reason: Insomnia Methylprednisolone Sodium Succinate (Methylprednisolone Sod Succ 40 Mg/Ml Vial) 40 mg IVPUSH Q12H [facility] Last Admin: 09/17/23 07:48 Dose: 40 mg Documented By: PAIGE Mirabegron (Mirabegron 50 Mg Tab.Er.24h) 50 mg PO DAILY [facility] Non-Formulary Medication (Terazosin) 20 mg PO BEDTIME [facility] Non-Formulary Medication (Rosuvastatin) 20 mg PO DAILY [facility] Omeprazole (Omeprazole 20 Mg Capsule.Dr) 20 mg PO BID PRN PRN Reason: Heartburn Ondansetron HCl (Ondansetron Hcl 4 Mg/2 Ml Vial) 4 mg IVPUSH Q8H PRN PRN Reason: Nausea and Vomiting Oxcarbazepine (Oxcarbazepine 300 Mg Tablet) 600 mg PO BEDTIME [facility] Spironolactone (Spironolactone 25 Mg Tablet) 25 mg PO DAILY [facility]; Protocol Trazodone HCl (Trazodone Hcl 100 Mg Tablet) 100 mg PO BEDTIME [facility] Vitamin D (Cholecalciferol (Vitamin D3) 25 Mcg Tablet) 50 mcg PO DAILY [facility] Labs 09/17/23 06:46 09/17/23 06:46 Labs: Laboratory Results - last 24 hr 09/16/23 09/16/23 09/16/23 18:28 18:29 18:46 MCV 74.5 L MCH 20.8 L MCHC 27.9 L RDW 17.6 H Plt Count 186 MPV 11.1 Immature Gran % (Auto) 0.3 Neut % (Auto) 81.4 H Lymph % (Auto) 9.3 L [place] % (Auto) 6.0 Eos % (Auto) 2.2 Baso % (Auto) 0.8 Lymph # (Auto) 0.7 L [place] # (Auto) 0.5 Eos # (Auto) 0.2 Baso # (Auto) 0.1 Abs Immat Gran (auto) 0.02 Absolute Neuts (auto) 6.4 Absolute Nucleated RBC 0.000 Nucleated RBC % (auto) 0.0 O2 Saturation 100.0 ABG pH at Pt Temp 7.43 ABG pCO2 at Pt Temp 37 ABG pO2 at Pt Temp 98 ABG HCO3 25 ABG Base Excess (Actual) 1.7 Anion Gap 17 Estim Creat Clear Calc 26.5 Estimated GFR 37 Random Glucose 204 H Lactic Acid 1.5 Calcium 9.3 Total Bilirubin 0.4 Direct Bilirubin 0.2 AST 14 ALT 7 Alkaline Phosphatase 75 Troponin I High Sens 12.3 D B-Natriuretic Peptide 3916 H Total Protein 6.6 Albumin 3.9 Lipase 17 Urine Color Urine Appearance Urine pH Ur Specific [place] Urine Protein Urine Glucose (UA) Urine Ketones Urine Blood Urine Nitrite Ur Leukocyte Esterase Urine RBC Urine WBC Ur Squamous Epith Cells Urine Bacteria Hyaline Casts Influenza Type A (PCR) NEGATIVE Influenza Type B (PCR) NEGATIVE RSV RNA Qual (PCR) NEGATIVE SARS-CoV-2 RNA (RT-PCR) NEGATIVE 09/16/23 09/17/23 21:36 06:46 MCV 73.6 L MCH 20.6 L MCHC 27.9 L RDW 17.4 H Plt Count 145 L MPV 10.8 Immature Gran % (Auto) 0.5 H Neut % (Auto) 89.3 H Lymph % (Auto) 6.6 L [place] % (Auto) 3.4 Eos % (Auto) 0.0 Baso % (Auto) 0.2 Lymph # (Auto) 0.3 L [place] # (Auto) 0.2 Eos # (Auto) 0.0 Baso # (Auto) 0.0 Abs Immat Gran (auto) 0.02 Absolute Neuts (auto) 3.9 Absolute Nucleated RBC 0.000 Nucleated RBC % (auto) 0.0 O2 Saturation ABG pH at Pt Temp ABG pCO2 at Pt Temp ABG pO2 at Pt Temp ABG HCO3 ABG Base Excess (Actual) Anion Gap 15 Estim Creat Clear Calc 28.4 Estimated GFR 42 Random Glucose 140 H Lactic Acid Calcium 8.4 D Total Bilirubin Direct Bilirubin AST ALT Alkaline Phosphatase Troponin I High Sens B-Natriuretic Peptide Total Protein Albumin Lipase Urine Color Yellow Urine Appearance Cloudy Urine pH 5.0 Ur Specific [place] 1.015 Urine Protein Negative Urine Glucose (UA) Negative Urine Ketones Negative Urine Blood Negative Urine Nitrite Positive H Ur Leukocyte Esterase Moderate (2+) H Urine RBC 0-2 Urine WBC 21-50 H Ur Squamous Epith Cells 6-10 Urine Bacteria 3+ Hyaline Casts >20 Influenza Type A (PCR) Influenza Type B (PCR) RSV RNA Qual (PCR) SARS-CoV-2 RNA (RT-PCR) Assessment and Plan (1) Acute exacerbation of chronic obstructive pulmonary disease: Status: Acute (2) CHF exacerbation: Status: Acute Plan A 83-year-old female with a pertinent history of congestive heart failure with reduced ejection fraction, severe mitral annular calcification with regurgitation, calcified aortic valve with moderate regurgitation, moderate tricuspid regurgitation, pulmonary hypertension, chronic hypoxic respiratory failure on 2 L supplemental oxygen, chronic kidney disease stage 3, hypertension, peripheral arterial disease, mixed hyperlipidemia, urinary retention dependent on self-catheterization, myasthenia gravis, gastroesophageal reflux disease, and a mood disorder presents to the emergency department for evaluation of dyspnea and found to have CHF exac Acute on chronic hypoxic respiratory failure due to acute exacerbation of congestive heart failure with reduced ejection fraction--improving -IV Lasix for 1more day and change to P -continue O2 per home protocol -cardiology input noted -continue BB, ARB -Monitor I/O, weight, low salt diet. Acute exacerbation of COPD also contributing to acute hypoxemic -continue inhalers, steroid, smoking cessation advised, O2 as above Chronic kidney disease stage 4: At baseline. Continue to monitor with diuresis Hypertension: continue atenolol, aldactone, lasix and losartan Mood disorder: On trazodone at bedtime and lorazepam p.r.n. Peripheral arterial disease/mixed hyperlipidemia: On statin Urinary retention: Self catheterization at home. Will insert [place] fluid management. Continue mirabegron DVT prophylaxis: Lovenox Full code need for inpt: IV Lasix for acute heart failure Quality Stroke Does the patient have a stroke diagnosis?: No VTE Prior VTE?: No VTE Risk Level:: Medical - moderate - high VTE Device Contraindication: Treatment Not Indicated VTE Drug Contraindication: N/A - Med Ordered
[2023-09-17] MEDS: Aspirin Enteric Coated 81 MG TABLET.DR PO (10:37)
[2023-09-17] MEDS: Cyanocobalamin (Vitamin B-12) 1,000 MCG TABLET 1000 MCG PO (10:37)
[2023-09-17] MEDS: Losartan Potassium 50 MG TABLET PO (10:37)
[2023-09-17] MEDS: Cholecalciferol (Vitamin D3) 25 MCG TABLET 50 MCG PO (10:37)
[2023-09-17] MEDS: atenoloL 50 MG TABLET PO ×2 (10:38→20:34)
[2023-09-17] MEDS: Mirabegron 50 MG TAB.ER.24H PO (10:38)
[2023-09-17] MEDS: Desmopressin Acetate 0.2 MG TABLET PO (10:38)
[2023-09-17] MEDS: Omeprazole 20 MG CAPSULE.DR PO (10:42)
[2023-09-17] MEDS: Spironolactone 25 MG TABLET PO (10:42)
--- NOTE | 2023-09-17 11:05 | P.CONCA_ITS ---
History of Present Illness History of Present Illness Date of Service: 09/17/23 Requesting physician: [facility] Consult reason: congestive heart failure Chief complaint: Dyspnea Narrative: I was consulted to see Earnestine in cardiology consultation today for acute onset congestive heart failure. She has extensive prior cardiac history and is not very amenable to providing history and is very irritable. Patient came to the hospital as she said with gradually progressive but quick onset shortness of breath which was not improving. She is on oxygen at home but mostly at nighttime for COPD. She said despite the oxygen she continues to be short of breath came to the emergency room she was noted to be hypoxic with oxygen saturation in the 80s on her usual oxygen. She was then quickly treated with BiPAP and increase oxygen and improved clinically. She was also gently diurese. Overall however negative balance appears to be only negative to 80. BNP on admission in the 3000 range. EKG did not show any significant acute ischemic changes compared to prior EKG. Troponins are within normal limits. She has prior echocardiogram recently at [facility] which showed LV ejection fraction of 30 35% with findings consistent with ischemic cardiomyopathy, mild aortic stenosis and moderate aortic regurgitation and only mild reported mitral regurgitation with elevated right ventricular systolic pressure. 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 She is extensive history of peripheral vascular disease, chronic kidney disease, urinary retention dependent on self catheterization, hyperlipidemia, myasthenia gravis, acid reflux disease, mood disorder. Patient appears much more comfortable and says she is breathing much improved compared to when she came in yesterday. She denied any chest pain. Denies any prolonged palpitation irregular heartbeat. Denies any significant weight gain and has not had any significant intake of salt. She has been taking all her medications regularly. She has multiple recent hospitalization for decompensated congestive heart failure. She does have a CardioMEMS device. Not sure as to what her yesterday's reading was as this is followed by an outpatient cardiology group. Her losartan was on hold after recent hospitalization due to acute kidney injury. Her creatinine in his improved marginally since admission Review of Systems 2 Constitutional: Constitutional: Reports no additional constitutional complaints, Denies chills and Denies fever(s) Cardiovascular: Cardiovascular: Denies Abdominal Distension, Denies chest pain, Denies leg edema, Denies lightheadedness, Denies Loss of Consciousness, Denies palpitations and Reports dyspnea on exertion Respiratory: Respiratory: Reports no additional respiratory complaints and Reports dyspnea on exertion Gastrointestinal: Gastrointestinal: Reports no additional gastrointestinal complaints Genitourinary: Genitourinary: Reports no additional female genitourinary complaints Psychiatric: Psychiatric: Reports no additional psychiatric complaints Endocrine: Endocrine: Reports no additional endocrine complaints and Denies palpitations PMF Past Medical History Medical History Peripheral artery disease Myasthenia gravis Hypertension Urinary retention AAA (abdominal aortic aneurysm) Moderate to severe aortic valve regurgitation Heart failure with reduced ejection fraction Cigarette smoker Asthma-COPD overlap syndrome Social History Social History Household Members: Spouse Housing: House Do you presently have visiting nurse or other home services: No Patient Tobacco Use Status: Current everyday Tobacco user Tobacco use type: Cigarette e-Cigarette/Vaping Use: Never Used service: No Meds Allergies Allergy/AdvReac Type Severity Reaction Status Date / Time SARI Inhibitors Allergy Unknown ANGIOEDEMA Verified 09/16/23 18:09 [SARI INHIBITORS] Active Medications: Current Medications Acetaminophen (Acetaminophen 325 Mg Tablet) 650 mg PO Q6H PRN PRN Reason: Pain, Mild (Pain Scale 1-3), fever or headache Albuterol/Ipratropium (Albuterol/Iprat 2.5/0.5mg 3 Ml Ampul.Neb) 3 ml INHALE RQ4H WHILE AWAKE [facility] Last Admin: 09/17/23 08:09 Dose: 3 ml Albuterol/Ipratropium (Albuterol/Iprat 2.5/0.5mg 3 Ml Ampul.Neb) 3 ml INHALE Q4H PRN PRN Reason: Wheezing Aspirin (Aspirin Enteric Coated 81 Mg Tablet.) 81 mg PO DAILY [facility] Last Admin: 09/17/23 10:37 Dose: 81 mg Atenolol (Atenolol 50 Mg Tablet) 50 mg PO BID [facility]; Protocol Last Admin: 09/17/23 10:38 Dose: 50 mg Atorvastatin Calcium (Atorvastatin Calcium 80 Mg Tablet) 80 mg PO DAILY [facility] Benzonatate (Benzonatate 100 Mg Capsule) 100 mg PO TID PRN PRN Reason: Cough Budesonide (Budesonide 0.5 Mg/2 Ml Ampul.Neb) 0.5 mg INHALE BID [facility] Calcium Carbonate (Calcium Carbonate 750 Mg Tab.Chew) 750 mg PO Q4H PRN PRN Reason: Heartburn Cyanocobalamin (Cyanocobalamin (Vitamin B-12) 1,000 Mcg Tablet) 1,000 mcg PO DAILY [facility] Last Admin: 09/17/23 10:37 Dose: 1,000 mcg Desmopressin Acetate (Desmopressin Acetate 0.2 Mg Tablet) 0.2 mg PO DAILY [facility] Last Admin: 09/17/23 10:38 Dose: 0.2 mg Doxazosin Mesylate (Doxazosin Mesylate 2 Mg Tablet) 16 mg PO BEDTIME ZENAIDA Enoxaparin Sodium (Enoxaparin Sodium 30 Mg/0.3 Ml Syringe) 30 mg SUBCUT Q24H [facility] Last Admin: 09/16/23 20:10 Dose: Not Given Furosemide (Furosemide 40 Mg/4 Ml Vial) 40 mg IVPUSH BID@0900,1800 [facility]; Protocol Last Admin: 09/17/23 07:48 Dose: 40 mg Furosemide (Furosemide 40 Mg Tablet) 40 mg PO BID [facility]; Protocol Lorazepam (Lorazepam 1 Mg Tablet) 1 mg PO ONCE PRN PRN Reason: anxiety/restlessness Losartan Potassium (Losartan Potassium 50 Mg Tablet) 50 mg PO DAILY [facility]; Protocol Last Admin: 09/17/23 10:37 Dose: 50 mg Magnesium Hydroxide (Milk Of Magnesia 30 Ml Oral.Susp) 30 ml PO DAILY PRN PRN Reason: Constipation Melatonin (Melatonin 3 Mg Tablet) 6 mg PO BEDTIME PRN PRN Reason: Insomnia Methylprednisolone Sodium Succinate (Methylprednisolone Sod Succ 40 Mg/Ml Vial) 40 mg IVPUSH Q12H [facility] Last Admin: 09/17/23 07:48 Dose: 40 mg Mirabegron (Mirabegron 50 Mg Tab.Er.24h) 50 mg PO DAILY [facility] Last Admin: 09/17/23 10:38 Dose: 50 mg Omeprazole (Omeprazole 20 Mg Capsule.Dr) 20 mg PO BID@0630,1830 PRN PRN Reason: Heartburn Last Admin: 09/17/23 10:42 Dose: 20 mg Ondansetron HCl (Ondansetron Hcl 4 Mg/2 Ml Vial) 4 mg IVPUSH Q8H PRN PRN Reason: Nausea and Vomiting Oxcarbazepine (Oxcarbazepine 300 Mg Tablet) 600 mg PO BEDTIME ZENAIDA Spironolactone (Spironolactone 25 Mg Tablet) 25 mg PO DAILY [facility]; Protocol Last Admin: 09/17/23 10:42 Dose: 25 mg Trazodone HCl (Trazodone Hcl 100 Mg Tablet) 100 mg PO BEDTIME [facility] Vitamin D (Cholecalciferol (Vitamin D3) 25 Mcg Tablet) 50 mcg PO DAILY [facility] Last Admin: 09/17/23 10:37 Dose: 50 mcg Home Medications ?Medication ?Instructions ?Recorded ?Confirmed ?Last Taken ?Type atenolol 50 mg tablet 50 mg PO BID 08/11/23 09/17/23 09/16/23 09:00 History budesonide 0.5 mg/2 mL suspension 0.5 mg inhalation BID 08/11/23 09/17/23 09/16/23 09:00 History for nebulization furosemide 20 mg tablet 40 mg PO BID 08/11/23 09/17/23 09/16/23 09:00 History ipratropium 0.5 mg-albuterol 3 mg 3 ml inhalation QID 08/11/23 09/17/23 Unknown History (2.5 mg base)/3 mL nebulization soln losartan 50 mg tablet 50 mg PO DAILY 08/11/23 09/17/23 09/16/23 09:00 History mirabegron 50 mg tablet,extended 50 mg PO DAILY 08/11/23 09/17/23 09/16/23 09:00 History release 24 hr omeprazole 40 mg capsule,delayed 20 mg PO BID PRN Heartburn 08/11/23 09/17/23 Unknown History release oxcarbazepine 600 mg tablet 600 mg PO BEDTIME 08/11/23 09/17/23 09/16/23 09:00 History rosuvastatin 20 mg tablet 20 mg PO DAILY 08/11/23 09/17/23 09/16/23 09:00 History terazosin 10 mg capsule 20 mg PO BEDTIME 08/11/23 09/17/23 09/16/23 09:00 History trazodone 100 mg tablet 100 mg PO BEDTIME 08/11/23 09/17/23 09/16/23 09:00 History cholecalciferol (vitamin D3) 25 50 mcg PO DAILY 07/09/17/23 09/16/23 09:00 History mcg (1,000 unit) capsule desmopressin 0.2 mg tablet 0.2 mg PO DAILY 09/16/23 09/17/23 09/16/23 09:00 History spironolactone 25 mg tablet 25 mg PO DAILY 09/16/23 09/17/23 09/16/23 09:00 History aspirin 81 mg tablet,delayed 81 mg PO DAILY 09/17/23 09/17/23 09/16/23 09:00 History release cyanocobalamin (vitamin B-12) 1,000 mcg PO DAILY 09/17/23 09/17/23 09/16/23 09:00 History 1,000 mcg tablet Physical Exam 2 Vital Signs: Vital Signs: Last Vital Signs Temp 96.8 F 09/17/23 07:42 Pulse 65 09/17/23 08:13 Resp 16 09/17/23 08:13 BP 136/65 09/17/23 10:42 Pulse Ox 98 09/17/23 07:42 O2 Del Method Nasal Cannula 09/17/23 07:42 O2 Flow Rate 3 09/17/23 07:42 Oxygen Flow Rate 6 09/16/23 18:05 BMI result Body Mass Index 19.9 Const: General: cooperative, comfortable, alert, awake and other (Irritable) Nutritional Appearance: thin and other (Frail appearing) O rientation/consciousness: patient oriented x3 HEENT: Head: Yes normocephalic and Yes atraumatic Neck: Neck: Yes trachea midline, Yes supple and Yes no JVD Resp: Effort & Inspection: normal respiratory effort Auscultation: clear to auscultation bilaterally Cardio: Jugular venous distension: no JVD Palpation: abnormal PMI displaced PMI Rate: regular rate Rhythm: regular rhythm Heart sounds: S1 normal heart sound present, S2 normal heart sound present, no click, no gallops and Murmur heart sound present systolic holo and at the apex GI: Auscultation: normal bowel sounds Skin: General skin exam: no rashes or lesions noted and ecchymosis Neuro: General: patient oriented x3 and no focal motor deficits Extrem: General: Yes no clubbing, cyanosis or edema Objective Labs and Meds 09/17/23 06:46 09/17/23 06:46 Lab results: Laboratory Results - last 24 hr 09/16/23 09/16/23 09/16/23 18:28 18:29 18:46 WBC 7.8 RBC 4.04 L Hgb 8.4 L Hct 30.1 L MCV 74.5 L MCH 20.8 L MCHC 27.9 L RDW 17.6 H Plt Count 186 MPV 11.1 Immature Gran % (Auto) 0.3 Neut % (Auto) 81.4 H Lymph % (Auto) 9.3 L [place] % (Auto) 6.0 Eos % (Auto) 2.2 Baso % (Auto) 0.8 Lymph # (Auto) 0.7 L [place] # (Auto) 0.5 Eos # (Auto) 0.2 Baso # (Auto) 0.1 Abs Immat Gran (auto) 0.02 Absolute Neuts (auto) 6.4 Absolute Nucleated RBC 0.000 Nucleated RBC % (auto) 0.0 O2 Saturation 100.0 ABG pH at Pt Temp 7.43 ABG pCO2 at Pt Temp 37 ABG pO2 at Pt Temp 98 ABG HCO3 25 ABG Base Excess (Actual) 1.7 Sodium 139 Potassium 4.7 Chloride 102 Carbon Dioxide 25 Anion Gap 17 BUN 27 H Creatinine 1.36 Estim Creat Clear Calc 26.5 Estimated GFR 37 Random Glucose 204 H Lactic Acid 1.5 Calcium 9.3 Total Bilirubin 0.4 Direct Bilirubin 0.2 AST 14 ALT 7 Alkaline Phosphatase 75 Troponin I High Sens 12.3 D B-Natriuretic Peptide 3916 H Total Protein 6.6 Albumin 3.9 Lipase 17 Urine Color Urine Appearance Urine pH Ur Specific [place] Urine Protein Urine Glucose (UA) Urine Ketones Urine Blood Urine Nitrite Ur Leukocyte Esterase Urine RBC Urine WBC Ur Squamous Epith Cells Urine Bacteria Hyaline Casts Influenza Type A (PCR) NEGATIVE Influenza Type B (PCR) NEGATIVE RSV RNA Qual (PCR) NEGATIVE SARS-CoV-2 RNA (RT-PCR) NEGATIVE 09/16/23 09/17/23 21:36 06:46 WBC 4.4 L RBC 3.60 L Hgb 7.4 L Hct 26.5 L MCV 73.6 L MCH 20.6 L MCHC 27.9 L RDW 17.4 H Plt Count 145 L MPV 10.8 Immature Gran % (Auto) 0.5 H Neut % (Auto) 89.3 H Lymph % (Auto) 6.6 L [place] % (Auto) 3.4 Eos % (Auto) 0.0 Baso % (Auto) 0.2 Lymph # (Auto) 0.3 L [place] # (Auto) 0.2 Eos # (Auto) 0.0 Baso # (Auto) 0.0 Abs Immat Gran (auto) 0.02 Absolute Neuts (auto) 3.9 Absolute Nucleated RBC 0.000 Nucleated RBC % (auto) 0.0 O2 Saturation ABG pH at Pt Temp ABG pCO2 at Pt Temp ABG pO2 at Pt Temp ABG HCO3 ABG Base Excess (Actual) Sodium 140 Potassium 4.3 Chloride 107 Carbon Dioxide 22 Anion Gap 15 BUN 26 H Creatinine 1.22 Estim Creat Clear Calc 28.4 Estimated GFR 42 Random Glucose 140 H Lactic Acid Calcium 8.4 D Total Bilirubin Direct Bilirubin AST ALT Alkaline Phosphatase Troponin I High Sens B-Natriuretic Peptide Total Protein Albumin Lipase Urine Color Yellow Urine Appearance Cloudy Urine pH 5.0 Ur Specific Sterling 1.015 Urine Protein Negative Urine Glucose (UA) Negative Urine Ketones Negative Urine Blood Negative Urine Nitrite Positive H Ur Leukocyte Esterase Moderate (2+) H Urine RBC 0-2 Urine WBC 21-50 H Ur Squamous Epith Cells 6-10 Urine Bacteria 3+ Hyaline Casts >20 Influenza Type A (PCR) Influenza Type B (PCR) RSV RNA Qual (PCR) SARS-CoV-2 RNA (RT-PCR) Imaging Radiologist's impression: Impressions Chest X-Ray 09/16/23 18:50 IMPRESSION: Extensive chronic appearing changes better delineated on the prior CT scan. There is central vascular prominence which may reflect component of underlying pulmonary arterial hypertension although component of pulmonary edema cannot be excluded in this setting. Assessment and Plan (1) CHF exacerbation: Status: Acute Acute congestive heart failure most likely ischemic in etiology given her advanced 2 vessel coronary artery disease that is non revascularization. Question renal artery stenosis. Patient has responded well to therapy with much improved breathing and oxygen requirement has reduced. Continue IV diuresis for 1 more day. Continue neurohormonal modulation with spironolactone, atenolol, would consider switching to carvedilol therapy. Will also consider starting on low-dose Entresto therapy given his moderately severe LV systolic dysfunction. It seems like by last echocardiogram that her mitral regurgitation was only mild although clinically appears to be much more significant. Will need follow-up with her own broom stitcher as outpatient. She is multiple comorbidities including advanced age, frailty, chronic kidney disease, COPD with chronic respiratory failure. Continue symptomatic management. Once clinically improved can follow-up with her own broom stitcher. Overall prognosis is guarded. Will follow with you Procedures Date of Service Date of Service: 09/17/23
[2023-09-17] MEDS: Budesonide 0.5 MG/2 ML AMPUL.NEB INHALE ×2 (11:36→19:33)
[2023-09-17] MEDS: cefTRIAXone sodium 1 GM in 0.9 % Sodium Chloride 50 ML IV (17:24)
[2023-09-17] MEDS: traZODone HCL 100 MG TABLET PO (20:34)
[2023-09-17] MEDS: Doxazosin Mesylate 2 MG TABLET 16 MG PO (20:35)
[2023-09-17] MEDS: Calcium Carbonate 750 MG TAB.CHEW PO (20:35)
[2023-09-17] MEDS: OXcarbazepine 300 MG TABLET 600 MG PO (20:35)
[2023-09-17] MEDS: LORazepam 1 MG TABLET PO (20:35)
[2023-09-17] MEDS: Enoxaparin Sodium 30 MG/0.3 ML SYRINGE SUBCUT (20:37)
--- NOTE | 2023-09-17 23:21 | PC.NURSE ---
Assumed care of patient at 19:00. Pt refused scheduled lasix despite education. Please see shift assessments, MAR, and tasks for full details Handoff report given to oncoming RN at 23:15.
[2023-09-18] VITALS (9 sets, daily range): BP systolic 110–147; BP diastolic 54–65; PULSE 61–73; RESP 14–18; TEMP 36.1–36.8; O2SAT 94–97
[2023-09-18] MEDS: cefTRIAXone sodium 1 GM in 0.9 % Sodium Chloride 50 ML IV ×2 (05:16→17:34)
[2023-09-18 07:35] LABS: Anion Gap 15 (12-20); Blood Urea Nitrogen 39 mg/dL (9-16); Calcium 8.2 mg/dL (8.4-10.2); Carbon Dioxide 23 mmol/L (22-29); Chloride 104 mmol/L (96-108); Creatinine Clr Calc Pharmacy 30.4; Estimated Glomerular Filt Rate 45; Glucose Random 133 mg/dL (60-115); Potassium 4.7 mmol/L (3.3-5.1); Sodium 137 mmol/L (135-145)
[2023-09-18 07:48] LABS: B Type Natriuretic Peptide 4643 pg/mL (<100)
[2023-09-18] MEDS: Atorvastatin Calcium 80 MG TABLET PO (07:54)
[2023-09-18] MEDS: Desmopressin Acetate 0.2 MG TABLET PO (07:54)
[2023-09-18] MEDS: methylPREDNISolone Sod Succ 40 MG/ML VIAL IVPUSH ×2 (07:54→19:34)
[2023-09-18] MEDS: Cholecalciferol (Vitamin D3) 25 MCG TABLET 50 MCG PO (07:54)
[2023-09-18] MEDS: Aspirin Enteric Coated 81 MG TABLET.DR PO (07:55)
[2023-09-18] MEDS: Losartan Potassium 50 MG TABLET PO (07:55)
[2023-09-18] MEDS: atenoloL 50 MG TABLET PO ×2 (07:56→19:38)
[2023-09-18] MEDS: Mirabegron 50 MG TAB.ER.24H PO (07:56)
[2023-09-18] MEDS: Spironolactone 25 MG TABLET PO (07:56)
[2023-09-18] MEDS: Furosemide 40 MG TABLET PO (07:57)
[2023-09-18] MEDS: Cyanocobalamin (Vitamin B-12) 1,000 MCG TABLET 1000 MCG PO (07:57)
[2023-09-18] MEDS: Budesonide 0.5 MG/2 ML AMPUL.NEB INHALE (08:12)
[2023-09-18] MEDS: Albuterol/Iprat 2.5/0.5MG 3 ML AMPUL.NEB INHALE ×3 (08:12→15:22)
--- NOTE | 2023-09-18 10:16 | HO.PM.IMPN ---
Subjective Subjective Date of Service: 09/18/23 Interval History: f/u on copd and chf exacerbation breathing is ok, still with sings of fluid overload. BNP going up Physical Exam Vital Signs: Vital Signs: Last Vital Signs Temp 97.0 F 09/18/23 07:14 Pulse 62 09/18/23 08:14 Resp 14 09/18/23 08:14 BP 124/61 09/18/23 07:14 Pulse Ox 95 09/18/23 07:14 O2 Del Method Room Air 09/18/23 07:14 O2 Flow Rate 2 09/18/23 03:27 Oxygen Flow Rate 6 09/16/23 18:05 BMI result Body Mass Index 19.9 General: AO X 3, no acute distress Resp: dimished bilaterally CVS: S1,S2,RRR, no leg edema GI: +BS, NT, no distention Skin: No rash Neuro: motor grossly intact Psych: appropriate affect Objective Data Active Medications Acetaminophen (Acetaminophen 325 Mg Tablet) 650 mg PO Q6H PRN PRN Reason: Pain, Mild (Pain Scale 1-3), fever or headache Albuterol/Ipratropium (Albuterol/Iprat 2.5/0.5mg 3 Ml Ampul.Neb) 3 ml INHALE RQ4H WHILE AWAKE [facility] Last Admin: 09/18/23 08:12 Dose: 3 ml Documented By: ESTEFANIA Albuterol/Ipratropium (Albuterol/Iprat 2.5/0.5mg 3 Ml Ampul.Neb) 3 ml INHALE Q4H PRN PRN Reason: Wheezing Aspirin (Aspirin Enteric Coated 81 Mg Tablet.) 81 mg PO DAILY [facility] Last Admin: 09/18/23 07:55 Dose: 81 mg Documented By: LAWRENCE Atenolol (Atenolol 50 Mg Tablet) 50 mg PO BID [facility]; Protocol Last Admin: 09/18/23 07:56 Dose: 50 mg Documented By: LAWRENCE Atorvastatin Calcium (Atorvastatin Calcium 80 Mg Tablet) 80 mg PO DAILY [facility] Last Admin: 09/18/23 07:54 Dose: 80 mg Documented By: LAWRENCE Benzonatate (Benzonatate 100 Mg Capsule) 100 mg PO TID PRN PRN Reason: Cough Budesonide (Budesonide 0.5 Mg/2 Ml Ampul.Neb) 0.5 mg INHALE BID [facility] Last Admin: 09/18/23 08:12 Dose: 0.5 mg Documented By: ESTEFANIA Calcium Carbonate (Calcium Carbonate 750 Mg Tab.Chew) 750 mg PO Q4H PRN PRN Reason: Heartburn Last Admin: 09/17/23 20:35 Dose: 750 mg Documented By: JCARLOS Cyanocobalamin (Cyanocobalamin (Vitamin B-12) 1,000 Mcg Tablet) 1,000 mcg PO DAILY [facility] Last Admin: 09/18/23 07:57 Dose: 1,000 mcg Documented By: LAWRENCE Desmopressin Acetate (Desmopressin Acetate 0.2 Mg Tablet) 0.2 mg PO DAILY [facility] Last Admin: 09/18/23 07:54 Dose: 0.2 mg Documented By: LAWRENCE Doxazosin Mesylate (Doxazosin Mesylate 2 Mg Tablet) 16 mg PO BEDTIME [facility] Last Admin: 09/17/23 20:35 Dose: 16 mg Documented By: JCARLOS Enoxaparin Sodium (Enoxaparin Sodium 30 Mg/0.3 Ml Syringe) 30 mg SUBCUT Q24H [facility] Last Admin: 09/17/23 20:37 Dose: 30 mg Documented By: JCARLOS Furosemide (Furosemide 40 Mg/4 Ml Vial) 40 mg IVPUSH BID@0900,1800 [facility]; Protocol Furosemide (Furosemide 20 Mg/2 Ml Vial) 20 mg IVPUSH ONCE ONE; Protocol Stop: 09/18/23 10:15 Ceftriaxone Sodium 1 gm/ (Sodium Chloride) 50 mls @ 100 mls/hr IV Q12H [facility] Last Infusion: 09/18/23 05:49 Dose: Infused Documented By: MADONNA Lorazepam (Lorazepam 1 Mg Tablet) 1 mg PO ONCE PRN PRN Reason: anxiety/restlessness Last Admin: 09/17/23 20:35 Dose: 1 mg Documented By: CJARLOS Magnesium Hydroxide (Milk Of Magnesia 30 Ml Oral.Susp) 30 ml PO DAILY PRN PRN Reason: Constipation Melatonin (Melatonin 3 Mg Tablet) 6 mg PO BEDTIME PRN PRN Reason: Insomnia Methylprednisolone Sodium Succinate (Methylprednisolone Sod Succ 40 Mg/Ml Vial) 40 mg IVPUSH Q12H [facility] Last Admin: 09/18/23 07:54 Dose: 40 mg Documented By: LAWRENCE Mirabegron (Mirabegron 50 Mg Tab.Er.24h) 50 mg PO DAILY [facility] Last Admin: 09/18/23 07:56 Dose: 50 mg Documented By: LAWRENCE Omeprazole (Omeprazole 20 Mg Capsule.Dr) 20 mg PO BID@0630,1830 PRN PRN Reason: Heartburn Last Admin: 09/17/23 10:42 Dose: 20 mg Documented By: RUPINDER Ondansetron HCl (Ondansetron Hcl 4 Mg/2 Ml Vial) 4 mg IVPUSH Q8H PRN PRN Reason: Nausea and Vomiting Oxcarbazepine (Oxcarbazepine 300 Mg Tablet) 600 mg PO BEDTIME [facility] Last Admin: 09/17/23 20:35 Dose: 600 mg Documented By: JCARLOS Spironolactone (Spironolactone 25 Mg Tablet) 25 mg PO DAILY [facility]; Protocol Last Admin: 09/18/23 07:56 Dose: 25 mg Documented By: LAWRENCE Trazodone HCl (Trazodone Hcl 100 Mg Tablet) 100 mg PO BEDTIME [facility] Last Admin: 09/17/23 20:34 Dose: 100 mg Documented By: JCARLOS Vitamin D (Cholecalciferol (Vitamin D3) 25 Mcg Tablet) 50 mcg PO DAILY [facility] Last Admin: 09/18/23 07:54 Dose: 50 mcg Documented By: LAWRENCE Labs 09/17/23 06:46 09/18/23 07:17 Labs: Laboratory Results - last 24 hr 09/18/23 07:17 Anion Gap 15 Estim Creat Clear Calc 30.4 Estimated GFR 45 Random Glucose 133 H Calcium 8.2 L B-Natriuretic Peptide 4643 H Microbiology Microbiology Results: Microbiology 09/16/23 18:28 Blood Culture - Preliminary Blood - Venous No growth after 24 hours. 09/16/23 18:30 Blood Culture - Preliminary Blood - Venous No growth after 24 hours. 09/16/23 22:08 Urine Culture - Preliminary Urine clean catch - Clean Catch Midstream Gram negative law Assessment and Plan (1) Acute exacerbation of chronic obstructive pulmonary disease: Status: Acute (2) CHF exacerbation: Status: Acute Plan A 83-year-old female with a pertinent history of congestive heart failure with reduced ejection fraction, severe mitral annular calcification with regurgitation, calcified aortic valve with moderate regurgitation, moderate tricuspid regurgitation, pulmonary hypertension, chronic hypoxic respiratory failure on 2 L supplemental oxygen, chronic kidney disease stage 3, hypertension, peripheral arterial disease, mixed hyperlipidemia, urinary retention dependent on self-catheterization, myasthenia gravis, gastroesophageal reflux disease, and a mood disorder presents to the emergency department for evaluation of dyspnea and found to have CHF exac Acute on chronic hypoxic respiratory failure due to acute exacerbation of congestive heart failure with reduced ejection fraction--remains decompensated with increasing BNP -continue IV Lasix at 40 bid -continue O2 per home protocol -cardiology input noted -continue BB, stop Losartan and add Entresto starting tonight -Monitor I/O, weight, low salt diet. Acute exacerbation of COPD also contributing to acute hypoxemic -continue inhalers, steroid, smoking cessation advised, O2 as above Chronic kidney disease stage 4: At baseline. Continue to monitor with diuresis Hypertension: continue atenolol, aldactone, lasix and losartan (changing to Entresto) Mood disorder: On trazodone at bedtime and lorazepam p.r.n. Peripheral arterial disease/mixed hyperlipidemia: On statin Urinary retention: Self catheterization at home. Will insert Odell fluid management. Continue mirabegron DVT prophylaxis: Lovenox Full code need for inpt: IV Lasix for acute heart failure Quality Stroke Does the patient have a stroke diagnosis?: No VTE Prior VTE?: No VTE Risk Level:: Medical - moderate - high VTE Device Contraindication: Treatment Not Indicated VTE Drug Contraindication: N/A - Med Ordered
[2023-09-18] MEDS: Furosemide 20 MG/2 ML VIAL IVPUSH (10:36)
--- NOTE | 2023-09-18 10:57 | P.CDIM_ITS ---
PROVIDER RESPONSE TEXT: To clarify, the appropriate diagnosis supported by the clinical indicators: CKD Stage 3 QUERY TEXT: PHYSICIAN'S DOCUMENTATION REQUEST Date of Query: 09/18/2023 10:07 AM EDT Patient Name: Earnestine Eason Admit Date: 09/16/2023 Dear Malcolm Rebolledo MD, A review of the medical record indicates additional documentation may be needed. Please review below and update the documentation accordingly. Clinical Indicators: H&P 09/15 - Chronic kidney disease Stage 3, at baseline Progress note 09/16 - Chronic kidney disease Stage 4, at baseline. Continue to monitor with diuresis. CKD Stage 3 CKD Stage 4 Other (explain) Clinically unable to determine (explain) Thank you, Estrellita Castellanos, CCS, CDIS Use of terms such as suspected, likely, concern for, or probable (associated with a specific diagnosi s that is being evaluated, monitored, or treated as if it exists) are acceptable and can be coded in the inpatient se tting, when documented at the time of discharge. Please use your independent medical judgment in providing your response. THIS QUERY IS PART OF THE PERMANENT MEDICAL RECORD
--- NOTE | 2023-09-18 11:20 | PM.PNCARD ---
Subjective Subjective Date of Service: 09/18/23 Principal diagnosis: Shortness of breath, CHF. Interval history: Patient says she intermittently still short of breath. BNP is further elevated in the 4000 range. Renal function is stable and/or improved. Patient has been getting all her medications. She denies any palpitations. Denies any significant leg swelling. Review of Systems Constitutional: Reports no additional constitutional complaints Cardiovascular: Denies chest pain, Denies leg edema, Denies lightheadedness, Denies Loss of Consciousness, Denies palpitations and Reports dyspnea Respiratory: Denies no additional respiratory complaints and Reports dyspnea Gastrointestinal: Denies no additional gastrointestinal complaints Musculoskeletal: Denies no additional musculoskeletal complaints Skin/Breast: Denies system reviewed and no additional complaints, except as docu Endocrine: Denies palpitations Physical Exam Vital Signs: Last Vital Signs Temp 97.0 F 09/18/23 07:14 Pulse 62 09/18/23 08:14 Resp 14 09/18/23 08:14 BP 110/54 L 09/18/23 10:36 Pulse Ox 95 09/18/23 07:14 O2 Del Method Room Air 09/18/23 07:14 O2 Flow Rate 2 09/18/23 03:27 Oxygen Flow Rate 6 09/16/23 18:05 BMI result Body Mass Index 19.9 Const General: cooperative, comfortable, alert, awake and other (Irritable) Nutritional Appearance: thin and other (Frail appearing) Orientation/consciousness: patient oriented x3 HEENT Head: Yes normocephalic and Yes atraumatic Neck Neck: Yes trachea midline, Yes supple and Yes no JVD Resp Effort & Inspection: normal respiratory effort Auscultation: crackles Cardio Jugular venous distension: no JVD Palpation: abnormal PMI displaced PMI Rate: regular rate Rhythm: regular rhythm Heart sounds: S1 normal heart sound present, S2 normal heart sound present, no click, no gallops and Murmur heart sound present systolic holo and at the apex GI Auscultation: normal bowel sounds Skin General skin exam: no rashes or lesions noted and ecchymosis Neuro General: patient oriented x3 and no focal motor deficits Extrem General: Yes no clubbing, cyanosis or edema Objective Labs and Meds 09/17/23 06:46 09/18/23 07:17 Lab results: Laboratory Results - last 24 hr 09/18/23 07:17 Sodium 137 Potassium 4.7 Chloride 104 Carbon Dioxide 23 Anion Gap 15 BUN 39 H Creatinine 1.14 Estim Creat Clear Calc 30.4 Estimated GFR 45 Random Glucose 133 H Calcium 8.2 L B-Natriuretic Peptide 4643 H Progress Note: A&P Assessment and plan (1) CHF exacerbation: Status: Acute Assessment and Plan: Patient still symptomatic and has worsening BNP and clinically she has crackles at lung base. I will continue IV diuresis with Lasix 40 mg IV push b.i.d.. Patient is not happy and wants to go home although I discussed that she would be high risk for recurrent hospitalization if we do not treat heart failure aggressively. I have also advised to switch her losartan to Entresto therapy if she can tolerate. Will monitor blood pressure closely. Also switch atenolol to carvedilol therapy. Given her low hematocrit also would consider transfusing 1 unit of packed RBCs. Strict intake and output chart needs to be pursued. Continue spironolactone therapy. Overall prognosis is guarded given her multiple comorbidities. Will continue to follow with you Time Spent With Patient Time: Total time managing care of this patient today ____ minutes. Progress Note: Quality Stroke Does the patient have a stroke diagnosis?: No Procedures Date of Service Date of Service: 09/18/23
--- NOTE | 2023-09-18 11:35 | MHC.CM.PN ---
PER REVIEW OF CARDIOLOGY NOTE, LIKELY THAT PATIENT WILL REMAIN TODAY. PATIENT REMAINS INTERMITTENTLY SOB AND ELEVATED BNP. CASE MANAGEMENT FOLLOWING PLAN WILL BE HOME WITH [facility] FOR HOME O2. IT IS UNCLEAR AT THIS TIME IF PATIENT WILL REQUIRE A TANK TO TRANSPORT HOME WITH.
[2023-09-18] MEDS: Omeprazole 20 MG CAPSULE.DR PO (15:10)
[2023-09-18] MEDS: Furosemide 40 MG/4 ML VIAL IVPUSH (17:32)
[2023-09-18] MEDS: Doxazosin Mesylate 2 MG TABLET 16 MG PO (19:34)
[2023-09-18] MEDS: Enoxaparin Sodium 30 MG/0.3 ML SYRINGE SUBCUT (19:34)
[2023-09-18] MEDS: OXcarbazepine 300 MG TABLET 600 MG PO (19:35)
[2023-09-18] MEDS: traZODone HCL 100 MG TABLET PO (19:35)
[2023-09-19] VITALS (11 sets, daily range): BP systolic 120–152; BP diastolic 54–63; PULSE 61–80; RESP 16–23; TEMP 35.9–37; O2SAT 95–99
[2023-09-19] MEDS: cefTRIAXone sodium 1 GM in 0.9 % Sodium Chloride 50 ML IV (05:29)
[2023-09-19 07:04] LABS: Anion Gap 16 (12-20); Blood Urea Nitrogen 46 mg/dL (9-16); Calcium 8.4 mg/dL (8.4-10.2); Carbon Dioxide 24 mmol/L (22-29); Chloride 104 mmol/L (96-108); Creatinine Clr Calc Pharmacy 24.4; Estimated Glomerular Filt Rate 35; Glucose Random 159 mg/dL (60-115); Potassium 4.4 mmol/L (3.3-5.1); Sodium 140 mmol/L (135-145)
[2023-09-19] MEDS: Mirabegron 50 MG TAB.ER.24H PO (07:48)
[2023-09-19] MEDS: methylPREDNISolone Sod Succ 40 MG/ML VIAL IVPUSH (07:48)
[2023-09-19] MEDS: Desmopressin Acetate 0.2 MG TABLET PO (07:48)
[2023-09-19] MEDS: Cholecalciferol (Vitamin D3) 25 MCG TABLET 50 MCG PO (07:49)
[2023-09-19] MEDS: Aspirin Enteric Coated 81 MG TABLET.DR PO (07:49)
[2023-09-19] MEDS: Spironolactone 25 MG TABLET PO (07:49)
[2023-09-19] MEDS: Atorvastatin Calcium 80 MG TABLET PO (07:49)
[2023-09-19] MEDS: atenoloL 50 MG TABLET PO (07:50)
[2023-09-19] MEDS: Cyanocobalamin (Vitamin B-12) 1,000 MCG TABLET 1000 MCG PO (07:50)
[2023-09-19 07:53] LABS: B Type Natriuretic Peptide 9494 pg/mL (<100)
[2023-09-19 08:14] LABS: Hematocrit 27.7 % (37.0-47.0); Hemoglobin 7.8 g/dl (12.0-16.0); Mean Corpuscular HGB Conc 28.2 g/dl (31.0-35.0); Mean Corpuscular Hemoglobin 20.6 pg (27.0-33.0); Mean Corpuscular Volume 73.3 fL (80.0-98.0); Mean Platelet Volume 10.5 fL (9.4-12.3); Platelet Count 184 X10*3/uL (160-400); Red Blood Count 3.78 X10*6/uL (4.20-5.50); Red Cell Distribution Width 17.4 % (11.0-16.0); White Blood Count 6.9 X10*3/uL (4.8-10.8)
--- NOTE | 2023-09-19 08:21 | PC.NURSE ---
unable to place IV, primary RN notified.
[2023-09-19] MEDS: Budesonide 0.5 MG/2 ML AMPUL.NEB INHALE (08:28)
[2023-09-19] MEDS: Albuterol/Iprat 2.5/0.5MG 3 ML AMPUL.NEB INHALE (08:28)
--- NOTE | 2023-09-19 11:27 | P.PNIM_ITS ---
Subjective Subjective Date of Service: 09/20/23 Interval History: F/u on heart failure exacerbation Overall doing better, no sob, diuressed 4.5 L overnight, Creatinine improving. BNP level is down Physical Exam 2 Vital Signs: Vital Signs: Last Vital Signs Temp 97.6 F 09/19/23 09:25 Pulse 62 09/19/23 09:25 Resp 18 09/19/23 09:25 BP 120/57 L 09/19/23 09:25 Pulse Ox 99 09/19/23 07:41 O2 Del Method Nasal Cannula 09/19/23 07:41 O2 Flow Rate 3 09/19/23 07:41 Oxygen Flow Rate 6 09/16/23 18:05 BMI result Body Mass Index 19.9 General: AO X 3, no acute distress Resp: no increase wob, no wheeze, diminished CVS: S1,S2,RRR GI: +BS, NT, no distention Skin: No rash Neuro: motor grossly intact Psych: appropriate affect Objective Data Active Medications Acetaminophen (Acetaminophen 325 Mg Tablet) 650 mg PO Q6H PRN PRN Reason: Pain, Mild (Pain Scale 1-3), fever or headache Albuterol/Ipratropium (Albuterol/Iprat 2.5/0.5mg 3 Ml Ampul.Neb) 3 ml INHALE RQ4H WHILE AWAKE [facility] Last Admin: 09/19/23 08:28 Dose: 3 ml Documented By: KAN Albuterol/Ipratropium (Albuterol/Iprat 2.5/0.5mg 3 Ml Ampul.Neb) 3 ml INHALE Q4H PRN PRN Reason: Wheezing Aspirin (Aspirin Enteric Coated 81 Mg Tablet.) 81 mg PO DAILY [facility] Last Admin: 09/19/23 07:49 Dose: 81 mg Documented By: LAWRENCE Atenolol (Atenolol 50 Mg Tablet) 50 mg PO BID [facility]; Protocol Last Admin: 09/19/23 07:50 Dose: 50 mg Documented By: LAWRENCE Atorvastatin Calcium (Atorvastatin Calcium 80 Mg Tablet) 80 mg PO DAILY [facility] Last Admin: 09/19/23 07:49 Dose: 80 mg Documented By: LAWRENCE Benzonatate (Benzonatate 100 Mg Capsule) 100 mg PO TID PRN PRN Reason: Cough Budesonide (Budesonide 0.5 Mg/2 Ml Ampul.Neb) 0.5 mg INHALE BID [facility] Last Admin: 09/19/23 08:28 Dose: 0.5 mg Documented By: KAN Calcium Carbonate (Calcium Carbonate 750 Mg Tab.Chew) 750 mg PO Q4H PRN PRN Reason: Heartburn Last Admin: 09/17/23 20:35 Dose: 750 mg Documented By: JCARLOS Cyanocobalamin (Cyanocobalamin (Vitamin B-12) 1,000 Mcg Tablet) 1,000 mcg PO DAILY [facility] Last Admin: 09/19/23 07:50 Dose: 1,000 mcg Documented By: LAWRENCE Desmopressin Acetate (Desmopressin Acetate 0.2 Mg Tablet) 0.2 mg PO DAILY [facility] Last Admin: 09/19/23 07:48 Dose: 0.2 mg Documented By: LAWRENCE Doxazosin Mesylate (Doxazosin Mesylate 2 Mg Tablet) 16 mg PO BEDTIME [facility] Last Admin: 09/18/23 19:34 Dose: 16 mg Documented By: JCARLOS Enoxaparin Sodium (Enoxaparin Sodium 30 Mg/0.3 Ml Syringe) 30 mg SUBCUT Q24H [facility] Last Admin: 09/18/23 19:34 Dose: 30 mg Documented By: JCARLOS Ceftriaxone Sodium 1 gm/ (Sodium Chloride) 50 mls @ 100 mls/hr IV Q12H [facility] Last Infusion: 09/19/23 05:59 Dose: Infused Documented By: JCARLOS Lorazepam (Lorazepam 1 Mg Tablet) 1 mg PO ONCE PRN PRN Reason: anxiety/restlessness Last Admin: 09/17/23 20:35 Dose: 1 mg Documented By: JCARLOS Magnesium Hydroxide (Milk Of Magnesia 30 Ml Oral.Susp) 30 ml PO DAILY PRN PRN Reason: Constipation Melatonin (Melatonin 3 Mg Tablet) 6 mg PO BEDTIME PRN PRN Reason: Insomnia Methylprednisolone Sodium Succinate (Methylprednisolone Sod Succ 40 Mg/Ml Vial) 40 mg IVPUSH Q12H [facility] Last Admin: 09/19/23 07:48 Dose: 40 mg Documented By: LAWRENCE Mirabegron (Mirabegron 50 Mg Tab.Er.24h) 50 mg PO DAILY [facility] Last Admin: 07/18/24 07:48 Dose: 50 mg Documented By: LAWRENCE Omeprazole (Omeprazole 20 Mg Capsule.) 20 mg PO BID@0630,1830 PRN PRN Reason: Heartburn Last Admin: 09/18/23 15:10 Dose: 20 mg Documented By: RUPINDER Ondansetron HCl (Ondansetron Hcl 4 Mg/2 Ml Vial) 4 mg IVPUSH Q8H PRN PRN Reason: Nausea and Vomiting Oxcarbazepine (Oxcarbazepine 300 Mg Tablet) 600 mg PO BEDTIME [facility] Last Admin: 09/18/23 19:35 Dose: 600 mg Documented By: JCARLOS Spironolactone (Spironolactone 25 Mg Tablet) 25 mg PO DAILY [facility]; Protocol Last Admin: 09/19/23 07:49 Dose: 25 mg Documented By: LAWRENCE Trazodone HCl (Trazodone Hcl 100 Mg Tablet) 100 mg PO BEDTIME [facility] Last Admin: 09/18/23 19:35 Dose: 100 mg Documented By: JCARLOS Vitamin D (Cholecalciferol (Vitamin D3) 25 Mcg Tablet) 50 mcg PO DAILY [facility] Last Admin: 09/19/23 07:49 Dose: 50 mcg Documented By: LAWERNCE Labs 09/20/23 06:10 09/20/23 06:10 Labs: Laboratory Results - last 24 hr 09/18/23 09/19/23 09/19/23 13:12 05:23 07:55 MCV 73.3 L MCH 20.6 L MCHC 28.2 L RDW 17.4 H Plt Count 184 D MPV 10.5 Absolute Nucleated RBC 0.000 Nucleated RBC % (auto) 0.0 Anion Gap 16 Estim Creat Clear Calc 24.4 Estimated GFR 35 Random Glucose 159 H Calcium 8.4 B-Natriuretic Peptide 9494 H Blood Type A Positive Antibody Screen NEGATIVE Crossmatch See Detail Microbiology Microbiology Results: Microbiology 09/16/23 22:08 Urine Culture - Final Urine clean catch - Clean Catch Midstream Escherichia coli 09/16/23 18:28 Blood Culture - Preliminary Blood - Venous No growth after 48 hours. 09/16/23 18:30 Blood Culture - Preliminary Blood - Venous No growth after 48 hours. Assessment and Plan (1) Acute exacerbation of chronic obstructive pulmonary disease: Status: Acute (2) CHF exacerbation: Status: Acute Plan A 83-year-old female with a pertinent history of congestive heart failure with reduced ejection fraction, severe mitral annular calcification with regurgitation, calcified aortic valve with moderate regurgitation, moderate tricuspid regurgitation, pulmonary hypertension, chronic hypoxic respiratory failure on 2 L supplemental oxygen, chronic kidney disease stage 3, hypertension, peripheral arterial disease, mixed hyperlipidemia, urinary retention dependent on self-catheterization, myasthenia gravis, gastroesophageal reflux disease, and a mood disorder presents to the emergency department for evaluation of dyspnea and found to have CHF exac Acute on chronic hypoxic respiratory failure due to acute exacerbation of congestive heart failure with reduced ejection fraction--remains decompensated with increasing BNP and worsening renal function, likely in cardiorenal syndrome -continue IV lasix changed to Bumex drip on 09/18, negative 4.5 L overnight, continue bumex drip, BNP is trending down -continue O2 per home protocol -cardiology input noted -continue BB (Coreg in place of Atenolol), hold Losartan or Entresto in light of renal failure -Monitor I/O, weight, low salt diet. 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 Acute exacerbation of COPD also contributing to acute hypoxemic, I don't think copd is main respiratory issues, i suspect mostly heart failure, stop steroid and PRN inhalers, as she doesn't want schedule inhalers, has no wheezing on exam. steroid stop, inhalers PRN, refusing schedule Hypertension: Changed Atenolol to Coreg, hold Losartan or Entresto in light of worsening renal failure. Used to be on Norvasc Mood disorder: On trazodone at bedtime and lorazepam p.r.n. Peripheral arterial disease/mixed hyperlipidemia: On statin Urinary retention: Self catheterization at home. [place]ell fluid managment. Continue mirabegron DVT prophylaxis: Lovenox Full code need for inpt: IV diuretics for acute heart failure Quality Stroke Does the patient have a stroke diagnosis?: No VTE Prior VTE?: No VTE Risk Level:: Medical - moderate - high VTE Device Contraindication: Treatment Not Indicated VTE Drug Contraindication: N/A - Med Ordered
[2023-09-19] MEDS: LORazepam 0.5 MG TABLET PO (11:41)
--- NOTE | 2023-09-19 11:44 | PM.PNCARD ---
Subjective Subjective Date of Service: 09/19/23 Principal diagnosis: Shortness of breath, CHF. Interval history: Patient's BNP is further worsened. Overall does not seem to be having much negative balance. Creatinine is going up. Currently getting blood transfusion. She is very frustrated about the whole issue and being in the hospital. Denies any significant shortness of breath. Not sure if she received any losartan or Entresto therapy. Still not on the medicines at this point time. No clear hypotensive episodes. Review of Systems Constitutional: Reports weakness Eyes: Reports no additional eye complaints Cardiovascular: Reports dyspnea on exertion Respiratory: Reports dyspnea on exertion Musculoskeletal: Reports no additional musculoskeletal complaints Skin/Breast: Reports system reviewed and no additional complaints, except as docu Reports weakness Psychiatric: Reports irritability Physical Exam Vital Signs: Last Vital Signs Temp 97.6 F 09/19/23 09:25 Pulse 62 09/19/23 09:25 Resp 18 09/19/23 09:25 BP 120/57 L 09/19/23 09:25 Pulse Ox 99 09/19/23 07:41 O2 Del Method Nasal Cannula 09/19/23 07:41 O2 Flow Rate 3 09/19/23 07:41 Oxygen Flow Rate 6 09/16/23 18:05 BMI result Body Mass Index 19.9 Const General: cooperative, comfortable, alert, awake and other (Irritable) Nutritional Appearance: thin and other (Frail appearing) Orientation/consciousness: patient oriented x3 HEENT Head: Yes normocephalic and Yes atraumatic Neck Neck: Yes trachea midline, Yes supple and Yes no JVD Resp Effort & Inspection: normal respiratory effort Auscultation: crackles Cardio Jugular venous distension: no JVD Palpation: abnormal PMI displaced PMI Rate: regular rate Rhythm: regular rhythm Heart sounds: S1 normal heart sound present, S2 normal heart sound present, no click, no gallops and Murmur heart sound present systolic holo and at the apex GI Auscultation: normal bowel sounds Skin General skin exam: no rashes or lesions noted and ecchymosis Neuro General: patient oriented x3 and no focal motor deficits Extrem General: Yes no clubbing, cyanosis or edema Objective Labs and Meds 09/19/23 07:55 09/19/23 05:23 Lab results: Laboratory Results - last 24 hr 09/18/23 09/19/23 09/19/23 13:12 05:23 07:55 WBC 6.9 RBC 3.78 L Hgb 7.8 L Hct 27.7 L MCV 73.3 L MCH 20.6 L MCHC 28.2 L RDW 17.4 H Plt Count 184 D MPV 10.5 Absolute Nucleated RBC 0.000 Nucleated RBC % (auto) 0.0 Sodium 140 Potassium 4.4 Chloride 104 Carbon Dioxide 24 Anion Gap 16 BUN 46 H Creatinine 1.42 H Estim Creat Clear Calc 24.4 Estimated GFR 35 Random Glucose 159 H Calcium 8.4 B-Natriuretic Peptide 9494 H Blood Type A Positive Antibody Screen NEGATIVE Crossmatch See Detail Progress Note: A&P Assessment and plan (1) CHF exacerbation: Status: Acute Assessment and Plan: CHF exacerbation with significantly worsening BNP although clinically she does appear worse off at this point time with worsening creatinine. Findings are overall suggestive of more congestive heart failure but without significant fluid overload. She is currently getting blood transfusion which I think should help. I would suggest to hold any further use of angiotensin receptor blockers in her which might be worsening her kidney functions. Evaluate with renal duplex to evaluate for renal artery stenosis as she is high risk for significant renal artery stenosis. Would also suggest to start her on a Bumex drip at 0.5 mg an hour and strict intake and output chart as seems like she is not diuresing well on IV Lasix therapy at this point in time. Would continue other heart failure medications at this point in time. She has multiple comorbidities and risk factor and prognosis is guarded. Will continue to follow with her. Time Spent With Patient Time: Total time managing care of this patient today ____ minutes. Progress Note: Quality Stroke Does the patient have a stroke diagnosis?: No Procedures Date of Service Date of Service: 09/19/23
[2023-09-19] MEDS: Bumetanide 25 MG in Container,Empty 0 ML IVCONT (14:09)
[2023-09-19] MEDS: Enoxaparin Sodium 30 MG/0.3 ML SYRINGE SUBCUT (19:41)
[2023-09-19] MEDS: OXcarbazepine 300 MG TABLET 600 MG PO (20:40)
[2023-09-19] MEDS: traZODone HCL 100 MG TABLET PO (20:40)
[2023-09-19] MEDS: Doxazosin Mesylate 2 MG TABLET 16 MG PO (20:41)
[2023-09-19] MEDS: carvediloL 6.25 MG TABLET PO (20:41)
[2023-09-20 04:00] VITALS: BP 131/63; PULSE 54; RESP 16; TEMP 36; O2SAT 100
[2023-09-20 07:01] LABS: Hemoglobin 8.7 g/dl (12.0-16.0); Mean Corpuscular Hemoglobin 21.2 pg (27.0-33.0); NRBC Pct Auto 0.3 /100WBC (0.0-0.2); Platelet Count 173 X10*3/uL (160-400); Red Blood Count 4.11 X10*6/uL (4.20-5.50); Red Cell Distribution Width 17.4 % (11.0-16.0); White Blood Count 6.4 X10*3/uL (4.8-10.8)
[2023-09-20 07:39] LABS: Potassium 4.1 mmol/L (3.3-5.1); Sodium 142 mmol/L (135-145)
[2023-09-20 07:41] VITALS: BP 137/54; PULSE 54; RESP 20; TEMP 36.8; O2SAT 100
[2023-09-20 07:41] LABS: Anion Gap 18 (12-20); Carbon Dioxide 24 mmol/L (22-29); Chloride 104 mmol/L (96-108)
[2023-09-20 07:42] LABS: Blood Urea Nitrogen 52 mg/dL (9-16); Calcium 8.7 mg/dL (8.4-10.2); Creatinine Clr Calc Pharmacy 24.9; Estimated Glomerular Filt Rate 36; Glucose Random 105 mg/dL (60-115)
[2023-09-20 08:07] LABS: B Type Natriuretic Peptide 8704 pg/mL (<100)
[2023-09-20] MEDS: Mirabegron 50 MG TAB.ER.24H PO (08:10)
[2023-09-20] MEDS: Aspirin Enteric Coated 81 MG TABLET.DR PO (08:14)
[2023-09-20] MEDS: Cholecalciferol (Vitamin D3) 25 MCG TABLET 50 MCG PO (08:14)
[2023-09-20] MEDS: Atorvastatin Calcium 80 MG TABLET PO (08:15)
[2023-09-20] MEDS: Desmopressin Acetate 0.2 MG TABLET PO (08:15)
[2023-09-20] MEDS: Spironolactone 25 MG TABLET PO (08:15)
[2023-09-20] MEDS: carvediloL 6.25 MG TABLET PO ×2 (08:15→20:47)
[2023-09-20] MEDS: Cyanocobalamin (Vitamin B-12) 1,000 MCG TABLET 1000 MCG PO (08:15)
[2023-09-20 08:36] VITALS: PULSE 54; RESP 19; O2SAT 100
[2023-09-20] MEDS: Budesonide 0.5 MG/2 ML AMPUL.NEB INHALE (08:36)
[2023-09-20] MEDS: LORazepam 0.5 MG TABLET PO (08:41)
--- NOTE | 2023-09-20 10:53 | MHC.CM.PN ---
EMR reviewed and per MD rounds, pt is not medically cleared for discharge due to ongoing management of CHF exacerbation requiring bumex gtt. Anticipating pt will discharge tomorrow.
--- NOTE | 2023-09-20 11:13 | PM.PNCARD ---
Subjective Subjective Date of Service: 09/20/23 Principal diagnosis: Shortness of breath, CHF. Interval history: Patient says she is still short of breath. But although after IV Bumex she has been diuresing much better. Negative balance today. Creatinine is improved. BNP is marginally improved. No arrhythmias detected. Denies chest pain. Review of Systems Constitutional: Reports no additional constitutional complaints Cardiovascular: Reports dyspnea and Reports dyspnea on exertion Respiratory: Reports dyspnea and Reports dyspnea on exertion Physical Exam Vital Signs: Last Vital Signs Temp 98.2 F 09/20/23 07:41 Pulse 54 09/20/23 08:36 Resp 19 09/20/23 08:36 BP 137/54 L 09/20/23 07:41 Pulse Ox 100 09/20/23 07:41 O2 Del Method Nasal Cannula 09/20/23 07:41 O2 Flow Rate 3 09/20/23 07:41 Oxygen Flow Rate 6 09/16/23 18:05 BMI result Body Mass Index 19.9 Const General: cooperative, comfortable, alert, awake and other (Irritable) Nutritional Appearance: thin and other (Frail appearing) Orientation/consciousness: patient oriented x3 HEENT Head: Yes normocephalic and Yes atraumatic Neck Neck: Yes trachea midline, Yes supple and Yes no JVD Resp Effort & Inspection: normal respiratory effort Auscultation: crackles Cardio Jugular venous distension: no JVD Palpation: abnormal PMI displaced PMI Rate: regular rate Rhythm: regular rhythm Heart sounds: S1 normal heart sound present, S2 normal heart sound present, no click, no gallops and Murmur heart sound present systolic holo and at the apex GI Auscultation: normal bowel sounds Skin General skin exam: no rashes or lesions noted and ecchymosis Neuro General: patient oriented x3 and no focal motor deficits Extrem General: Yes no clubbing, cyanosis or edema Objective Labs and Meds 09/20/23 06:10 09/20/23 06:10 Lab results: Laboratory Results - last 24 hr 09/18/23 09/20/23 13:12 06:10 WBC 6.4 RBC 4.11 L Hgb 8.7 L Hct 30.0 L MCV 73.0 L MCH 21.2 L MCHC 29.0 L RDW 17.4 H Plt Count 173 MPV 11.0 Absolute Nucleated RBC 0.020 H Nucleated RBC % (auto) 0.3 H Sodium 142 Potassium 4.1 Chloride 104 Carbon Dioxide 24 Anion Gap 18 BUN 52 H Creatinine 1.39 Estim Creat Clear Calc 24.9 Estimated GFR 36 Random Glucose 105 Calcium 8.7 B-Natriuretic Peptide 8704 H Crossmatch See Detail Progress Note: A&P Assessment and plan (1) CHF exacerbation: Status: Acute Assessment and Plan: CHF which is advanced and resistant to treatment. Currently on IV Bumex therapy which she is responding to. Would continue the same. Strict intake and output chart needs to be pursued. Continue to monitor renal function as well as BNP tomorrow. Overall prognosis is guarded. She is having very difficult time dealing with this and is not accepting her diagnosis. However discussed with her that she has pretty advanced cardiac disorder. Follow-up renal duplex results. Avoid angiotensin receptor phong therapy given her rising creatinine. Blood pressure is otherwise stable. Continue vasodilators therapy. Will follow with you Time Spent With Patient Time: Total time managing care of this patient today ____ minutes. Progress Note: Quality Stroke Does the patient have a stroke diagnosis?: No Procedures Date of Service Date of Service: 09/20/23
[2023-09-20] MEDS: Bumetanide 25 MG in Container,Empty 0 ML IVCONT (13:21)
[2023-09-20 15:43] VITALS: BP 129/51; PULSE 60; RESP 19; TEMP 36.7; O2SAT 97
--- NOTE | 2023-09-20 18:54 | PM.CNNEP ---
History of Present Illness Reason for Consult Consult date: 09/20/23 Reason for consult: JUAN MIGUEL Chief Complaint Chief complaint: Dyspnea History of Present Illness Narrative: 83-year-old female with history of congestive heart failure with reduced ejection fraction, pulmonary hypertension, chronic hypoxic respiratory failure on 2 L supplemental oxygen, CKD stage 3, hypertension, peripheral arterial disease, mixed hyperlipidemia, urinary retention dependent on self catheterization, myasthenia gravis, gastroesophageal reflux disease, mood disorder presented to the emergency department for evaluation of dyspnea. She has been having dyspnea and wheezing & orthopnea without cough , fever or chills. Patient was placed on BiPAP upon arrival in the ER. She was given IV diuresis and admitted to hospital medicine. She developed JUAN MIGUEL. Nephrology has been consulted to assist in her clinical care during her current hospital stay Review of Systems Review of Systems Yes all other systems are reviewed and are negative PMFSH Past Medical History Medical History Peripheral artery disease Myasthenia gravis Hypertension Urinary retention AAA (abdominal aortic aneurysm) Moderate to severe aortic valve regurgitation Heart failure with reduced ejection fraction Cigarette smoker Asthma-COPD overlap syndrome Social History Social History Household Members: Spouse Housing: House Do you presently have visiting nurse or other home services: No Patient Tobacco Use Status: Current everyday Tobacco user Tobacco use type: Cigarette e-Cigarette/Vaping Use: Never Used service: No Meds Allergies Allergy/AdvReac Type Severity Reaction Status Date / Time SARI Inhibitors Allergy Unknown ANGIOEDEMA Verified 09/16/23 18:09 [SARI INHIBITORS] Active Medications: Current Medications Acetaminophen (Acetaminophen 325 Mg Tablet) 650 mg PO Q6H PRN PRN Reason: Pain, Mild (Pain Scale 1-3), fever or headache Albuterol/Ipratropium (Albuterol/Iprat 2.5/0.5mg 3 Ml Ampul.Neb) 3 ml INHALE Q4H PRN PRN Reason: Wheezing Aspirin (Aspirin Enteric Coated 81 Mg Tablet.) 81 mg PO DAILY [facility] Last Admin: 09/20/23 08:14 Dose: 81 mg Atorvastatin Calcium (Atorvastatin Calcium 80 Mg Tablet) 80 mg PO DAILY [facility] Last Admin: 09/20/23 08:15 Dose: 80 mg Benzonatate (Benzonatate 100 Mg Capsule) 100 mg PO TID PRN PRN Reason: Cough Budesonide (Budesonide 0.5 Mg/2 Ml Ampul.Neb) 0.5 mg INHALE BID [facility] Last Admin: 09/20/23 08:36 Dose: 0.5 mg Calcium Carbonate (Calcium Carbonate 750 Mg Tab.Chew) 750 mg PO Q4H PRN PRN Reason: Heartburn Last Admin: 09/17/23 20:35 Dose: 750 mg Carvedilol (Carvedilol 6.25 Mg Tablet) 6.25 mg PO BID [facility]; Protocol Last Admin: 09/20/23 08:15 Dose: 6.25 mg Cyanocobalamin (Cyanocobalamin (Vitamin B-12) 1,000 Mcg Tablet) 1,000 mcg PO DAILY [facility] Last Admin: 09/20/23 08:15 Dose: 1,000 mcg Desmopressin Acetate (Desmopressin Acetate 0.2 Mg Tablet) 0.2 mg PO DAILY [facility] Last Admin: 09/20/23 08:15 Dose: 0.2 mg Doxazosin Mesylate (Doxazosin Mesylate 2 Mg Tablet) 16 mg PO BEDTIME [facility] Last Admin: 09/19/23 20:41 Dose: 16 mg Enoxaparin Sodium (Enoxaparin Sodium 30 Mg/0.3 Ml Syringe) 30 mg SUBCUT Q24H [facility] Last Admin: 09/19/23 19:41 Dose: 30 mg Meropenem 500 mg/ Sodium (Chloride) 50 mls @ 100 mls/hr IV Q12H [facility] Last Infusion: 09/20/23 13:19 Dose: Infused Bumetanide 25 mg/ IV (Miscellaneous Supplies) 100 mls @ 2 mls/hr IVCONT .Q24H [facility] Last Admin: 09/20/23 13:21 Dose: 0.5 mg/hr, 2 mls/hr Lorazepam (Lorazepam 1 Mg Tablet) 1 mg PO ONCE PRN PRN Reason: anxiety/restlessness Last Admin: 09/17/23 20:35 Dose: 1 mg Lorazepam (Lorazepam 0.5 Mg Tablet) 0.5 mg PO DAILY PRN PRN Reason: anxiety/restlessness Last Admin: 09/20/23 08:41 Dose: 0.5 mg Magnesium Hydroxide (Milk Of Magnesia 30 Ml Oral.Susp) 30 ml PO DAILY PRN PRN Reason: Constipation Melatonin (Melatonin 3 Mg Tablet) 6 mg PO BEDTIME PRN PRN Reason: Insomnia Mirabegron (Mirabegron 50 Mg Tab.Er.24h) 50 mg PO DAILY [facility] Last Admin: 09/20/23 08:10 Dose: 50 mg Omeprazole (Omeprazole 20 Mg Capsule.Dr) 20 mg PO BID@0630,1830 PRN PRN Reason: Heartburn Last Admin: 09/18/23 15:10 Dose: 20 mg Ondansetron HCl (Ondansetron Hcl 4 Mg/2 Ml Vial) 4 mg IVPUSH Q8H PRN PRN Reason: Nausea and Vomiting Oxcarbazepine (Oxcarbazepine 300 Mg Tablet) 600 mg PO BEDTIME [facility] Last Admin: 09/19/23 20:40 Dose: 600 mg Spironolactone (Spironolactone 25 Mg Tablet) 25 mg PO DAILY [facility]; Protocol Last Admin: 09/20/23 08:15 Dose: 25 mg Trazodone HCl (Trazodone Hcl 100 Mg Tablet) 100 mg PO BEDTIME [facility] Last Admin: 09/19/23 20:40 Dose: 100 mg Vitamin D (Cholecalciferol (Vitamin D3) 25 Mcg Tablet) 50 mcg PO DAILY [facility] Last Admin: 09/20/23 08:14 Dose: 50 mcg Home Medications ?Medication ?Instructions ?Recorded ?Confirmed ?Last Taken ?Type atenolol 50 mg tablet 50 mg PO BID 08/11/23 09/17/23 09/16/23 09:00 History budesonide 0.5 mg/2 mL suspension 0.5 mg inhalation BID 08/11/23 09/17/23 09/16/23 09:00 History for nebulization furosemide 20 mg tablet 40 mg PO BID 08/11/23 09/17/23 09/16/23 09:00 History ipratropium 0.5 mg-albuterol 3 mg 3 ml inhalation QID 08/11/23 09/17/23 Unknown History (2.5 mg base)/3 mL nebulization soln losartan 50 mg tablet 50 mg PO DAILY 08/11/23 09/17/23 09/16/23 09:00 History mirabegron 50 mg tablet,extended 50 mg PO DAILY 08/11/23 09/17/23 09/16/23 09:00 History release 24 hr omeprazole 40 mg capsule,delayed 20 mg PO BID PRN Heartburn 08/11/23 09/17/23 Unknown History release oxcarbazepine 600 mg tablet 600 mg PO BEDTIME 08/11/23 09/17/23 09/16/23 09:00 History rosuvastatin 20 mg tablet 20 mg PO DAILY 08/11/23 09/17/23 09/16/23 09:00 History terazosin 10 mg capsule 20 mg PO BEDTIME 08/11/23 09/17/23 09/16/23 09:00 History trazodone 100 mg tablet 100 mg PO BEDTIME 08/11/23 09/17/23 09/16/23 09:00 History cholecalciferol (vitamin D3) 25 50 mcg PO DAILY 09/16/23 09/17/23 09/16/23 09:00 History mcg (1,000 unit) capsule desmopressin 0.2 mg tablet 0.2 mg PO DAILY 09/16/23 09/17/23 09/16/23 09:00 History spironolactone 25 mg tablet 25 mg PO DAILY 09/16/23 09/17/23 09/16/23 09:00 History aspirin 81 mg tablet,delayed 81 mg PO DAILY 09/17/23 09/17/23 09/16/23 09:00 History release cyanocobalamin (vitamin B-12) 1,000 mcg PO DAILY 09/17/23 09/17/23 09/16/23 09:00 History 1,000 mcg tablet Physical Exam Vital Signs: Last Vital Signs Temp 98.0 F 09/20/23 15:43 Pulse 60 09/20/23 15:43 Resp 19 09/20/23 15:43 BP 129/51 L 09/20/23 15:43 Pulse Ox 97 09/20/23 15:43 O2 Del Method Nasal Cannula 09/20/23 15:43 O2 Flow Rate 2.5 09/20/23 15:43 Oxygen Flow Rate 6 09/16/23 18:05 BMI result Body Mass Index 19.9 Const General: no acute distress Eyes EOM: EOMs intact bilaterally Resp Auscultation: diminished lung sounds Cardio Rate: regular rate GI Palpation (GI): Soft to palpation Neuro General: moves all extremities Results Lab Results 09/20/23 06:10 09/20/23 06:10 Lab results: Chemistry 09/18/23 09/19/23 09/20/23 07:17 05:23 06:10 Sodium 137 140 142 Potassium 4.7 4.4 4.1 Carbon Dioxide BUN 39 H 46 H 52 H Creatinine 1.14 1.42 H 1.39 Calcium 8.2 L 8.4 8.7 Hematology 09/19/23 09/20/23 07:55 06:10 WBC 6.9 6.4 Hgb 7.8 L 8.7 L Plt Count 184 D 173 Assessment and Plan (1) Acute kidney injury: Status: Acute Plan JUAN MIGUEL due to compromise in renal perfusion due to CR Syndrome UO good- No reason to suspect obst uropathy/ AIN/GN On diuretics with good clinical response. Needs nitrates No indication for renal replacement; C/W rest of current mgt Procedures Date of Service Date of Service: 09/20/23
[2023-09-20 19:57] VITALS: BP 139/49; PULSE 61; RESP 20; TEMP 36.7; O2SAT 97
[2023-09-20] MEDS: OXcarbazepine 300 MG TABLET 600 MG PO (20:46)
[2023-09-20] MEDS: Enoxaparin Sodium 30 MG/0.3 ML SYRINGE SUBCUT (20:46)
[2023-09-20 20:47] VITALS: BP 139/49; PULSE 61
[2023-09-20] MEDS: Doxazosin Mesylate 2 MG TABLET 16 MG PO (20:47)
[2023-09-20] MEDS: traZODone HCL 100 MG TABLET PO (20:47)
--- NOTE | 2023-09-20 21:42 | P.CNID_ITS ---
History of Present Illness Data of Consult Service Date: 09/20/23 Requesting physician: Malcolm Rebolledo Primary Care Provider: Layne Ford MD [facility] Reason for consult: ESBL E coli found in routine urine sample She presents with shortness of breath for last days. She has no fever or chills. She has no urinary complaints. She chronically caths due to retention and has seen Urology. She has no hematuria. Review of Systems 2 Review of Systems: Yes all other systems are reviewed and are negative [facility] Past Medical History Medical History (Updated 09/20/23 @ 21:46 by Allyson Rai MD) Asymptomatic bacteriuria Peripheral artery disease Myasthenia gravis Hypertension Urinary retention AAA (abdominal aortic aneurysm) Moderate to severe aortic valve regurgitation Heart failure with reduced ejection fraction Cigarette smoker Asthma-COPD overlap syndrome Family History Family history: reviewed and not pertinent Social History Social History Household Members: Spouse Housing: House Do you presently have visiting nurse or other home services: No Patient Tobacco Use Status: Current everyday Tobacco user Tobacco use type: Cigarette e-Cigarette/Vaping Use: Never Used service: No Meds Allergies Allergy/AdvReac Type Severity Reaction Status Date / Time SARI Inhibitors Allergy Unknown ANGIOEDEMA Verified 09/16/23 18:09 [SARI INHIBITORS] Active Medications: Current Medications Acetaminophen (Acetaminophen 325 Mg Tablet) 650 mg PO Q6H PRN PRN Reason: Pain, Mild (Pain Scale 1-3), fever or headache Albuterol/Ipratropium (Albuterol/Iprat 2.5/0.5mg 3 Ml Ampul.Neb) 3 ml INHALE Q4H PRN PRN Reason: Wheezing Aspirin (Aspirin Enteric Coated 81 Mg Tablet.) 81 mg PO DAILY [facility] Last Admin: 09/20/23 08:14 Dose: 81 mg Atorvastatin Calcium (Atorvastatin Calcium 80 Mg Tablet) 80 mg PO DAILY [facility] Last Admin: 09/20/23 08:15 Dose: 80 mg Benzonatate (Benzonatate 100 Mg Capsule) 100 mg PO TID PRN PRN Reason: Cough Budesonide (Budesonide 0.5 Mg/2 Ml Ampul.Neb) 0.5 mg INHALE BID [facility] Last Admin: 09/20/23 08:36 Dose: 0.5 mg Calcium Carbonate (Calcium Carbonate 750 Mg Tab.Chew) 750 mg PO Q4H PRN PRN Reason: Heartburn Last Admin: 09/17/23 20:35 Dose: 750 mg Carvedilol (Carvedilol 6.25 Mg Tablet) 6.25 mg PO BID [facility]; Protocol Last Admin: 09/20/23 20:47 Dose: 6.25 mg Cyanocobalamin (Cyanocobalamin (Vitamin B-12) 1,000 Mcg Tablet) 1,000 mcg PO DAILY [facility] Last Admin: 09/20/23 08:15 Dose: 1,000 mcg Desmopressin Acetate (Desmopressin Acetate 0.2 Mg Tablet) 0.2 mg PO DAILY [facility] Last Admin: 09/20/23 08:15 Dose: 0.2 mg Doxazosin Mesylate (Doxazosin Mesylate 2 Mg Tablet) 16 mg PO BEDTIME [facility] Last Admin: 09/20/23 20:47 Dose: 16 mg Enoxaparin Sodium (Enoxaparin Sodium 30 Mg/0.3 Ml Syringe) 30 mg SUBCUT Q24H [facility] Last Admin: 09/20/23 20:46 Dose: 30 mg Meropenem 500 mg/ Sodium (Chloride) 50 mls @ 100 mls/hr IV Q12H [facility] Last Infusion: 09/20/23 13:19 Dose: Infused Bumetanide 25 mg/ IV (Miscellaneous Supplies) 100 mls @ 2 mls/hr IVCONT .Q24H [facility] Last Admin: 09/20/23 13:21 Dose: 0.5 mg/hr, 2 mls/hr Lorazepam (Lorazepam 1 Mg Tablet) 1 mg PO ONCE PRN PRN Reason: anxiety/restlessness Last Admin: 09/17/23 20:35 Dose: 1 mg Lorazepam (Lorazepam 0.5 Mg Tablet) 0.5 mg PO DAILY PRN PRN Reason: anxiety/restlessness Last Admin: 09/20/23 08:41 Dose: 0.5 mg Magnesium Hydroxide (Milk Of Magnesia 30 Ml Oral.Susp) 30 ml PO DAILY PRN PRN Reason: Constipation Melatonin (Melatonin 3 Mg Tablet) 6 mg PO BEDTIME PRN PRN Reason: Insomnia Mirabegron (Mirabegron 50 Mg Tab.Er.24h) 50 mg PO DAILY [facility] Last Admin: 09/20/23 08:10 Dose: 50 mg Omeprazole (Omeprazole 20 Mg Capsule.Dr) 20 mg PO BID@0630,1830 PRN PRN Reason: Heartburn Last Admin: 09/18/23 15:10 Dose: 20 mg Ondansetron HCl (Ondansetron Hcl 4 Mg/2 Ml Vial) 4 mg IVPUSH Q8H PRN PRN Reason: Nausea and Vomiting Oxcarbazepine (Oxcarbazepine 300 Mg Tablet) 600 mg PO BEDTIME [facility] Last Admin: 09/20/23 20:46 Dose: 600 mg Spironolactone (Spironolactone 25 Mg Tablet) 25 mg PO DAILY [facility]; Protocol Last Admin: 09/20/23 08:15 Dose: 25 mg Trazodone HCl (Trazodone Hcl 100 Mg Tablet) 100 mg PO BEDTIME [facility] Last Admin: 09/20/23 20:47 Dose: 100 mg Vitamin D (Cholecalciferol (Vitamin D3) 25 Mcg Tablet) 50 mcg PO DAILY [facility] Last Admin: 09/20/23 08:14 Dose: 50 mcg Home Medications ?Medication ?Instructions ?Recorded ?Confirmed ?Last Taken ?Type atenolol 50 mg tablet 50 mg PO BID 08/11/23 09/17/23 09/16/23 09:00 History budesonide 0.5 mg/2 mL suspension 0.5 mg inhalation BID 08/11/23 09/17/23 09/16/23 09:00 History for nebulization furosemide 20 mg tablet 40 mg PO BID 08/11/23 09/17/23 09/16/23 09:00 History ipratropium 0.5 mg-albuterol 3 mg 3 ml inhalation QID 08/11/23 09/17/23 Unknown History (2.5 mg base)/3 mL nebulization soln losartan 50 mg tablet 50 mg PO DAILY 08/11/23 09/17/23 09/16/23 09:00 History mirabegron 50 mg tablet,extended 50 mg PO DAILY 08/11/23 09/17/23 09/16/23 09:00 History release 24 hr omeprazole 40 mg capsule,delayed 20 mg PO BID PRN Heartburn 08/11/23 09/17/23 Unknown History release oxcarbazepine 600 mg tablet 600 mg PO BEDTIME 08/11/23 09/17/23 09/16/23 09:00 History rosuvastatin 20 mg tablet 20 mg PO DAILY 08/11/23 09/17/23 09/16/23 09:00 History terazosin 10 mg capsule 20 mg PO BEDTIME 08/11/23 09/17/23 09/16/23 09:00 History trazodone 100 mg tablet 100 mg PO BEDTIME 08/11/23 09/17/23 09/16/23 09:00 History cholecalciferol (vitamin D3) 25 50 mcg PO DAILY 09/16/23 09/17/23 09/16/23 09:00 History mcg (1,000 unit) capsule desmopressin 0.2 mg tablet 0.2 mg PO DAILY 09/16/23 09/17/23 09/16/23 09:00 History spironolactone 25 mg tablet 25 mg PO DAILY 09/16/23 09/17/23 09/16/23 09:00 History aspirin 81 mg tablet,delayed 81 mg PO DAILY 09/17/23 09/17/23 09/16/23 09:00 History release cyanocobalamin (vitamin B-12) 1,000 mcg PO DAILY 09/17/23 09/17/23 09/16/23 09:00 History 1,000 mcg tablet Physical Exam 2 Vital Signs: Vital Signs: Last Vital Signs Temp 98.0 F 09/20/23 19:57 Pulse 61 09/20/23 20:47 Resp 20 09/20/23 19:57 BP 139/49 L 09/20/23 20:47 Pulse Ox 97 09/20/23 19:57 O2 Del Method Nasal Cannula 09/20/23 19:57 O2 Flow Rate 2 09/20/23 19:57 Oxygen Flow Rate 6 09/16/23 18:05 BMI result Body Mass Index 19.9 Const: General: cooperative HEENT: Head: Yes normal to inspection Face and sinus: Yes normal facial exam Mouth: Normal oral and palatal mucosa present Teeth and gingiva: d entition normal Eyes: General: appearance normal, both eyes and all related structures P upils: Equal, round and reactive pupils present Resp: Effort & Inspection: normal respiratory effort Cardio: Rate: regular rate Rhythm: regular rhythm GI: Palpation (GI): Soft to palpation and nontender : General: Yes no CVA tenderness Back/Spine/Pelvis: Back: no CVA tenderness Skin: General skin exam: no rashes or lesions noted Neuro: General: moves all extremities Cranial nerves: Yes Equal, round and reactive pupils present Extrem: General: Yes normal to inspection Psych: Appearance: grossly normal Results Labs 09/20/23 06:10 09/20/23 06:10 Labs: Short CBC 09/20/23 Range/Units 06:10 WBC 6.4 (4.8-10.8) X10*3/uL Hgb 8.7 L (12.0-16.0) g/dl Hct 30.0 L (37.0-47.0) % Plt Count 173 (160-400) X10*3/uL BMP 09/20/23 06:10 Sodium 142 Potassium 4.1 Chloride 104 Carbon Dioxide 24 BUN 52 H Creatinine 1.39 Calcium 8.7 Microbiology Microbiology Results: Microbiology 09/16/23 22:08 Urine clean catch - Clean Catch Midstream Urine Culture - Final Escherichia coli 09/16/23 18:28 Blood - Venous Blood Culture - Preliminary No growth after 48 hours. 09/16/23 18:30 Blood - Venous Blood Culture - Preliminary No growth after 48 hours. Assessment and Plan (1) CHF exacerbation: Status: Acute (2) Acute kidney injury: Status: Acute (3) Nonrheumatic mitral valve regurgitation: Status: Acute (4) Acute dyspnea: Status: Acute (5) Asymptomatic bacteriuria: Status: Acute Plan There are no signs of urinary sepsis. 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 Will stop Merem unless patient appears with urinary sepsis.
[2023-09-21] VITALS (11 sets, daily range): BP systolic 100–157; BP diastolic 49–76; PULSE 54–93; RESP 16–20; TEMP 36.1–36.8; O2SAT 95–98
[2023-09-21 06:39] LABS: Anion Gap 15 (12-20); Blood Urea Nitrogen 45 mg/dL (9-16); Calcium 8.5 mg/dL (8.4-10.2); Carbon Dioxide 26 mmol/L (22-29); Chloride 106 mmol/L (96-108); Creatinine Clr Calc Pharmacy 32.4; Estimated Glomerular Filt Rate 49; Glucose Random 105 mg/dL (60-115); Potassium 3.1 mmol/L (3.3-5.1); Sodium 144 mmol/L (135-145)
[2023-09-21 07:43] LABS: B Type Natriuretic Peptide 9807 pg/mL (<100)
[2023-09-21] MEDS: Budesonide 0.5 MG/2 ML AMPUL.NEB INHALE (07:46)
[2023-09-21] MEDS: Atorvastatin Calcium 80 MG TABLET PO (08:23)
[2023-09-21] MEDS: Cholecalciferol (Vitamin D3) 25 MCG TABLET 50 MCG PO (08:23)
[2023-09-21] MEDS: Desmopressin Acetate 0.2 MG TABLET PO (08:23)
[2023-09-21] MEDS: Spironolactone 25 MG TABLET PO (08:26)
[2023-09-21] MEDS: Aspirin Enteric Coated 81 MG TABLET.DR PO (08:26)
[2023-09-21] MEDS: Cyanocobalamin (Vitamin B-12) 1,000 MCG TABLET 1000 MCG PO (08:27)
[2023-09-21] MEDS: Mirabegron 50 MG TAB.ER.24H PO (08:27)
--- NOTE | 2023-09-21 09:23 | MHC.CM.PN ---
Patient lives in a condo with a Friend and Dr. Layne Ford is the PCP.
[2023-09-21] MEDS: Potassium Chloride ER 20 MEQ TAB.ER.PRT 40 MEQ PO (09:58)
[2023-09-21] MEDS: metOLazone 2.5 MG TABLET PO (12:44)
[2023-09-21 12:47] LABS: Magnesium 2.1 mg/dL (1.6-2.6)
--- NOTE | 2023-09-21 12:59 | PM.PNCARD ---
Subjective Subjective Date of Service: 09/21/23 Principal diagnosis: Shortness of breath, CHF. Interval history: Patient still start of breath. And a diuresis was more tepid then yesterday. Kidney function has significantly improved. Negative balance of about 700 cc. Hemodynamically stable. BNP has marginally improved. Blood pressure is stable. Review of Systems Constitutional: Reports fatigue and Reports other (Frustrated and irritated) Cardiovascular: Denies chest pain, Denies leg edema, Denies palpitations and Reports dyspnea Respiratory: Reports dyspnea Gastrointestinal: Reports no additional gastrointestinal complaints Psychiatric: Reports hopelessness and Reports irritability Endocrine: Reports fatigue and Denies palpitations Physical Exam Vital Signs: Last Vital Signs Temp 97.6 F 09/21/23 12:18 Pulse 55 09/21/23 12:18 Resp 18 09/21/23 12:18 BP 157/57 H 09/21/23 12:18 Pulse Ox 97 09/21/23 12:18 O2 Del Method Nasal Cannula 09/21/23 12:18 O2 Flow Rate 2 09/21/23 12:18 Oxygen Flow Rate 6 09/16/23 18:05 BMI result Body Mass Index 19.9 Const General: cooperative, comfortable, alert, awake and other (Irritable) Nutritional Appearance: thin and other (Frail appearing) Orientation/consciousness: patient oriented x3 HEENT Head: Yes normocephalic and Yes atraumatic Neck Neck: Yes trachea midline, Yes supple and Yes no JVD Resp Effort & Inspection: normal respiratory effort Auscultation: crackles Cardio Jugular venous distension: no JVD Palpation: abnormal PMI displaced PMI Rate: regular rate Rhythm: regular rhythm Heart sounds: S1 normal heart sound present, S2 normal heart sound present, no click, no gallops and Murmur heart sound present systolic holo and at the apex GI Auscultation: normal bowel sounds Skin General skin exam: no rashes or lesions noted and ecchymosis Neuro General: patient oriented x3 and no focal motor deficits Extrem General: Yes no clubbing, cyanosis or edema Objective Labs and Meds 09/20/23 06:10 09/21/23 05:49 Lab results: Laboratory Results - last 24 hr 09/21/23 05:49 Hold Purple Top SEE NOTE Sodium 144 Potassium 3.1 L D Chloride 106 Carbon Dioxide 26 Anion Gap 15 BUN 45 H Creatinine 1.07 Estim Creat Clear Calc 32.4 Estimated GFR 49 Random Glucose 105 Calcium 8.5 Magnesium 2.1 B-Natriuretic Peptide 9807 H Imaging Radiologist's impression: Impressions Abdomen/Pelvis CT 09/20/23 17:38 IMPRESSION: Intraperitoneal fluid. Large amount of fecal residue. 4.4 cm abdominal aortic aneurysm without evidence of surrounding hemorrhage. Fluid attenuating collections or masses in the inguinal region bilaterally. Bilateral pleural fluid and some lung base disease. Anemia. Enlarged heart. Based upon best practices the recommendation for a 4.4 cm abdominal aortic aneurysm is follow-up every 12 months. Recommend vascular consultation Fleischner guidelines were followed. Progress Note: A&P Assessment and plan (1) CHF exacerbation: Status: Acute Assessment and Plan: CHF exacerbation with slow response to therapy. She is very frustrated irritable being in the hospital. Continue Bumex drip. Will give a boost with metolazone 2.5 mg daily. I had a very long discussion about her slow response and discussed with her that overall she seems to be progressing in the right direction. Her renal function is improved suggestive of improved cardiorenal syndrome. Blood pressure is stable. Continue replace potassium to maintain it about 4. Continue follow-up renal function electrolytes. Continue monitor BNP. Strict intake and output chart needs to be pursued. Continue other medications as before. Overall prognosis guarded with multiple comorbidities. Will follow with you Time Spent With Patient Time: Total time managing care of this patient today ____ minutes. Progress Note: Quality Stroke Does the patient have a stroke diagnosis?: No Procedures Date of Service Date of Service: 09/21/23
--- NOTE | 2023-09-21 13:15 | HO.PM.IMPN ---
Subjective Subjective Date of Service: 09/21/23 Interval History: F/u on heart failure exacerbation Overall continue to make progress, renal function is now normal, c/o some non-specific abdominal pain, CT show intraperitoneal fluid and large stool burden Physical Exam Vital Signs: Vital Signs: Last Vital Signs Temp 97.6 F 09/21/23 12:18 Pulse 55 09/21/23 12:18 Resp 18 09/21/23 12:18 BP 157/57 H 09/21/23 12:18 Pulse Ox 97 09/21/23 12:18 O2 Del Method Nasal Cannula 09/21/23 12:18 O2 Flow Rate 2 09/21/23 12:18 Oxygen Flow Rate 6 09/16/23 18:05 BMI result Body Mass Index 19.9 General: AO X 3, no acute distress Resp: no increase wob, no wheeze, diminished CVS: S1,S2,RRR GI: +BS, NT, no distention, no guarding Skin: No rash Neuro: motor grossly intact Psych: appropriate affect Objective Data Active Medications Acetaminophen (Acetaminophen 325 Mg Tablet) 650 mg PO Q6H PRN PRN Reason: Pain, Mild (Pain Scale 1-3), fever or headache Albuterol/Ipratropium (Albuterol/Iprat 2.5/0.5mg 3 Ml Ampul.Neb) 3 ml INHALE Q4H PRN PRN Reason: Wheezing Aspirin (Aspirin Enteric Coated 81 Mg Tablet.) 81 mg PO DAILY COUNTS INCLUDE 234 BEDS AT THE [facility] Last Admin: 09/21/23 08:26 Dose: 81 mg Documented By: MK Atorvastatin Calcium (Atorvastatin Calcium 80 Mg Tablet) 80 mg PO DAILY COUNTS INCLUDE 234 BEDS AT THE [facility] Last Admin: 09/21/23 08:23 Dose: 80 mg Documented By: MK Benzonatate (Benzonatate 100 Mg Capsule) 100 mg PO TID PRN PRN Reason: Cough Budesonide (Budesonide 0.5 Mg/2 Ml Ampul.Neb) 0.5 mg INHALE BID COUNTS INCLUDE 234 BEDS AT THE [facility] Last Admin: 09/21/23 07:46 Dose: 0.5 mg Documented By: TONY Calcium Carbonate (Calcium Carbonate 750 Mg Tab.Chew) 750 mg PO Q4H PRN PRN Reason: Heartburn Last Admin: 09/17/23 20:35 Dose: 750 mg Documented By: JCARLOS Carvedilol (Carvedilol 3.125 Mg Tablet) 3.125 mg PO BID COUNTS INCLUDE 234 BEDS AT THE [facility]; Protocol Cyanocobalamin (Cyanocobalamin (Vitamin B-12) 1,000 Mcg Tablet) 1,000 mcg PO DAILY COUNTS INCLUDE 234 BEDS AT THE [facility] Last Admin: 09/21/23 08:27 Dose: 1,000 mcg Documented By: MK Desmopressin Acetate (Desmopressin Acetate 0.2 Mg Tablet) 0.2 mg PO DAILY COUNTS INCLUDE 234 BEDS AT THE [facility] Last Admin: 09/21/23 08:23 Dose: 0.2 mg Documented By: MK Doxazosin Mesylate (Doxazosin Mesylate 2 Mg Tablet) 16 mg PO BEDTIME COUNTS INCLUDE 234 BEDS AT THE [facility] Last Admin: 09/20/23 20:47 Dose: 16 mg Documented By: KEVIN Enoxaparin Sodium (Enoxaparin Sodium 30 Mg/0.3 Ml Syringe) 30 mg SUBCUT Q24H COUNTS INCLUDE 234 BEDS AT THE [facility] Last Admin: 09/20/23 20:46 Dose: 30 mg Documented By: KEVIN Bumetanide 25 mg/ IV (Miscellaneous Supplies) 100 mls @ 2 mls/hr IVCONT .Q24H COUNTS INCLUDE 234 BEDS AT THE [facility] Last Admin: 09/20/23 13:21 Dose: 0.5 mg/hr, 2 mls/hr Documented By: ISAAC Lorazepam (Lorazepam 1 Mg Tablet) 1 mg PO ONCE PRN PRN Reason: anxiety/restlessness Last Admin: 09/17/23 20:35 Dose: 1 mg Documented By: JCARLOS Lorazepam (Lorazepam 0.5 Mg Tablet) 0.5 mg PO DAILY PRN PRN Reason: anxiety/restlessness Last Admin: 09/20/23 08:41 Dose: 0.5 mg Documented By: ISAAC Magnesium Hydroxide (Milk Of Magnesia 30 Ml Oral.Susp) 30 ml PO DAILY PRN PRN Reason: Constipation Melatonin (Melatonin 3 Mg Tablet) 6 mg PO BEDTIME PRN PRN Reason: Insomnia Mirabegron (Mirabegron 50 Mg Tab.Er.24h) 50 mg PO DAILY COUNTS INCLUDE 234 BEDS AT THE [facility] Last Admin: 09/21/23 08:27 Dose: 50 mg Documented By: MK Omeprazole (Omeprazole 20 Mg Capsule.Dr) 20 mg PO BID@0630,1830 PRN PRN Reason: Heartburn Last Admin: 09/18/23 15:10 Dose: 20 mg Documented By: RUPINDER Ondansetron HCl (Ondansetron Hcl 4 Mg/2 Ml Vial) 4 mg IVPUSH Q8H PRN PRN Reason: Nausea and Vomiting Oxcarbazepine (Oxcarbazepine 300 Mg Tablet) 600 mg PO BEDTIME COUNTS INCLUDE 234 BEDS AT THE [facility] Last Admin: 09/20/23 20:46 Dose: 600 mg Documented By: KEVIN Spironolactone (Spironolactone 25 Mg Tablet) 25 mg PO DAILY COUNTS INCLUDE 234 BEDS AT THE [facility]; Protocol Last Admin: 09/21/23 08:26 Dose: 25 mg Documented By: MK Trazodone HCl (Trazodone Hcl 100 Mg Tablet) 100 mg PO BEDTIME COUNTS INCLUDE 234 BEDS AT THE [facility] Last Admin: 09/20/23 20:47 Dose: 100 mg Documented By: KEVIN Vitamin D (Cholecalciferol (Vitamin D3) 25 Mcg Tablet) 50 mcg PO DAILY COUNTS INCLUDE 234 BEDS AT THE [facility] Last Admin: 09/21/23 08:23 Dose: 50 mcg Documented By: MK Labs 09/20/23 06:10 09/21/23 05:49 Labs: Laboratory Results - last 24 hr 09/21/23 05:49 Hold Purple Top SEE NOTE Anion Gap 15 Estim Creat Clear Calc 32.4 Estimated GFR 49 Random Glucose 105 Calcium 8.5 Magnesium 2.1 B-Natriuretic Peptide 9807 H Assessment and Plan (1) Acute exacerbation of chronic obstructive pulmonary disease: Status: Acute (2) CHF exacerbation: Status: Acute Plan A 83-year-old female with a pertinent history of congestive heart failure with reduced ejection fraction, severe mitral annular calcification with regurgitation, calcified aortic valve with moderate regurgitation, moderate tricuspid regurgitation, pulmonary hypertension, chronic hypoxic respiratory failure on 2 L supplemental oxygen, chronic kidney disease stage 3, hypertension, peripheral arterial disease, mixed hyperlipidemia, urinary retention dependent on self-catheterization, myasthenia gravis, gastroesophageal reflux disease, and a mood disorder presents to the emergency department for evaluation of dyspnea and found to have CHF exac Acute on chronic hypoxic respiratory failure due to acute exacerbation of congestive heart failure with reduced ejection fraction--clinically remains in fluid overaload but making progress -continue Bumex drip started 09/18, negative 1400 todat, continue bumex drip, BNP is trending down, add metolazone 2.5 today -continue O2 per home protocol -cardiology input noted -continue Coreg but lower dose given bradycardia, hold Losartan or Entresto in light of renal failure, possibly restart tomorrow -Monitor I/O, weight, low salt diet. -daily bmp, replace K, mag normal Acute on chronic iron deficiency anemia--no active bleed, transfused 1 unit of 09/18 with good effect JUAN MIGUEL on CKD 4-- Creatine back to her baseline, renal doppler done result pending ESBL UTI-- Abx stopped, deemed contamination, no symptoms Anxiety--Ativan PRN ? Acute exacerbation of COPD also contributing to acute hypoxemic, I don't think copd is main respiratory issues, i suspect mostly heart failure, stop steroid and PRN inhalers, as she doesn't want schedule inhalers, has no wheezing on exam. steroid stop, inhalers PRN, refusing schedule Hypertension: Changed Atenolol to Coreg, hold Losartan or Entresto in light of renal failure. Used to be on Norvasc Mood disorder: On trazodone at bedtime and lorazepam p.r.n. Peripheral arterial disease/mixed hyperlipidemia: On statin Urinary retention: Self catheterization at home. Odell fluid managment. Continue mirabegron Abdominal pain--CT show AAA of 4 cm, large stool burden and intraperitoneal fluid--pain likely related to constipation, bowel regimen, if pain persists then surgery consult DVT prophylaxis: Lovenox Full code need for inpt: IV diuretics for acute heart failure Quality Stroke Does the patient have a stroke diagnosis?: No VTE Prior VTE?: No VTE Risk Level:: Medical - moderate - high VTE Device Contraindication: Treatment Not Indicated VTE Drug Contraindication: N/A - Med Ordered
[2023-09-21 13:31] LABS: MANUAL DIFF FLAG NO
[2023-09-21 13:37] LABS: Basophils Percent Auto 0.5 % (0-2); Eosinophils Absolute Auto 0.2 X10*3/uL (0.0-0.4); Eosinophils Percent Auto 3.4 % (0-4); Hematocrit 29.5 % (37.0-47.0); Hemoglobin 8.5 g/dl (12.0-16.0); Imm Gran Abs Auto 0.04 X10*3/uL (0.00-0.03); Imm Gran Pct Auto 0.7 % (0.0-0.4); Lymphocytes Absolute Auto 0.8 X10*3/uL (1.2-4.9); Lymphocytes Percent Auto 13.7 % (20-40); Mean Corpuscular HGB Conc 28.8 g/dl (31.0-35.0); Mean Corpuscular Hemoglobin 21.3 pg (27.0-33.0); Mean Corpuscular Volume 73.8 fL (80.0-98.0); Monocytes Absolute Auto 0.5 X10*3/uL (0.1-1.2); Monocytes Percent Auto 9.2 % (2-11); Neutrophils Percent Auto 72.5 % (45-73); Platelet Count 173 X10*3/uL (160-400); Red Cell Distribution Width 17.7 % (11.0-16.0); White Blood Count 5.5 X10*3/uL (4.8-10.8)
[2023-09-21 14:06] LABS: Alanine Aminotransferase 13 U/L (0-31); Albumin Level 3.4 g/dL (3.5-5.0); Alkaline Phosphatase 57 U/L (39-117); Aspartate Amino Transferase 10 U/L (5-31); Bilirubin Direct 0.1 mg/dL (0.0-0.5); Bilirubin Total 0.3 mg/dL (0.0-1.0); Lipase 19 U/L (8-78); Total Protein 5.6 g/dL (6.5-8.0)
[2023-09-21] MEDS: Bumetanide 25 MG in Container,Empty 0 ML IVCONT (16:45)
[2023-09-21] MEDS: Enoxaparin Sodium 30 MG/0.3 ML SYRINGE SUBCUT (20:31)
[2023-09-21] MEDS: Doxazosin Mesylate 2 MG TABLET 16 MG PO (20:32)
[2023-09-21] MEDS: carvediloL 3.125 MG TABLET PO (20:33)
[2023-09-21] MEDS: Docusate Sodium 100 MG CAPSULE PO (20:33)
[2023-09-21] MEDS: traZODone HCL 100 MG TABLET PO (20:34)
[2023-09-21] MEDS: OXcarbazepine 300 MG TABLET 600 MG PO (20:35)
[2023-09-22] VITALS (8 sets, daily range): BP systolic 110–131; BP diastolic 35–76; PULSE 52–72; RESP 16–20; TEMP 36.1–36.6; O2SAT 90–94
[2023-09-22 07:02] LABS: Anion Gap 16 (12-20); Blood Urea Nitrogen 41 mg/dL (9-16); Calcium 9.3 mg/dL (8.4-10.2); Carbon Dioxide 31 mmol/L (22-29); Chloride 95 mmol/L (96-108); Creatinine Clr Calc Pharmacy 31.5; Estimated Glomerular Filt Rate 47; Glucose Random 152 mg/dL (60-115); Potassium 3.1 mmol/L (3.3-5.1); Sodium 139 mmol/L (135-145)
[2023-09-22 07:47] LABS: B Type Natriuretic Peptide 7066 pg/mL (<100)
[2023-09-22] MEDS: Potassium Chloride ER 20 MEQ TAB.ER.PRT 40 MEQ PO ×2 (09:43→20:35)
[2023-09-22] MEDS: Docusate Sodium 100 MG CAPSULE PO ×2 (09:44→20:33)
[2023-09-22] MEDS: Spironolactone 25 MG TABLET PO (09:44)
[2023-09-22] MEDS: Mirabegron 50 MG TAB.ER.24H PO (09:44)
[2023-09-22] MEDS: Aspirin Enteric Coated 81 MG TABLET.DR PO (09:44)
[2023-09-22] MEDS: Cyanocobalamin (Vitamin B-12) 1,000 MCG TABLET 1000 MCG PO (09:44)
[2023-09-22] MEDS: Desmopressin Acetate 0.2 MG TABLET PO (09:44)
[2023-09-22] MEDS: Cholecalciferol (Vitamin D3) 25 MCG TABLET 50 MCG PO (09:44)
[2023-09-22] MEDS: Atorvastatin Calcium 80 MG TABLET PO (09:44)
[2023-09-22] MEDS: Bumetanide 25 MG in Container,Empty 0 ML IVCONT (12:34)
--- NOTE | 2023-09-22 12:43 | P.PNIM_ITS ---
Subjective Subjective Date of Service: 09/22/23 Interval History: F/u on heart failure exacerbation Overall continue to make progress, renal function is now normal, and diuressing well. No further complain of abdominal pain, wants to go home but understand that she's not ready to go Physical Exam 2 Vital Signs: Vital Signs: Last Vital Signs Temp 97.6 F 09/22/23 11:36 Pulse 60 09/22/23 11:36 Resp 19 09/22/23 11:36 BP 120/60 09/22/23 11:36 Pulse Ox 93 09/22/23 11:36 O2 Del Method Nasal Cannula 09/22/23 11:36 O2 Flow Rate 2 09/22/23 11:36 Oxygen Flow Rate 6 09/16/23 18:05 BMI result Body Mass Index 19.9 General: AO X 3, no acute distress Resp: no increase wob, no wheeze, diminished CVS: S1,S2,RRR GI: +BS, NT, no distention, no guarding Skin: No rash Neuro: motor grossly intact Psych: appropriate affect Objective Data Active Medications Acetaminophen (Acetaminophen 325 Mg Tablet) 650 mg PO Q6H PRN PRN Reason: Pain, Mild (Pain Scale 1-3), fever or headache Albuterol/Ipratropium (Albuterol/Iprat 2.5/0.5mg 3 Ml Ampul.Neb) 3 ml INHALE Q4H PRN PRN Reason: Wheezing Aspirin (Aspirin Enteric Coated 81 Mg Tablet.) 81 mg PO DAILY [facility] Last Admin: 09/22/23 09:44 Dose: 81 mg Documented By: LUCY Atorvastatin Calcium (Atorvastatin Calcium 80 Mg Tablet) 80 mg PO DAILY [facility] Last Admin: 09/22/23 09:44 Dose: 80 mg Documented By: LUCY Benzonatate (Benzonatate 100 Mg Capsule) 100 mg PO TID PRN PRN Reason: Cough Budesonide (Budesonide 0.5 Mg/2 Ml Ampul.Neb) 0.5 mg INHALE BID [facility] Last Admin: 09/22/23 07:51 Dose: Not Given Documented By: HENNA Non-Admin Reason: Patient Refused Calcium Carbonate (Calcium Carbonate 750 Mg Tab.Chew) 750 mg PO Q4H PRN PRN Reason: Heartburn Last Admin: 09/17/23 20:35 Dose: 750 mg Documented By: JCARLOS Carvedilol (Carvedilol 3.125 Mg Tablet) 3.125 mg PO BID [facility]; Protocol Last Admin: 09/22/23 08:20 Dose: Not Given Documented By: LUCY Non-Admin Reason: Physician Held Med Cyanocobalamin (Cyanocobalamin (Vitamin B-12) 1,000 Mcg Tablet) 1,000 mcg PO DAILY [facility] Last Admin: 09/22/23 09:44 Dose: 1,000 mcg Documented By: LUCY Desmopressin Acetate (Desmopressin Acetate 0.2 Mg Tablet) 0.2 mg PO DAILY [facility] Last Admin: 09/22/23 09:44 Dose: 0.2 mg Documented By: LUCY Docusate Sodium (Docusate Sodium 100 Mg Capsule) 100 mg PO BID [facility] Last Admin: 09/22/23 09:44 Dose: 100 mg Documented By: LUCY Doxazosin Mesylate (Doxazosin Mesylate 2 Mg Tablet) 16 mg PO BEDTIME [facility] Last Admin: 09/21/23 20:32 Dose: 16 mg Documented By: KEVIN Enoxaparin Sodium (Enoxaparin Sodium 30 Mg/0.3 Ml Syringe) 30 mg SUBCUT Q24H [facility] Last Admin: 09/21/23 20:31 Dose: 30 mg Documented By: KEVIN Bumetanide 25 mg/ IV (Miscellaneous Supplies) 100 mls @ 2 mls/hr IVCONT .Q24H [facility] Last Admin: 09/22/23 12:34 Dose: 0.5 mg/hr, 2 mls/hr Documented By: LCUY Lorazepam (Lorazepam 0.5 Mg Tablet) 0.5 mg PO DAILY PRN PRN Reason: anxiety/restlessness Last Admin: 09/20/23 08:41 Dose: 0.5 mg Documented By: ISAAC Magnesium Hydroxide (Milk Of Magnesia 30 Ml Oral.Susp) 30 ml PO DAILY PRN PRN Reason: Constipation Magnesium Hydroxide (Milk Of Magnesia 30 Ml Oral.Susp) 30 ml PO DAILY PRN PRN Reason: Constipation Melatonin (Melatonin 3 Mg Tablet) 6 mg PO BEDTIME PRN PRN Reason: Insomnia Mirabegron (Mirabegron 50 Mg Tab.Er.24h) 50 mg PO DAILY [facility] Last Admin: 09/22/23 09:44 Dose: 50 mg Documented By: LUCY Omeprazole (Omeprazole 20 Mg Capsule.) 20 mg PO BID@0630,1830 PRN PRN Reason: Heartburn Last Admin: 09/18/23 15:10 Dose: 20 mg Documented By: RUPINDER Ondansetron HCl (Ondansetron Hcl 4 Mg/2 Ml Vial) 4 mg IVPUSH Q8H PRN PRN Reason: Nausea and Vomiting Oxcarbazepine (Oxcarbazepine 300 Mg Tablet) 600 mg PO BEDTIME [facility] Last Admin: 09/21/23 20:35 Dose: 600 mg Documented By: KEVIN Polyethylene Glycol (Polyethylene Glycol 3350 17 Gm Powd.Pack) 17 gm PO DAILY PRN PRN Reason: Constipation Potassium Chloride (Potassium Chloride Er 20 Meq Tab.Er.Prt) 40 meq PO BID [facility] Stop: 09/22/23 21:01 Last Admin: 09/22/23 09:43 Dose: 40 meq Documented By: LUCY Spironolactone (Spironolactone 25 Mg Tablet) 25 mg PO DAILY [facility]; Protocol Last Admin: 09/22/23 09:44 Dose: 25 mg Documented By: LUCY Trazodone HCl (Trazodone Hcl 100 Mg Tablet) 100 mg PO BEDTIME [facility] Last Admin: 09/21/23 20:34 Dose: 100 mg Documented By: KEVIN Vitamin D (Cholecalciferol (Vitamin D3) 25 Mcg Tablet) 50 mcg PO DAILY [facility] Last Admin: 09/22/23 09:44 Dose: 50 mcg Documented By: LUCY Labs 09/21/23 05:49 09/22/23 05:56 Labs: Laboratory Results - last 24 hr 09/21/23 09/22/23 05:49 05:56 MCV 73.8 L MCH 21.3 L MCHC 28.8 L RDW 17.7 H Plt Count 173 MPV Not Reportable Immature Gran % (Auto) 0.7 H Neut % (Auto) 72.5 Lymph % (Auto) 13.7 L [place] % (Auto) 9.2 Eos % (Auto) 3.4 Baso % (Auto) 0.5 Lymph # (Auto) 0.8 L [place] # (Auto) 0.5 Eos # (Auto) 0.2 Baso # (Auto) 0.0 Abs Immat Gran (auto) 0.04 H Absolute Neuts (auto) 4.0 Absolute Nucleated RBC 0.000 Nucleated RBC % (auto) 0.0 Anion Gap 16 Estim Creat Clear Calc 31.5 Estimated GFR 47 Random Glucose 152 H Calcium 9.3 D Magnesium 2.1 Total Bilirubin 0.3 Direct Bilirubin 0.1 AST 10 ALT 13 Alkaline Phosphatase 57 B-Natriuretic Peptide 7066 H Total Protein 5.6 L Albumin 3.4 L Lipase 19 Microbiology Microbiology Results: Microbiology 09/16/23 18:28 Blood Culture - Final Blood - Venous No growth after 5 days. 09/16/23 18:30 Blood Culture - Final Blood - Venous No growth after 5 days. Assessment and Plan (1) Acute exacerbation of chronic obstructive pulmonary disease: Status: Acute (2) CHF exacerbation: Status: Acute Plan A 83-year-old female with a pertinent history of congestive heart failure with reduced ejection fraction, severe mitral annular calcification with regurgitation, calcified aortic valve with moderate regurgitation, moderate tricuspid regurgitation, pulmonary hypertension, chronic hypoxic respiratory failure on 2 L supplemental oxygen, chronic kidney disease stage 3, hypertension, peripheral arterial disease, mixed hyperlipidemia, urinary retention dependent on self-catheterization, myasthenia gravis, gastroesophageal reflux disease, and a mood disorder presents to the emergency department for evaluation of dyspnea and found to have CHF exac Acute on chronic hypoxic respiratory failure due to acute exacerbation of congestive heart failure with reduced ejection fraction--clinically improving -continue Bumex drip started 09/18, negative total 5.7 Li BNP is trending down -continue O2 per home protocol -cardiology input noted - hold Losartan or Entresto in light of renal failure and conern for PITA -Monitor I/O, weight, low salt diet. -daily bmp, replace K, mag normal Acute on chronic iron deficiency anemia--no active bleed, transfused 1 unit of 09/18 with good effect JUAN MIGUEL on CKD 4-- Creatine back to her baseline, renal doppler done result pending ESBL UTI-- Abx stopped, deemed contamination, no symptoms Anxiety--Ativan PRN ? Acute exacerbation of COPD also contributing to acute hypoxemic, I don't think copd is main respiratory issues, i suspect mostly heart failure, stop steroid and PRN inhalers, as she doesn't want schedule inhalers, has no wheezing on exam. steroid stop, inhalers PRN, refusing scheduled neb Hypertension: holding Atenolol, losartan. continue aldactone, start metoprolol if HR ok, has been [place] in 50s Mood disorder: On trazodone at bedtime and lorazepam p.r.n. Peripheral arterial disease/mixed hyperlipidemia: On statin Urinary retention: Self catheterization at home. Odell fluid managment. Continue mirabegron Abdominal pain--CT show AAA of 4 cm, large stool burden and intraperitoneal fluid--pain likely related to constipation, bowel regimen, if pain persists then surgery consult. No pain at moment, continue bowel regimen DVT prophylaxis: Lovenox Full code need for inpt: IV diuretics for acute heart failure Quality Stroke Does the patient have a stroke diagnosis?: No VTE Prior VTE?: No VTE Risk Level:: Medical - moderate - high VTE Device Contraindication: Treatment Not Indicated VTE Drug Contraindication: N/A - Med Ordered
--- NOTE | 2023-09-22 12:45 | P.PNCA_ITS ---
Subjective Subjective Date of Service: 09/22/23 Principal diagnosis: Shortness of breath, CHF. Interval history: Patient diuresed very well yesterday after receiving metolazone. Negative balance of about 4.5 L. kidney functions are stable. BNP is downtrending. Heart rate noticed to be on the lower side in the 50s. Remains irritable and frustrated Review of Systems Constitutional: Reports weakness Cardiovascular: Denies chest pain, Denies rapid heart rate, Denies lightheadedness, Denies Loss of Consciousness and Reports dyspnea on exertion Respiratory: Reports dyspnea on exertion Reports weakness Physical Exam Vital Signs: Last Vital Signs Temp 97.6 F 09/22/23 11:36 Pulse 60 09/22/23 11:36 Resp 19 09/22/23 11:36 BP 120/60 09/22/23 11:36 Pulse Ox 93 09/22/23 11:36 O2 Del Method Nasal Cannula 09/22/23 11:36 O2 Flow Rate 2 09/22/23 11:36 Oxygen Flow Rate 6 09/16/23 18:05 BMI result Body Mass Index 19.9 Const General: cooperative, comfortable, alert, awake and other (Irritable) Nutritional Appearance: thin and other (Frail appearing) Orientation/consciousness: patient oriented x3 HEENT Head: Yes normocephalic and Yes atraumatic Neck Neck: Yes trachea midline, Yes supple and Yes no JVD Resp Effort & Inspection: normal respiratory effort Auscultation: crackles Cardio Jugular venous distension: no JVD Palpation: abnormal PMI displaced PMI Rate: regular rate Rhythm: regular rhythm Heart sounds: S1 normal heart sound present, S2 normal heart sound present, no click, no gallops and Murmur heart sound present systolic holo and at the apex GI Auscultation: normal bowel sounds Skin General skin exam: no rashes or lesions noted and ecchymosis Neuro General: patient oriented x3 and no focal motor deficits Extrem General: Yes no clubbing, cyanosis or edema Objective Labs and Meds 09/21/23 05:49 09/22/23 05:56 Lab results: Laboratory Results - last 24 hr 09/21/23 09/22/23 05:49 05:56 WBC 5.5 RBC 4.00 L Hgb 8.5 L Hct 29.5 L MCV 73.8 L MCH 21.3 L MCHC 28.8 L RDW 17.7 H Plt Count 173 MPV Not Reportable Immature Gran % (Auto) 0.7 H Neut % (Auto) 72.5 Lymph % (Auto) 13.7 L [place] % (Auto) 9.2 Eos % (Auto) 3.4 Baso % (Auto) 0.5 Lymph # (Auto) 0.8 L [place] # (Auto) 0.5 Eos # (Auto) 0.2 Baso # (Auto) 0.0 Abs Immat Gran (auto) 0.04 H Absolute Neuts (auto) 4.0 Absolute Nucleated RBC 0.000 Nucleated RBC % (auto) 0.0 Sodium 139 Potassium 3.1 L Chloride 95 L Carbon Dioxide 31 H Anion Gap 16 BUN 41 H Creatinine 1.10 Estim Creat Clear Calc 31.5 Estimated GFR 47 Random Glucose 152 H Calcium 9.3 D Magnesium 2.1 Total Bilirubin 0.3 Direct Bilirubin 0.1 AST 10 ALT 13 Alkaline Phosphatase 57 B-Natriuretic Peptide 7066 H Total Protein 5.6 L Albumin 3.4 L Lipase 19 Progress Note: A&P Assessment and plan (1) CHF exacerbation: Status: Acute Assessment and Plan: Resistant and advanced CHF secondary to ischemic cardiomyopathy underlying significant coronary disease with multiple valvular abnormalities multiple comorbidities. Clinically currently she is improving. Does not appear significantly fluid overloaded but responding to therapy with diuresis. Will continue IV diuresis with drip. Would avoid angiotensin receptor phong given that she had significant kidney function abnormality with addition. Blood pressure is well optimally controlled. Continue carvedilol therapy and continue full disclosure cardiac telemetry. In the 50s heart rate is not too low to consider stopping carvedilol therapy at this point time. Consider adding Jardiance to her regimen. Continue spironolactone therapy. Continue strict intake and output chart. Continue monitor renal function as well as BNP. Will continue to follow with you Time Spent With Patient Time: Total time managing care of this patient today ____ minutes. Progress Note: Quality Stroke Does the patient have a stroke diagnosis?: No Procedures Date of Service Date of Service: 09/22/23
[2023-09-22 13:07] LABS: Magnesium 1.9 mg/dL (1.6-2.6)
[2023-09-22] MEDS: Budesonide 0.5 MG/2 ML AMPUL.NEB INHALE (19:45)
--- NOTE | 2023-09-22 19:45 | PC.NURSE ---
Patient complained to staff that she did not get her dinner, called kitchen and was informed that patient was offered dinner tray but refused it stating she did not like her diet order. Patient first denied refusal but then did say she has been complaining about the food, patient was offered food that is available on the unit and chose to have cereal with milk. Patient was upset stating there are many issues she was not happy with including broken volume on TV, beeping sounds from her IV and diet order. Patient was advised that the TV issue was reported, to use call argueta and call for assistance when IV starts beeping.
[2023-09-22] MEDS: Enoxaparin Sodium 30 MG/0.3 ML SYRINGE SUBCUT (20:32)
[2023-09-22] MEDS: Doxazosin Mesylate 2 MG TABLET 16 MG PO (20:33)
[2023-09-22] MEDS: traZODone HCL 100 MG TABLET PO (20:36)
[2023-09-22] MEDS: OXcarbazepine 300 MG TABLET 600 MG PO (20:36)
[2023-09-22] MEDS: Metoprolol Tartrate 25 MG TABLET PO (20:50)
[2023-09-23] VITALS (14 sets, daily range): BP systolic 103–130; BP diastolic 46–60; PULSE 54–98; RESP 16–20; TEMP 36–36.8; O2SAT 92–100
[2023-09-23] MEDS: Omeprazole 20 MG CAPSULE.DR PO (00:20)
[2023-09-23] MEDS: Budesonide 0.5 MG/2 ML AMPUL.NEB INHALE ×2 (08:15→20:00)
[2023-09-23 09:12] LABS: Hemoglobin 10.1 g/dl (12.0-16.0); Mean Corpuscular HGB Conc 28.9 g/dl (31.0-35.0); Mean Corpuscular Hemoglobin 20.9 pg (27.0-33.0); Mean Corpuscular Volume 72.3 fL (80.0-98.0); Mean Platelet Volume 10.7 fL (9.4-12.3); Platelet Count 242 X10*3/uL (160-400); Red Blood Count 4.84 X10*6/uL (4.20-5.50); Red Cell Distribution Width 18.5 % (11.0-16.0); White Blood Count 9.1 X10*3/uL (4.8-10.8)
[2023-09-23] MEDS: Docusate Sodium 100 MG CAPSULE PO (09:12)
[2023-09-23] MEDS: Spironolactone 25 MG TABLET PO (09:12)
[2023-09-23] MEDS: Mirabegron 50 MG TAB.ER.24H PO (09:12)
[2023-09-23] MEDS: Cholecalciferol (Vitamin D3) 25 MCG TABLET 50 MCG PO (09:12)
[2023-09-23] MEDS: Aspirin Enteric Coated 81 MG TABLET.DR PO (09:12)
[2023-09-23] MEDS: Atorvastatin Calcium 80 MG TABLET PO (09:12)
[2023-09-23] MEDS: Metoprolol Tartrate 25 MG TABLET PO ×2 (09:13→21:05)
[2023-09-23] MEDS: Cyanocobalamin (Vitamin B-12) 1,000 MCG TABLET 1000 MCG PO (09:14)
[2023-09-23] MEDS: Desmopressin Acetate 0.2 MG TABLET PO (09:14)
[2023-09-23 09:26] LABS: Anion Gap 16 (12-20); Blood Urea Nitrogen 44 mg/dL (9-16); Carbon Dioxide 28 mmol/L (22-29); Chloride 96 mmol/L (96-108); Creatinine Clr Calc Pharmacy 28.6; Estimated Glomerular Filt Rate 42; Glucose Random 156 mg/dL (60-115); Potassium 4.1 mmol/L (3.3-5.1); Sodium 136 mmol/L (135-145)
[2023-09-23 09:33] LABS: B Type Natriuretic Peptide 3190 pg/mL (<100)
--- NOTE | 2023-09-23 09:43 | PM.PNCARD ---
Subjective Subjective Date of Service: 09/23/23 Principal diagnosis: Shortness of breath, CHF. Interval history: Patient states she feels okay. Again asking about getting discharged today. She states her breathing is much improved today. Review of Systems Review of Systems Yes all other systems are reviewed and are negative Constitutional: Reports as per HPI and Reports no additional constitutional complaints Eyes: Reports as per HPI and Denies no additional eye complaints Denies system reviewed and no additional complaints, except as documented and Reports as per HPI Cardiovascular: Reports as per HPI, Reports no additional cardiovascular complaints, Denies acrocyanosis, Denies cool extremities, Denies chest pain, Denies leg edema, Denies lightheadedness, Denies palpitations and Denies dyspnea Respiratory: Reports as per HPI, Denies no additional respiratory complaints and Denies dyspnea Gastrointestinal: Reports as per HPI and Denies no additional gastrointestinal complaints Genitourinary: Reports as per HPI Musculoskeletal: Reports no additional musculoskeletal complaints and Reports as per HPI Skin/Breast: Reports system reviewed and no additional complaints, except as docu Reports system reviewed and no additional complaints, except as documented and Reports as per HPI Psychiatric: Reports no additional psychiatric complaints and Reports as per HPI Endocrine: Reports no additional endocrine complaints, Reports as per HPI and Denies palpitations Hematologic/Lymphatic: Reports no additional hematologic/lymphatic complaints and Reports as per HPI Allergic/Immunologic: Reports no additional allergic/immunologic complaints and Reports as per HPI Physical Exam Vital Signs: Last Vital Signs Temp 98.3 F 09/23/23 07:05 Pulse 66 09/23/23 09:13 Resp 18 09/23/23 08:18 BP 103/49 L 09/23/23 09:13 Pulse Ox 98 09/23/23 07:05 O2 Del Method Nasal Cannula 09/23/23 07:05 O2 Flow Rate 2 09/23/23 07:05 Oxygen Flow Rate 6 09/16/23 18:05 BMI result Body Mass Index 19.9 Const General: comfortable and no acute distress Orientation/consciousness: patient oriented x3 HEENT Other: Unremarkable Head: Yes normal to inspection Neck Neck: Yes normal visual inspection Chest Chest palpation & inspection: normal inspection of the chest Resp Other: Few basal crackles Cardio Palpation: normal PMI Heart sounds: S1 normal heart sound present, S2 normal heart sound present, no gallops, no murmurs and no rubs GI Palpation (GI): Soft to palpation Back/Spine/Pelvis Other: unremarkable Skin General skin exam: no rashes or lesions noted Neuro General: patient oriented x3 Extrem General: Yes normal to inspection Psych Mental Status: mental status grossly normal Objective Labs and Meds 09/23/23 08:54 09/23/23 08:54 Lab results: Laboratory Results - last 24 hr 09/22/23 09/23/23 09/23/23 05:56 08:00 08:54 WBC 9.1 RBC 4.84 D Hgb 10.1 L Hct 35.0 L MCV 72.3 L MCH 20.9 L MCHC 28.9 L RDW 18.5 H Plt Count 242 D MPV 10.7 Absolute Nucleated RBC 0.000 Nucleated RBC % (auto) 0.0 Sodium 136 Potassium 4.1 D Chloride 96 Carbon Dioxide 28 Anion Gap 16 BUN 44 H Creatinine 1.21 Estim Creat Clear Calc 28.6 Estimated GFR 42 Random Glucose 156 H Calcium 9.0 Magnesium 1.9 B-Natriuretic Peptide 3190 H Progress Note: A&P Assessment and plan (1) Acute on chronic systolic congestive heart failure, NYHA class 3: Status: Acute Plan Per the most recent echocardiogram at [facility] [place], LVEF is 30-35%, lateral wall is akinetic. Basal to mid inferior akinetic. Severe mitral annular calcification. Mild regurgitation. Mild aortic stenosis/moderate aortic regurgitation. Left atrium severely dilated. Compared to the prior study from June it was felt that the mitral regurgitation as well as tricuspid regurgitation had improved. Currently, she is not appearing volume overload peripherally. Chest sounds mildly crackly. Remains on diuretic drip. Overall, severe ischemic cardiomyopathy; underlying coronary disease; COPD; many comorbidities. She has diuresed 12 L and-7 L overall for the duration of hospital stay. Cardiac BNP is improved significantly. It was as much as 9800 but currently at 3190. Ideally, continue IV diuretics for another day or so but patient is insisting on discharge. Discussed with Dr. Rebolledo about this as well. Otherwise, with regard to medications, could not tolerate ARB due to worsening kidney function. She was on atenolol at home but currently on metoprolol. May use a sustained release preparation, more suitable for heart failure. Other meds will need to be optimized as well including spironolactone/Jardiance. Discussed with significant other at bedside. Time Spent With Patient Time: Total time managing care of this patient today ____ minutes. Progress Note: Quality Stroke Does the patient have a stroke diagnosis?: No Procedures Date of Service Date of Service: 09/23/23
--- NOTE | 2023-09-23 12:46 | P.PNIM_ITS ---
Subjective Subjective Date of Service: 09/23/23 Interval History: F/u on heart failure exacerbation still diuressing and asking to go home renal function slightly up Physical Exam 2 Vital Signs: Vital Signs: Last Vital Signs Temp 97.3 F 09/23/23 11:48 Pulse 61 09/23/23 11:48 Resp 18 09/23/23 11:48 BP 130/46 L 09/23/23 11:48 Pulse Ox 97 09/23/23 11:48 O2 Del Method Nasal Cannula 09/23/23 11:48 O2 Flow Rate 2 09/23/23 11:48 Oxygen Flow Rate 6 09/16/23 18:05 BMI result Body Mass Index 19.9 General: AO X 3, no acute distress Resp: no increase wob, no wheeze, diminished CVS: S1,S2,RRR GI: +BS, NT, no distention, no guarding Skin: No rash Neuro: motor grossly intact Psych: appropriate affect Objective Data Active Medications Acetaminophen (Acetaminophen 325 Mg Tablet) 650 mg PO Q6H PRN PRN Reason: Pain, Mild (Pain Scale 1-3), fever or headache Albuterol/Ipratropium (Albuterol/Iprat 2.5/0.5mg 3 Ml Ampul.Neb) 3 ml INHALE Q4H PRN PRN Reason: Wheezing Aspirin (Aspirin Enteric Coated 81 Mg Tablet.) 81 mg PO DAILY [facility] Last Admin: 09/23/23 09:12 Dose: 81 mg Documented By: RICK Atorvastatin Calcium (Atorvastatin Calcium 80 Mg Tablet) 80 mg PO DAILY [facility] Last Admin: 09/23/23 09:12 Dose: 80 mg Documented By: RICK Benzonatate (Benzonatate 100 Mg Capsule) 100 mg PO TID PRN PRN Reason: Cough Budesonide (Budesonide 0.5 Mg/2 Ml Ampul.Neb) 0.5 mg INHALE BID [facility] Last Admin: 09/23/23 08:15 Dose: 0.5 mg Documented By: DAT Calcium Carbonate (Calcium Carbonate 750 Mg Tab.Chew) 750 mg PO Q4H PRN PRN Reason: Heartburn Last Admin: 09/17/23 20:35 Dose: 750 mg Documented By: JCARLOS Cyanocobalamin (Cyanocobalamin (Vitamin B-12) 1,000 Mcg Tablet) 1,000 mcg PO DAILY [facility] Last Admin: 09/23/23 09:14 Dose: 1,000 mcg Documented By: RICK Desmopressin Acetate (Desmopressin Acetate 0.2 Mg Tablet) 0.2 mg PO DAILY [facility] Last Admin: 09/23/23 09:14 Dose: 0.2 mg Documented By: RICK Docusate Sodium (Docusate Sodium 100 Mg Capsule) 100 mg PO BID [facility] Last Admin: 09/23/23 09:12 Dose: 100 mg Documented By: RICK Doxazosin Mesylate (Doxazosin Mesylate 2 Mg Tablet) 16 mg PO BEDTIME [facility] Last Admin: 09/22/23 20:33 Dose: 16 mg Documented By: ALYSSA Enoxaparin Sodium (Enoxaparin Sodium 30 Mg/0.3 Ml Syringe) 30 mg SUBCUT Q24H [facility] Last Admin: 09/22/23 20:32 Dose: 30 mg Documented By: ALYSSA Lorazepam (Lorazepam 0.5 Mg Tablet) 0.5 mg PO DAILY PRN PRN Reason: anxiety/restlessness Last Admin: 09/20/23 08:41 Dose: 0.5 mg Documented By: ISAAC Magnesium Hydroxide (Milk Of Magnesia 30 Ml Oral.Susp) 30 ml PO DAILY PRN PRN Reason: Constipation Magnesium Hydroxide (Milk Of Magnesia 30 Ml Oral.Susp) 30 ml PO DAILY PRN PRN Reason: Constipation Melatonin (Melatonin 3 Mg Tablet) 6 mg PO BEDTIME PRN PRN Reason: Insomnia Metoprolol Tartrate (Metoprolol Tartrate 25 Mg Tablet) 25 mg PO BID [facility]; Protocol Last Admin: 09/23/23 09:13 Dose: 25 mg Documented By: RICK Mirabegron (Mirabegron 50 Mg Tab.Er.24h) 50 mg PO DAILY [facility] Last Admin: 09/23/23 09:12 Dose: 50 mg Documented By: RICK Omeprazole (Omeprazole 20 Mg Capsule.Dr) 20 mg PO BID@0630,1830 PRN PRN Reason: Heartburn Last Admin: 09/23/23 00:20 Dose: 20 mg Documented By: ALYSSA Ondansetron HCl (Ondansetron Hcl 4 Mg/2 Ml Vial) 4 mg IVPUSH Q8H PRN PRN Reason: Nausea and Vomiting Oxcarbazepine (Oxcarbazepine 300 Mg Tablet) 600 mg PO BEDTIME [facility] Last Admin: 09/22/23 20:36 Dose: 600 mg Documented By: ALYSSA Polyethylene Glycol (Polyethylene Glycol 3350 17 Gm Powd.Pack) 17 gm PO DAILY PRN PRN Reason: Constipation Spironolactone (Spironolactone 25 Mg Tablet) 25 mg PO DAILY [facility]; Protocol Last Admin: 09/23/23 09:12 Dose: 25 mg Documented By: RICK Trazodone HCl (Trazodone Hcl 100 Mg Tablet) 100 mg PO BEDTIME [facility] Last Admin: 09/22/23 20:36 Dose: 100 mg Documented By: ALYSSA Vitamin D (Cholecalciferol (Vitamin D3) 25 Mcg Tablet) 50 mcg PO DAILY [facility] Last Admin: 09/23/23 09:12 Dose: 50 mcg Documented By: RICK Labs 09/23/23 08:54 09/23/23 08:54 Labs: Laboratory Results - last 24 hr 09/22/23 09/23/23 09/23/23 05:56 08:00 08:54 MCV 72.3 L MCH 20.9 L MCHC 28.9 L RDW 18.5 H Plt Count 242 D MPV 10.7 Absolute Nucleated RBC 0.000 Nucleated RBC % (auto) 0.0 Anion Gap 16 Estim Creat Clear Calc 28.6 Estimated GFR 42 Random Glucose 156 H Calcium 9.0 Magnesium 1.9 B-Natriuretic Peptide 3190 H Assessment and Plan (1) Acute exacerbation of chronic obstructive pulmonary disease: Status: Acute (2) CHF exacerbation: Status: Acute Plan A 83-year-old female with a pertinent history of congestive heart failure with reduced ejection fraction, severe mitral annular calcification with regurgitation, calcified aortic valve with moderate regurgitation, moderate tricuspid regurgitation, pulmonary hypertension, chronic hypoxic respiratory failure on 2 L supplemental oxygen, chronic kidney disease stage 3, hypertension, peripheral arterial disease, mixed hyperlipidemia, urinary retention dependent on self-catheterization, myasthenia gravis, gastroesophageal reflux disease, and a mood disorder presents to the emergency department for evaluation of dyspnea and found to have CHF exac Acute on chronic hypoxic respiratory failure due to acute exacerbation of congestive heart failure with reduced ejection fraction--clinically improving - Bumex drip started since 09/18, negative total L BNP down 3000 from 9000 -continue O2 per home protocol -cardiology input noted - hold Losartan or Entresto in light of renal failure and conern for PITA -checking with cardiology if we can change to PO diuretics or IV push -Monitor I/O, weight, low salt diet. -daily bmp, replace K, mag as needed Acute on chronic iron deficiency anemia--no active bleed, transfused 1 unit of 09/18 with good effect JUAN MIGUEL on CKD 4-- Creatine back to her baseline, renal doppler done result pending ESBL UTI-- Abx stopped, deemed contamination, no symptoms Anxiety--Ativan PRN ? Acute exacerbation of COPD also contributing to acute hypoxemic, I don't think copd is main respiratory issues, i suspect mostly heart failure, stop steroid and PRN inhalers, as she doesn't want schedule inhalers, has no wheezing on exam. steroid stop, inhalers PRN, refusing scheduled neb Hypertension: holding Atenolol, losartan. continue aldactone, metoprolol Mood disorder: On trazodone at bedtime and lorazepam p.r.n. Peripheral arterial disease/mixed hyperlipidemia: On statin Urinary retention: Self catheterization at home. Odell fluid managment. Continue mirabegron Abdominal pain--CT show AAA of 4 cm, large stool burden and intraperitoneal fluid--pain likely related to constipation, bowel regimen, if pain persists then surgery consult. No pain at moment, continue bowel regimen PT recommends home with services DVT prophylaxis: Lovenox Full code need for inpt: IV diuretics for acute heart failure Quality Stroke Does the patient have a stroke diagnosis?: No VTE Prior VTE?: No VTE Risk Level:: Medical - moderate - high VTE Device Contraindication: Treatment Not Indicated VTE Drug Contraindication: N/A - Med Ordered
--- NOTE | 2023-09-23 13:10 | MHC.CM.PN ---
EMR reviewed and per MD rounds, pt is not medically cleared for discharge due to ongoing management of CHF requiring IV diuretics.
[2023-09-23] MEDS: Bumetanide 1 MG/4 ML VIAL 2 MG IVPUSH (21:04)
[2023-09-23] MEDS: Enoxaparin Sodium 30 MG/0.3 ML SYRINGE SUBCUT (21:05)
[2023-09-23] MEDS: OXcarbazepine 300 MG TABLET 600 MG PO (21:06)
[2023-09-23] MEDS: Doxazosin Mesylate 2 MG TABLET 16 MG PO (21:07)
[2023-09-23] MEDS: traZODone HCL 100 MG TABLET PO (21:07)
[2023-09-24] VITALS: BP 129/65; PULSE 58; RESP 16; TEMP 36.2; O2SAT 98
[2023-09-24 03:38] VITALS: BP 138/62; PULSE 52; RESP 16; TEMP 36; O2SAT 97
[2023-09-24 06:20] LABS: Anion Gap 17 (12-20); Blood Urea Nitrogen 48 mg/dL (9-16); Calcium 9.1 mg/dL (8.4-10.2); Carbon Dioxide 30 mmol/L (22-29); Chloride 95 mmol/L (96-108); Creatinine Clr Calc Pharmacy 29.4; Estimated Glomerular Filt Rate 44; Glucose Random 112 mg/dL (60-115); Potassium 3.5 mmol/L (3.3-5.1); Sodium 138 mmol/L (135-145)
[2023-09-24 06:26] LABS: B Type Natriuretic Peptide 2737 pg/mL (<100)
[2023-09-24 08:00] VITALS: BP 112/49; PULSE 54; RESP 20; TEMP 36.5; O2SAT 94
[2023-09-24] MEDS: Budesonide 0.5 MG/2 ML AMPUL.NEB INHALE (08:00)
[2023-09-24 08:02] VITALS: PULSE 52; RESP 16; O2SAT 93
[2023-09-24] MEDS: Docusate Sodium 100 MG CAPSULE PO (08:55)
[2023-09-24] MEDS: Desmopressin Acetate 0.2 MG TABLET PO (08:55)
[2023-09-24] MEDS: Spironolactone 25 MG TABLET PO (08:55)
[2023-09-24] MEDS: Atorvastatin Calcium 80 MG TABLET PO (08:55)
[2023-09-24] MEDS: Aspirin Enteric Coated 81 MG TABLET.DR PO (08:55)
[2023-09-24] MEDS: Cholecalciferol (Vitamin D3) 25 MCG TABLET 50 MCG PO (08:56)
[2023-09-24] MEDS: Cyanocobalamin (Vitamin B-12) 1,000 MCG TABLET 1000 MCG PO (08:56)
[2023-09-24] MEDS: Bumetanide 1 MG TABLET 2 MG PO (09:01)
--- NOTE | 2023-09-24 09:23 | P.DS_ITS ---
DS: Providers Provider Date of Service: 09/24/23 Date of admission: 09/16/23 19:47 Primary care physician: Layne Ford MD Consults: 09/16/23 19:47 Consult to Cardiology Routine Consulting Provider: [facility] Reason for consultation: CHF exacerbation Has provider been notified: Yes 09/19/23 12:06 Consult to Nephrology Routine Consulting Provider: [facility] Reason for consultation: JUAN MIGUEL on CKD 09/20/23 11:45 Consult to Infectious Diseases Routine Consulting Provider: [facility] Reason for consultation: resistant e coli uti Has provider been notified: No DS: Diagnosis Discharge Diagnosis (1) Acute exacerbation of chronic obstructive pulmonary disease: Status: Acute (2) CHF exacerbation: Status: Acute DS: Summary Hospital Course Hospital Course: admission hpi Chief Complaint: Dyspnea This is a 83-year-old female with pertinent history of congestive heart failure with reduced ejection fraction, severe mitral annular calcification with regurgitation, calcified aortic valve with moderate regurgitation, moderate tricuspid regurgitation, pulmonary hypertension, chronic hypoxic respiratory failure on 2 L supplemental oxygen, CKD stage 3, hypertension, peripheral arterial disease, mixed hyperlipidemia, urinary retention dependent on self catheterization, myasthenia gravis, gastroesophageal reflux disease, mood disorder who presents to the emergency department for evaluation of dyspnea. Patient states her symptoms started on the day of presentation. She has been having dyspnea and wheezing. Admits orthopnea. No cough or fever or chills. Patient with recurrent hospitalizations due to dyspnea in the past few months. Patient denies chest discomfort, palpitations, abdominal pain, changes in urinary or bowel habits. Patient was found to be satting in the 80s on her 2 L baseline supplemental oxygen as per EMS. Patient was placed on BiPAP upon arrival in the ER. Patient states she has an appointment with the event representative tomorrow and has two outpatient scheduled tests. Patient's breathing improved with BiPAP in the ER. ABG within normal limits. She was given IV diuresis and admitted to hospital medicine. Hospital course: This patient with underlying chronic respiratory failure on home O2, and chroic heart failure with reduced EF, stage 3 chronic kidney disease presented with shortness of breath and she was found to have acute hypoxic respirtory failure and evidence of heart failure on CXR, elevated BNP as well as clinical features. Initially also thought have been having exacerbation of COPD..UTI by UA. Her hospital course was further complicated by acute on chronic renal failure. Hospital course by problems as below Acute on chronic hypoxic respiratory failure due to acute exacerbation of congestive heart failure with reduced ejection fraction. Acute hypoxia has resolved with treatment of underlying heart failure. She is back to her baseline chronic O2 at 2 liters and saturating 96 %. Acute on chronic heart failure with reduced EF as evident CXR finding of pulmonary edema and elevated BNP of 3916 on 09/16/23which will ultimately peaked at 9807 on 09/21/23. Initially treated with IV lasix push of 40 mg twice daily with modest effect and 3 days later swiched to Bumex drip at 0.5 m/hr and has achieved significant improvement and todate has had negative 8.4 BNP has come down from 9800 to now 2700 and her symptoms have resolved. She will be switched to oral Bumex at 2 mg twice daily. Of note we are unable to addd ACEi or Entresto due worsening renal faiure with Losartan. For now Jardiance 10 mg daily has been added, to continue Aldactone 25 mg twice daily and Atenolol replaced with Toprolol XL 50 mg daily. Cardiology service assisted on her management. Echo was not performed as had recent Echo at [facility] on August 20 showing The left ventricle is normal in size. There is asymmetric septal hypertrophy (2.1 cm). The left ventricular wall thickness is upper normal. The LV systolic function is moderately reduced. The left ventricular ejection fraction is 30-35 %. She will be discharged with visiting nurse service Acute on chronic iron deficiency anemia--no active bleed, transfused 1 unit of 09/18 with good effect, hematocrit went from 27 to presently 35 as of 09/22 JUAN MIGUEL on CKD 4-- Creatine nadine from 1.14 to 1.42 with losartan which was stopped and creatine has since come down presently 1.18 as 09/24/23 ESBL UTI (E.coli)-- She was initially startedon Meropenem, was not having symptoms, was reviewed by ID and deeemed colonization and therefore antibiotics were stopped Anxiety--was treated with Ativan PRN COPD--no exacerbation, was initially on steroid but was stopped as symptoms were due to heart failure Hypertension: Off Atenolol changed to Torpolol, continue Aldactone. Holding Losartan due to renal failure Mood disorder: On trazodone at bedtime and lorazepam p.r.n. Peripheral arterial disease/mixed hyperlipidemia: On statin Urinary retention: Self catheterization at home. Odell fluid managment. Continue mirabegron. Was on Desmopressin for this but stopped due to contraindication in setting of CKD with CrCl < 50 and also not deemed to be effection for the chronic urinary retention. There was no effect on sodium while patient taken it and will check labs onoutaptietn basis. Abdominal pain--CT show AAA of 4 cm, large stool burden and intraperitoneal fluid--pain likely related to constipation, bowel regimen, if pain persists then surgery consult. No pain at moment, continue bowel regime. Will need surveillance on outpatient outpatient basis and also not interested in operation at this time. Time Attestation Discharge Coordination Time (in mins): 45 Quality: Safe Use of Opioids Does Pt have an Active Cancer Diagnosis on the Problem List?: No Quality: Stroke Does the patient have a stroke diagnosis?: No Physical Exam Vital Signs: Vital Signs: Last Vital Signs Temp 97.7 F 09/24/23 08:00 Pulse 52 09/24/23 08:02 Resp 16 09/24/23 08:02 BP 112/49 L 09/24/23 08:00 Pulse Ox 94 09/24/23 08:00 O2 Del Method Nasal Cannula 09/24/23 08:00 O2 Flow Rate 2 09/24/23 08:00 Oxygen Flow Rate 6 09/16/23 18:05 BMI result Body Mass Index 19.9 General: AO X 3, no acute distress Resp: no increase wob, no wheeze, diminished CVS: S1,S2,RRR GI: +BS, NT, no distention, no guarding Skin: No rash Neuro: motor grossly intact Psych: appropriate affect DS: Data Data Completed and Pending Labs on day of discharge: Laboratory Results - last 24 hr 09/23/23 09/23/23 09/24/23 08:00 08:54 05:55 Sodium 136 138 Potassium 4.1 D 3.5 Chloride 96 95 L Carbon Dioxide 28 30 H Anion Gap 16 17 BUN 44 H 48 H Creatinine 1.21 1.18 Estim Creat Clear Calc 28.6 29.4 Estimated GFR 42 44 Random Glucose 156 H 112 Calcium 9.0 9.1 B-Natriuretic Peptide 3190 H 2737 H Discharge Plan Discharge Anticipated Discharge Date/Time: 07/23/24 09:35 Patient Disposition: Home Health Service Discharge Diagnosis: Acute on chronic heart failure, acute hypoxic respiratory failure, chronic urianary retention Referrals: [facility] [Outside] - 1 Week Layne Ford MD [Primary Care Provider] - 1 Week Discharge Medications: New metoprolol succinate [Toprol XL] 50 mg tablet extended release 24 hr 50 mg PO DAILY Qty: 90 0RF bumetanide 1 mg Tablet 2 mg PO BID@0800,1700 Qty: 180 0RF Protocol: Hold for SBP< HOLD for SBP < : 90 Jardiance 10 mg Tablet 10 mg PO DAILY Qty: 180 0RF Continued spironolactone 25 mg tablet 25 mg PO DAILY cholecalciferol (vitamin D3) 25 mcg (1,000 unit) capsule 50 mcg PO DAILY cyanocobalamin (vitamin B-12) 1,000 mcg Tablet 1,000 mcg PO DAILY aspirin 81 mg Tablet,Delayed Release (Dr/Ec) 81 mg PO DAILY ipratropium-albuterol 0.5 mg-3 mg(2.5 mg base)/3 mL solution for nebulization 3 ml inhalation QID omeprazole 40 mg capsule,delayed release(DR/EC) 20 mg PO BID PRN (Reason: Heartburn) trazodone 100 mg tablet 100 mg PO BEDTIME budesonide 0.5 mg/2 mL suspension for nebulization 0.5 mg inhalation BID Hold Instructions: Resume on 09/02/23. oxcarbazepine 600 mg tablet 600 mg PO BEDTIME terazosin 10 mg capsule 20 mg PO BEDTIME rosuvastatin 20 mg tablet 20 mg PO DAILY mirabegron 50 mg tablet extended release 24 hr 50 mg PO DAILY ipratropium-albuterol 0.5 mg-3 mg(2.5 mg base)/3 mL Solution For Nebulization 3 ml inhalation RQ4H WHILE AWAKE PRN (Reason: Shortness Of Breath/Wheezing) Qty: 1 0RF Discontinued desmopressin 0.2 mg tablet 0.2 mg PO DAILY losartan 50 mg tablet 50 mg PO DAILY Hold Instructions: Resume on 09/02/23. furosemide 20 mg tablet 40 mg PO BID Hold Instructions: Resume on 09/02/23. atenolol 50 mg tablet 50 mg PO BID Rx Instructions: patient says she cuts these in half Discharge Orders: Discharge Order (Routine); Ordered 09/24/23 Ordered By: Malcolm Rebolledo Diet: Advance to usual diet Activity on Discharge: As tolerated Stand Alone Forms: Patient Portal Discharge page Print Language: Swedish Other Ambulatory Orders: Basic Metabolic Panel (Routine) Timeframe: [id number] Facility: [facility] - Location: Laboratory Ordered By: Malcolm Rebolledo Care Plan Goals: recovery from heart failure, respiratory failure, opitimizing medication to slow progressin of heart failure and improve quality of life Health Concerns: Hear failue chronic kidney disease with acute complent chronic urinary retention Plan of Treatment: Stop taking Lasix, this is replaced with Bumetadine (Bumex) Stop taking atenolol, this is replaced with Metoprolol (Toprol XL) Jariance is a new medication for heart failure continue other medicaition Also stop taking Desmopressin as not making a difference in urinary retention and can adverse effect on electrolytes, including sodium Continue straight cath as before You will have visiting nurse at home You will have blood work done (BM ) in 3 days Follow up with your Doctor in a week, call for appoointment Follow up with your heart doctor in 1 to 2 weeks, call for appointment Assessment: see above Discharge Date/Time: 09/24/23 12:45
--- NOTE | 2023-09-24 10:07 | P.PNCA_ITS ---
Subjective Subjective Date of Service: 09/24/23 Principal diagnosis: Shortness of breath, CHF. Interval history: Patient states she is feeling okay. She is again asking about getting discharged. She states she has been asking every day to leave the hospital and upset that she is still here. Explained that she had to be diuresed and that is why she was staying. However, not clear if she is convinced or not. Review of Systems Review of Systems Yes all other systems are reviewed and are negative Constitutional: Reports as per HPI and Reports no additional constitutional complaints Eyes: Reports as per HPI and Denies no additional eye complaints Denies system reviewed and no additional complaints, except as documented and Reports as per HPI Cardiovascular: Reports as per HPI, Reports no additional cardiovascular complaints, Denies acrocyanosis, Denies cool extremities, Denies chest pain, Denies leg edema, Denies lightheadedness, Denies palpitations and Denies dyspnea Respiratory: Reports as per HPI, Denies no additional respiratory complaints and Denies dyspnea Gastrointestinal: Reports as per HPI and Denies no additional gastrointestinal complaints Genitourinary: Reports as per HPI Musculoskeletal: Reports no additional musculoskeletal complaints and Reports as per HPI Skin/Breast: Reports system reviewed and no additional complaints, except as docu Reports system reviewed and no additional complaints, except as documented and Reports as per HPI Psychiatric: Reports no additional psychiatric complaints and Reports as per HPI Endocrine: Reports no additional endocrine complaints, Reports as per HPI and Denies palpitations Hematologic/Lymphatic: Reports no additional hematologic/lymphatic complaints and Reports as per HPI Allergic/Immunologic: Reports no additional allergic/immunologic complaints and Reports as per HPI Physical Exam Vital Signs: Last Vital Signs Temp 97.7 F 09/24/23 08:00 Pulse 52 09/24/23 08:02 Resp 16 09/24/23 08:02 BP 112/49 L 09/24/23 08:00 Pulse Ox 94 09/24/23 08:00 O2 Del Method Nasal Cannula 09/24/23 08:00 O2 Flow Rate 2 09/24/23 08:00 Oxygen Flow Rate 6 09/16/23 18:05 BMI result Body Mass Index 19.9 Const General: comfortable and no acute distress Orientation/consciousness: patient oriented x3 HEENT Other: Unremarkable Head: Yes normal to inspection Neck Neck: Yes normal visual inspection Chest Chest palpation & inspection: normal inspection of the chest Resp Auscultation: clear to auscultation bilaterally Cardio Palpation: normal PMI Heart sounds: S1 normal heart sound present, S2 normal heart sound present, no gallops, no murmurs and no rubs GI Palpation (GI): Soft to palpation Back/Spine/Pelvis Other: unremarkable Skin General skin exam: no rashes or lesions noted Neuro General: patient oriented x3 Extrem General: Yes normal to inspection Psych Mental Status: mental status grossly normal Objective Labs and Meds 09/23/23 08:54 09/24/23 05:55 Lab results: Laboratory Results - last 24 hr 09/24/23 05:55 Sodium 138 Potassium 3.5 Chloride 95 L Carbon Dioxide 30 H Anion Gap 17 BUN 48 H Creatinine 1.18 Estim Creat Clear Calc 29.4 Estimated GFR 44 Random Glucose 112 Calcium 9.1 B-Natriuretic Peptide 2737 H Progress Note: A&P Assessment and plan (1) Acute on chronic systolic congestive heart failure, NYHA class 3: Status: Acute Plan Per the most recent echocardiogram at [facility] [place], LVEF is 30-35%, lateral wall is akinetic. Basal to mid inferior akinetic. Severe mitral annular calcification. Mild regurgitation. Mild aortic stenosis/moderate aortic regurgitation. Left atrium severely dilated. Compared to the prior study from June it was felt that the mitral regurgitation as well as tricuspid regurgitation had improved. Currently, she is not appearing volume overload peripherally. No overt crackles in the lung rosales. Remains on diuretic drip. Overall, severe ischemic cardiomyopathy; underlying coronary disease; COPD; many comorbidities. So far, she has diuresed about 14 L. Negative balance is-8.4 L. Cardiac BNP was as much in the 9800 range. Now is 2737. Significantly improved. She has been switched to oral diuretics. That seems reasonable. It appears there was an issue with ARB tolerance. For beta-blockers, she was on atenolol at home but now on metoprolol. Can change that to sustained release preparation, more appropriate for heart failure. Also on spironolactone. Consider adding Jardiance. Discussed with Dr. Rebolledo Time Spent With Patient Time: Total time managing care of this patient today ____ minutes. Progress Note: Quality Stroke Does the patient have a stroke diagnosis?: No Procedures Date of Service Date of Service: 09/24/23
[2023-09-24 10:16] VITALS: PULSE 58
[2023-09-24 11:08] VITALS: BP 155/65; PULSE 64; RESP 20; TEMP 36.2; O2SAT 96
--- NOTE | 2023-09-24 11:50 | MHC.CM.PN ---
CM met with Patient at bedside and addressed IMM with her, providing Patient with the original and a copy has been placed on the chart. Per ROUNDS discussion, Patient will be medically cleared for dc to home today, with services. A referral was made to [facility], who has been made aware of today's dc. Per Patient, she has someone on their way to solo truck driver her home.
--- NOTE | 2023-09-24 12:14 | P.F2F_ITS ---
Service Date Service Date: 09/24/23 Encounter Date of encounter: 09/24/23 Reasons for Services Signs and symptoms assessed: Heart failure, shortness of breath with minimal effort Reason for long term: medication management, medication treatment and teach disease management Homebound: Leaving the home is medically contraindicated at this time without the asist of a device and/or another person due th the listed conditions above and below. Reason homebound: shortness of breath with minimal effort and weakness related to hospital stay Homebound supporting statement: Homebound due to prolonged hospitalization causing weakness, shortness of breath with minimal effort due to heart failure and therefore needs the assistance of another person Certification: Based on the above findings, I certify that this patient is confined to the home and needs intermittent long term care, physical therapy and/or speech therapy, or continues to need occupational therapy. The patient is under my care, and I have initiated the establishment of the plan of care. The patient will be followed by a physician who will periodically review the plan of care. Time Spent With Patient Time: Total time managing care of this patient today ____ minutes.
--- NOTE | 2023-09-24 12:40 | P.PNNP_ITS ---
Subjective Subjective Date of Service: 09/24/23 Principal diagnosis: Shortness of breath, CHF. Interval history: Events noted Physical Exam 2 Vital Signs: Vital Signs: Last Vital Signs Temp 97.1 F 09/24/23 11:08 Pulse 64 09/24/23 11:08 Resp 20 09/24/23 11:08 BP 155/65 H 09/24/23 11:08 Pulse Ox 96 09/24/23 11:08 O2 Del Method Nasal Cannula 09/24/23 11:08 O2 Flow Rate 2 09/24/23 11:08 Oxygen Flow Rate 6 09/16/23 18:05 BMI result Body Mass Index 19.9 Objective Data Labs 09/23/23 08:54 09/24/23 05:55 Labs: Laboratory Results - last 24 hr 09/24/23 05:55 Sodium 138 Potassium 3.5 Chloride 95 L Carbon Dioxide 30 H Anion Gap 17 BUN 48 H Creatinine 1.18 Estim Creat Clear Calc 29.4 Estimated GFR 44 Random Glucose 112 Calcium 9.1 B-Natriuretic Peptide 2737 H Microbiology Microbiology Results: Microbiology 09/16/23 18:28 Blood - Venous Blood Culture - Final No growth after 5 days. 09/16/23 18:30 Blood - Venous Blood Culture - Final No growth after 5 days. 09/16/23 22:08 Urine clean catch - Clean Catch Midstream Urine Culture - Final Escherichia coli Procedures Date of Service Date of Service: 09/24/23 Assessment & Plan Assessment and plan (1) CKD (chronic kidney disease): Status: Acute (2) Acute kidney injury: Status: Acute Plan JUAN MIGUEL due to compromise in renal perfusion due to CR Syndrome UO good- No reason to suspect obst uropathy/ AIN/GN Keep O > I No indication for renal replacement; C/W rest of current mgt Unsure why she was on DDAVP 2 mcg: Despite this, Na is normal Time Spent With Patient Time: Total time managing care of this patient today ____ minutes. Progress Note: Quality Stroke Does the patient have a stroke diagnosis?: No
== END 2023-09-24 12:45 | disposition home health service (06) | DRG 291 ==
LOC: HO.ED 19:09 → HO.EDOVER 19:54 → HO.S3 20:20 → HO.IMC 09-19 13:41
PROVIDERS: Admitting Provider Student in an Organized Health Care Education/Training Program; Emergency Provider Student in an Organized Health Care Education/Training Program; PCP Family Medicine; Visit Provider Internal Medicine
DX: I13.0 Hypertensive heart and chronic kidney disease with heart failure and stage 1 through stage 4 chronic kidney disease, or unspecified chronic kidney disease (principal); I50.23 Acute on chronic systolic (congestive) heart failure; J96.21 Acute and chronic respiratory failure with hypoxia; E78.3 Hyperchylomicronemia; I73.9 Peripheral vascular disease, unspecified; I25.5 Ischemic cardiomyopathy; D50.9 Iron deficiency anemia, unspecified; R33.9 Retention of urine, unspecified; I08.3 Combined rheumatic disorders of mitral, aortic and tricuspid valves; F39 Unspecified mood [affective] disorder; F41.9 Anxiety disorder, unspecified; I27.20 Pulmonary hypertension, unspecified; N18.30 Chronic kidney disease, stage 3 unspecified; F17.210 Nicotine dependence, cigarettes, uncomplicated; Z99.81 Dependence on supplemental oxygen; Z71.6 Tobacco abuse counseling; Z20.822 Contact with and (suspected) exposure to COVID-19; Z79.82 Long term (current) use of aspirin; Z79.899 Other long term (current) drug therapy
CPT/HCPCS: 0241U; 36415; 71045; 74176; 76775; 80048; 80076; 81001; 82803; 83605; 83690; 83735; 83880; 84484; 85025; 85027; 86850; 86900; 86901; 86923; 87040; 87086; 87088; 87186; 93005; 93975; 94640; 97116; 97162; 97530; 99285; C1758; J0696; J1630; J1650; J1939; J1940; J2060; J2185; J2919; P9016

== ENCOUNTER → 2023-09-16 18:08 | Outpatient (BNV) | payer MEDICARE, OTHER, SELFPAY | PROVIDERS: Admitting Provider Student in an Organized Health Care Education/Training Program; Emergency Provider Student in an Organized Health Care Education/Training Program; Visit Provider Internal Medicine Cardiovascular Disease | DX: R94.31 Abnormal electrocardiogram [ECG] [EKG] (principal) | CPT/HCPCS: 93010 ==

== ENCOUNTER → 2023-09-16 19:47 | Outpatient (BNV) | payer MEDICARE, OTHER, SELFPAY | PROVIDERS: Admitting Provider Student in an Organized Health Care Education/Training Program; Emergency Provider Student in an Organized Health Care Education/Training Program; PCP Family Medicine; Visit Provider Internal Medicine | DX: I50.9 Heart failure, unspecified (principal); N17.9 Acute kidney failure, unspecified; I34.0 Nonrheumatic mitral (valve) insufficiency; R06.00 Dyspnea, unspecified; R82.71 Bacteriuria | CPT/HCPCS: 99222 ==

== ENCOUNTER → 2023-09-16 19:47 | Outpatient (BNV) | payer MEDICARE, OTHER, SELFPAY | PROVIDERS: Admitting Provider Student in an Organized Health Care Education/Training Program; Emergency Provider Student in an Organized Health Care Education/Training Program; Visit Provider Student in an Organized Health Care Education/Training Program | DX: J44.1 Chronic obstructive pulmonary disease with (acute) exacerbation (principal); J96.21 Acute and chronic respiratory failure with hypoxia; I50.23 Acute on chronic systolic (congestive) heart failure | CPT/HCPCS: 99223; 99232; 99233; 99239; G0180 ==

== ENCOUNTER → 2023-09-16 19:47 | Outpatient (BNV) | payer MEDICARE, OTHER, SELFPAY | PROVIDERS: Admitting Provider Student in an Organized Health Care Education/Training Program; Emergency Provider Student in an Organized Health Care Education/Training Program; PCP Family Medicine; Visit Provider Internal Medicine Nephrology | DX: N17.9 Acute kidney failure, unspecified (principal); N18.4 Chronic kidney disease, stage 4 (severe); I50.23 Acute on chronic systolic (congestive) heart failure | CPT/HCPCS: 99223; 99232 ==

== ENCOUNTER → 2023-09-16 19:47 | Outpatient (BNV) | payer MEDICARE, OTHER, SELFPAY | PROVIDERS: Admitting Provider Student in an Organized Health Care Education/Training Program; Emergency Provider Student in an Organized Health Care Education/Training Program; Visit Provider Internal Medicine Cardiovascular Disease | DX: I50.23 Acute on chronic systolic (congestive) heart failure (principal) | CPT/HCPCS: 99222; 99233 ==

== ENCOUNTER 2023-10-02 15:24 | Outpatient (REF) | payer MEDICARE, OTHER, SELFPAY ==
[2023-10-02 16:14] LABS: Anion Gap 17 (12-20); Blood Urea Nitrogen 22 mg/dL (9-16); Calcium 9.3 mg/dL (8.4-10.2); Carbon Dioxide 29 mmol/L (22-29); Chloride 99 mmol/L (96-108); Estimated Glomerular Filt Rate 42; Glucose Random 94 mg/dL (60-115); Potassium 3.9 mmol/L (3.3-5.1); Sodium 141 mmol/L (135-145)
== END 2023-10-02 15:25 | disposition home or self-care (01) ==
LOC: HO.HVNA 15:24
PROVIDERS: Visit Provider Internal Medicine Cardiovascular Disease
DX: I50.9 Heart failure, unspecified (principal)
CPT/HCPCS: 36415; 80048

== ENCOUNTER 2023-10-03 11:43 | Outpatient (REF) | payer MEDICARE, OTHER, SELFPAY ==
[2023-10-03 12:09] LABS: B Type Natriuretic Peptide 3257 pg/mL (<100)
[2023-10-03 12:36] LABS: Anion Gap 13 (12-20); Blood Urea Nitrogen 21 mg/dL (9-16); Calcium 9.3 mg/dL (8.4-10.2); Carbon Dioxide 31 mmol/L (22-29); Chloride 100 mmol/L (96-108); Estimated Glomerular Filt Rate 37; Glucose Random 118 mg/dL (60-115); Potassium 4.3 mmol/L (3.3-5.1); Sodium 140 mmol/L (135-145)
== END 2023-10-03 11:44 | disposition home or self-care (01) ==
LOC: HO.HVNA 11:43
PROVIDERS: Visit Provider Internal Medicine Cardiovascular Disease
DX: I50.20 Unspecified systolic (congestive) heart failure (principal)
CPT/HCPCS: 36415; 80048; 83880